=== PATIENT | female | born 1930 | race Caucasian/White ===

== ENCOUNTER 2016-11-08 08:58 | Inpatient (IN) ==
--- NOTE | 2016-11-08 09:03 | Emergency Department Note ---
Disposition Clinical Impression: Pneumonia Qualifiers: Pneumonia type: due to unspecified organism Laterality: right Lung location: upper lobe of lung Qualified Code(s): J18.1 - Lobar pneumonia, unspecified organism Chest pain Qualifiers: Chest pain type: unspecified Qualified Code(s): R07.9 - Chest pain, unspecified Disposition: Admitted As Inpatient Condition: Fair Referrals: Albina Bryson MD [Primary Care Provider] - Time of Disposition: 10:56 Chest Pain HPI - General Stated Complaint: chest pain Time Seen by Provider: 11/08/16 08:59 Source: patient Mode of arrival: wheelchair Limitations: no limitations Vital Signs Reviewed: Yes Nursing Notes Reviewed: Yes - History of Present Illness HPI Narrative: 86-year-old with a 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 Pt complaint: chest pain Onset (ago): Just [employer] Duration: constant Pain Location: right chest Quality: aching Pain Radiation: none Improves with: nothing Worsens with: nothing - Related Data Home Medications Medication Instructions Recorded Confirmed Albuterol Sulfate [Proair HFA] 1 puff IH Q4HR PRN 04/29/15 11/04/16 Aspirin 81 mg PO DAILY 04/29/15 11/04/16 Calcium 600 + D Tablet 1 tab PO DAILY 04/29/15 11/04/16 Dicyclomine HCl [Bentyl] 10 mg PO TID PRN 04/29/15 11/04/16 Diltiazem HCl 120 mg PO DAILY 04/29/15 11/04/16 Furosemide [Lasix] 40 mg PO BID PRN 04/29/15 11/04/16 Hydrochlorothiazide 25 mg PO DAILY 04/29/15 11/04/16 LORazepam [Ativan] 1 mg PO QID PRN 04/29/15 11/04/16 Lidocaine/Prilocaine [Emla Cream] 30 gm TP PRN PRN 04/29/15 11/04/16 Lisinopril [Zestril] 20 mg PO BID 04/29/15 11/04/16 Metoprolol [Lopressor] 25 mg PO BID 04/29/15 11/04/16 Mometasone/Formoterol [Dulera 200 2 puff IH BID 04/29/15 11/04/16 Mcg/5 Mcg Inhaler] Ondansetron HCl [Zofran] 8 mg PO Q8H PRN 04/29/15 11/04/16 Prochlorperazine Maleate 10 mg PO Q6HR PRN 04/29/15 11/04/16 [Compazine] Previous Rx's Medication Instructions Recorded Hydrocortisone 1% CREAM [Cortaid] 14 gm TP PRN PRN #1 bottle 02/13/16 Letrozole [Femara] 2.5 mg PO DAILY #90 tablet 02/19/16 Sertraline [Zoloft] 1 tab PO DAILY #30 tablet 04/29/16 PredniSONE 60 mg PO DAILY 5 Days 07/16/16 Colchicine [Colcrys] 0.6 mg PO NOW PRN #30 tablet 08/05/16 Memantine [Namenda] 5 mg PO HS #30 tablet 09/22/16 Febuxostat [Uloric] 40 mg PO DAILY #30 tablet 10/26/16 Allergies Allergy/AdvReac Type Severity Reaction Status Date / Time Penicillins Allergy Mild Hives, Verified 05/06/15 10:42 shortness of breath Constitutional: Denies: fever, chills, weakness, weight change Eyes: Denies: eye pain, eye discharge, vision change ENT ED: Denies: ear pain, throat pain, dental pain, hearing loss, epistaxis, congestion, dysphagia Cardiovascular: Reports: chest pain. Denies: palpitations, dyspnea on exertion , edema, syncope Respiratory: Denies: cough, dyspnea, wheezes, hemoptysis, stridor Gastrointestinal: Reports: abdominal pain. Denies: nausea, vomiting, diarrhea, constipation, hematemesis, melena, hematochezia Genitourinary: Denies: dysuria, frequency, hematuria, discharge Musculoskeletal: Denies: back pain, neck pain, arthralgia, myalgia Integumentary: Denies: rash, abrasion, lesions Neurological: Denies: headache, weakness, numbness, paresthesias, confusion, abnormal gait, vertigo Psychiatric: Denies: anxiety, depression, suicidal thoughts, homicidal thoughts , auditory hallucinations, visual hallucinations Endocrine: Denies: fatigue Hematological/Lymphatic: Denies: easy bleeding, easy bruising Allergic/Immunologic: Denies: facial swelling, urticaria Chest Pain PMH - Past Medical History Medical history: Reports: asthma, cancer, CHF Surgical history: Reports: appendectomy, cancer surgery, cholecystectomy, other Psychiatric history: Reports: no psych history - Social History Smoking Status: Never smoker Alcohol use: Reports: none Drug use: Reports: none Physical Exam - General Limitations: no limitations - Head Head exam: atraumatic, normocephalic, normal inspection - Eye Eye exam: Present: normal appearance, PERRL, EOMI - ENT ENT exam: normal exam, normal oropharynx, mucous membranes moist - Neck Neck exam: Present: normal inspection, full ROM, trachea midline - Chest Chest inspection: Present: normal inspection, symmetric chest wall rise - Respiratory Respiratory exam: Present: normal lung sounds bilaterally - Cardiovascular Cardiovascular exam: Present: regular rate, normal rhythm, normal heart sounds - Abdominal Exam Abdominal exam: Present: soft, Non-Tender. Absent: tenderness, distention, guarding, rebound, rigidity - Extremities Exam Extremities exam: Present: normal inspection, full ROM. Absent: tenderness, pedal edema - Back Exam Back exam: Present: normal inspection, full ROM. Absent: tenderness - Neurological Exam Neurological exam: Present: alert, oriented X3 - Psychiatric Psychiatric exam: Present: normal affect, normal mood - Skin Skin exam: Present: warm, dry, intact, normal color Course - Consultations Consultation #1: Discussed with Dr. Roche, admit to the hospitalist and they will see in consult. Recommend Trice. Time: 10:54 Consultation #2: Discussed with bryanna Sims. Time: 11:07 Vital Signs Temperature 97.8 F 11/08/16 09:01 Pulse Rate 68 11/08/16 09:01 Respiratory Rate 24 11/08/16 09:01 Blood Pressure 171/64 11/08/16 09:01 O2 Sat by Pulse Oximetry 95 11/08/16 09:01 Temperature 97.8 F 11/08/16 09:01 Pulse Rate 59 11/08/16 10:13 Respiratory Rate 18 11/08/16 10:13 Blood Pressure 159/72 11/08/16 10:13 O2 Sat by Pulse Oximetry 95 11/08/16 10:13 Oxygen Delivery Oxygen Delivery Nasal Cannula Chest Pain - Lab Data Lab results reviewed: Yes I reviewed the patient's lab results. Result diagrams: 11/08/16 09:13 02/13/17 09:13 Lab Results 11/08/16 11/08/16 11/08/16 Range/Units 09:13 09:13 09:13 WBC 8.5 (4.3-11.1) K/mcL RBC 4.09 (3.82-4.97) M/mcL Hgb 11.6 (11.5-15.4) g/dL Hct 36.3 (35.3-44.9) % MCV 88.8 (83.0-100.0) fL MCH 28.4 (28.0-33.3) pg MCHC 32.0 (31.6-35.5) g/dL RDW 14.1 (11.5-14.5) % Plt Count 194 (140-400) K/mcL MPV 10.1 (9.4-12.4) fL Immature Gran % 0.4 (0-4) % Seg Neutrophils % 77.5 % Lymphocytes % 12.4 % Monocytes % 5.8 % Eosinophils % 3.2 % Basophils % 0.7 % Neutrophils # 6.6 (1.6-8.9) K/mcL Lymphocytes # 1.1 (0.6-4.6) K/mcL Monocytes # 0.5 (0.0-1.3) K/mcL Eosinophils # 0.3 (0.0-0.6) K/mcL Basophils # 0.1 (0.0-0.2) K/mcL PT 12.0 (9.4-12.1) Seconds INR 1.1 APTT 30.4 (26.0-36.0) Seconds D-Dimer (0-500) ng/mLFEU Sodium (136-145) mEq/L Potassium (3.5-4.5) mEq/L Chloride (98-109) mEq/L Carbon Dioxide (19-29) mEq/L BUN (7-20) mg/dL Creatinine (0.57-1.11) mg/dL Est GFR ( Amer) (> 60) Est GFR (Non-Af Amer) (> 60) BUN/Creatinine Ratio (6-26) Glucose (70-99) mg/dL Calculated Osmolality (280-300) Calcium (8.6-10.8) mg/dL Troponin I (0-0.03) ng/mL B-Natriuretic Peptide 167 H (0-100) pg/mL 11/08/16 11/08/16 11/08/16 Range/Units 09:13 09:13 09:13 WBC (4.3-11.1) K/mcL RBC (3.82-4.97) M/mcL Hgb (11.5-15.4) g/dL Hct (35.3-44.9) % MCV (83.0-100.0) fL MCH (28.0-33.3) pg MCHC (31.6-35.5) g/dL RDW (11.5-14.5) % Plt Count (140-400) K/mcL MPV (9.4-12.4) fL Immature Gran % (0-4) % Seg Neutrophils % % Lymphocytes % % Monocytes % % Eosinophils % % Basophils % % Neutrophils # (1.6-8.9) K/mcL Lymphocytes # (0.6-4.6) K/mcL Monocytes # (0.0-1.3) K/mcL Eosinophils # (0.0-0.6) K/mcL Basophils # (0.0-0.2) K/mcL PT (9.4-12.1) Seconds INR APTT (26.0-36.0) Seconds D-Dimer 1606 H (0-500) ng/mLFEU Sodium 141 (136-145) mEq/L Potassium 4.1 (3.5-4.5) mEq/L Chloride 105 (98-109) mEq/L Carbon Dioxide 26 (19-29) mEq/L BUN 17 (7-20) mg/dL Creatinine 0.94 (0.57-1.11) mg/dL Est GFR ( Amer) > 60 (> 60) Est GFR (Non-Af Amer) 57 L (> 60) BUN/Creatinine Ratio 18 (6-26) Glucose 105 H (70-99) mg/dL Calculated Osmolality 294 (280-300) Calcium 9.5 (8.6-10.8) mg/dL Troponin I 0.00 (0-0.03) ng/mL B-Natriuretic Peptide (0-100) pg/mL - Radiology Data Radiology results reviewed: Yes I reviewed the patient's radiology results. Chest X-Ray 11/08/16 09:00 IMPRESSION: Right mid lung airspace opacity corresponds to an area of scarring identified on recent CT chest. No new focal consolidation. Left-sided MediPort catheter tip projects over the distal left brachiocephalic vein. D/ : / 11/08/2016 09:56:18 Leigh Branch MD / Ivana Rousseau Interpreting Provider: Leigh Branch MD Abdomen/Pelvis CTA 11/08/16 09:04 IMPRESSION: 1. New right upper lobe infiltrate compared to CT eleven days ago, consistent with a pneumonia. Otherwise stable CT of the chest. 2. No acute findings within the abdomen or pelvis. Redemonstration of presumed hepatic metastatic disease as well as omental caking consistent with carcinomatosis. 3. Severe aortoiliac plaque disease. 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 4. No evidence of pulmonary embolic disease. D/ /08/2016 10:45:13 Pete Ortega MD / mariam Interpreting Provider: Pete Ortega MD Chest CTA 11/08/16 09:04 IMPRESSION: 1. New right upper lobe infiltrate compared to CT eleven days ago, consistent with a pneumonia. Otherwise stable CT of the chest. 2. No acute findings within the abdomen or pelvis. Redemonstration of presumed hepatic metastatic disease as well as omental caking consistent with carcinomatosis. 3. Severe aortoiliac plaque disease. 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 4. No evidence of pulmonary embolic disease. D/ /08/2016 10:45:13 Pete Ortega MD / mariam Interpreting Provider: Pete Ortega MD - EKG Data EKG attestation: Yes I reviewed and interpreted this EKG. EKG shows normal: sinus rhythm Rate: normal Rhythm: NSR Heart block present: 1st Degree Interpretation: no acute changes
[2016-11-08] MEDS ORDERED: Ondansetron 4 MG/2 ML VIAL IVP ONE (09:08)
[2016-11-08] MEDS ORDERED: *HR* HYDROmorphone (PF) 1 MG/ML SYRINGE IVP ONE (09:08)
[2016-11-08 09:21] LABS: Basophils # 0.1 K/mcL (0.0-0.2); Basophils % 0.7 %; Eosinophils # 0.3 K/mcL (0.0-0.6); Eosinophils % 3.2 %; Hematocrit 36.3 % (35.3-44.9); Hemoglobin 11.6 g/dL (11.5-15.4); Immature Granulocytes % 0.4 % (0-4); Lymphocytes # 1.1 K/mcL (0.6-4.6); Lymphocytes % 12.4 %; Mean Corpuscular Hemoglobin 28.4 pg (28.0-33.3); Mean Corpuscular Volume 88.8 fL (83.0-100.0); Mean Platelet Volume 10.1 fL (9.4-12.4); Monocytes # 0.5 K/mcL (0.0-1.3); Monocytes % 5.8 %; Neutrophils # 6.6 K/mcL (1.6-8.9); Platelet Count 194 K/mcL (140-400); Red Blood Count 4.09 M/mcL (3.82-4.97); Red Cell Distribution Width 14.1 % (11.5-14.5); Segmented Neutrophils % 77.5 %
[2016-11-08 09:26] LABS: INR 1.1
[2016-11-08 09:28] LABS: Activated Partial Thrombo Time 30.4 Seconds (26.0-36.0)
[2016-11-08 09:36] LABS: BUN/Creatinine Ratio 18 (6-26); Blood Urea Nitrogen 17 mg/dL (7-20); Calcium 9.5 mg/dL (8.6-10.8); Carbon Dioxide 26 mEq/L (19-29); Chloride 105 mEq/L (98-109); Glucose 105 mg/dL (70-99); Osmolality,Calculated 294 (280-300); Potassium 4.1 mEq/L (3.5-4.5); Sodium 141 mEq/L (136-145); eGFR For African Americans > 60 (> 60); eGFR For Non-African Americans 57 (> 60)
[2016-11-08] MEDS ORDERED: Levofloxacin 750 MG/150 ML 750 MG/150 ML BAG IVPB ONE (10:45)
[2016-11-08] MEDS ORDERED: Acetaminophen 325 MG TABLET PO PRN (14:08)
[2016-11-08] MEDS ORDERED: Ondansetron 4 MG/2 ML VIAL IVP PRN (14:08)
[2016-11-08] MEDS ORDERED: Naloxone 0.4 MG/ML INJ IVP PRN (14:08)
[2016-11-08] MEDS ORDERED: Colchicine 0.6 MG TABLET PO PRN (14:18)
[2016-11-08] MEDS ORDERED: Furosemide 40 MG TABLET PO PRN (14:18)
--- NOTE | 2016-11-08 14:22 | Internal Med History&Physical ---
Date of Encounter: 11/08/16 Time of Encounter: 11:00 Assessment and Plan (1) Right upper lobe pneumonia Current visit: Yes Status: Acute Community-acquired pneumonia. The patient did not have recent hospitalization or chemotherapy. We will treat with Levaquin. Check pneumococcal antigen. Follow-up blood cultures. Oxygen as needed. Hydromorphone as needed for pain. The patient is at high risk for morbidity and mortality complications due to pneumonia and history of active cancer and use of IV control substances which are needed for pain control. Qualifiers: Pneumonia type: due to unspecified organism Qualified Code(s): J18.1 - Lobar pneumonia, unspecified organism (2) Primary peritoneal carcinomatosis Current visit: No Status: Acute Possibly responsible for the liver metastasis. Per chart review there was a note to the previous oncology visit of a right upper lobe lung nodule. I wonder that could be responsible for the pneumonia, but causing obstruction. Ask oncology to provide some improvement. We will continue with anti-estrogen therapy. 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 (5) Breast cancer Current visit: Yes Status: Acute This has been in remission after chemotherapy and resection. We will consult oncology. Qualifiers: Breast location: unspecified site of breast Patient sex: female Laterality: right Qualified Code(s): C50.911 - Malignant neoplasm of unspecified site of right female breast Internal Medicine - H&P: HPI Chief complaint: Chest pain Admitted From: Emergency Dept Plans for Post Hospital Care: Home History of present illness: Ms. Walden is a 86 year old female with history of BRCA2 mutation, breast cancer and metastatic ovarian cancer who presented to the hospital for an outpatient and scheduled liver biopsy and was directed to the emergency department due to reports of chest pain. The patient had severe sudden onset chest pain early this morning located in the right side of the chest worse with inspiration, acute and sharp in nature. Denies associated fever or chest chills diaphoresis, cough and shortness of breath. A CT scan of the chest revealed right upper lobe pneumonia. Family history pertinent for multiple family members tested positive for BRCA2 mutation, patient's daughter suffered with breast cancer. A 10 point review of systems was negative except as above. Past Med Surg Social Fam HX - Past Medical History Medical history: asthma, cancer, CHF Psychiatric history: no psych history - Past Surgical History Surgical History: appendectomy, cancer surgery, cholecystectomy, other - Social History Smoking Status: Never smoker Smokeless Tobacco Status: No Alcohol use: none Drug use: none - Family History Mother Age: 92 Living Status: Age at : 92 Cause of : CHF Hx Family Cardiac Disorders: Yes Hx Family Respiratory Disorders: No Hx Family Cancer: No Hx Family Endocrine Disorder: Yes (DM) Hx Family Neurologic Disorders: No Internal Medicine - H&P: Meds Albuterol Sulfate [Proair HFA] 1 puff IH Q4HR PRN 04/29/15 [History] Furosemide [Lasix] 40 mg PO BID PRN 04/29/15 [History] Hydrochlorothiazide 25 mg PO DAILY 04/29/15 [History] Mometasone/Formoterol [Dulera 200 Mcg/5 Mcg Inhaler] 2 puff IH BID 04/29/15 [ History] Letrozole [Femara] 2.5 mg PO DAILY #90 tablet 02/19/16 [Rx] Colchicine [Colcrys] 0.6 mg PO NOW PRN #30 tablet 08/05/16 [Rx] Memantine [Namenda] 5 mg PO HS #30 tablet 09/22/16 [Rx] Febuxostat [Uloric] 40 mg PO DAILY #30 tablet 10/26/16 [Rx] Diltiazem HCl [Diltiazem ER] 180 mg PO QAM 11/08/16 [History] Metoprolol [Lopressor] 50 mg PO BID 11/08/16 [History] Potassium Chloride [Klor-Con 10] 10 meq PO Q48H 11/08/16 [History] Ropinirole HCl [Requip] 0.5 - 1 mg PO HS 11/08/16 [History] Allergies Penicillins Allergy (Mild, Verified 11/08/16 12:02) Hives, shortness of breath All Systems PM: A 10-system review of systems was performed and is negative for pertinent findings except as documented above in the HPI. - Constitutional Vitals: Temp Pulse Resp BP Pulse Ox 97.4 F L 55 20 140/59 93 L 11/08/16 13:28 11/08/16 13:28 11/08/16 13:28 11/08/16 13:28 11/08/16 13:34 General appearance: Present: A&O X 3 - Respiratory Respiratory exam: Present: CTAB. Absent: accessory muscle use, rales, rhonchi, wheezes - Cardiovascular Cardiovascular exam: Present: RRR, +S1, +S2. Absent: diastolic murmur, gallop, rubs, systolic murmur - GI/Abdominal GI/Abdominal exam: Present: normal bowel sounds, soft, no peritoneal signs. Absent: distended, tenderness - Extremities Exam Extremities exam: Present: warm, radial pulses palpable and symetrical. Absent : calf tenderness, cyanotic, pedal edema Additional comments: Right upper extremity lymphedema - Neurological Exam Neurological exam: Present: CN II-XII intact, oriented X3, no focal deficits. Absent: pronater drift, facial droop, speech deficit - Skin Skin exam: Present: dry, intact Additional comments: Status post right mastectomy Internal Med - H&P Results - Labs CBC & Chem 7: 11/08/16 09:13 11/08/16 09:13
[2016-11-08] MEDS: predniSONE 20 MG TABLET PO SCH (15:17)
[2016-11-08] MEDS: *HR* OxyCODONE Immed Rel 5 MG TABLET PO PRN ×2 (15:17→22:57)
--- NOTE | 2016-11-08 15:46 | Oncology Inp Consult Note ---
Date of Encounter: 11/08/16 Time of Encounter: 17:00 Assessment and Plan (1) Breast cancer in female Status: Acute Assessment and plan: E ER, ME positive and HER-2/joe negative, stage IIIc. She received adjuvant chemotherapy and is currently on Femara, tolerating it well. has lymphedema of the right upper extremity secondary to lymph node dissection. Continue the Femara while the patient is in the hospital. She will follow-up with Dr. Rocha as an outpatient. Qualifiers: Qualified Code(s): C50.011 - Malignant neoplasm of nipple and areola, right female breast (2) Pneumonia Status: Acute Assessment and plan: Incidental finding of right upper lobe pneumonia on CT scan of the chest done today to rule out PE. Apart from pain on inspiration, the patient does not have any other symptoms of a pneumonia such as cough, shortness of breath or fever. She is currently on Levaquin. Qualifiers: Pneumonia type: due to unspecified organism Laterality: right Lung location: upper lobe of lung Qualified Code(s): J18.1 - Lobar pneumonia, unspecified organism (3) Primary peritoneal carcinomatosis Status: Acute Assessment and plan: The omental mass has been stable on prior imaging, but she has new metastatic disease in the liver. The liver mass as well as the omental mass or stable on a CT of the abdomen obtained today. The patient was scheduled for a liver biopsy today but was unable to get it. If the patient is going to be the hospital for 2-3 days, recommend that the liver biopsy be done while she is an inpatient. She currently does not have any symptoms from the carcinomatosis. (4) Chest wall pain, chronic Status: Acute Assessment and plan: Could be related to right chest wall nodularity that developed after right mastectomy. I am not certain if the liver metastases are also contributing to the pain. Also possible that the right lung pneumonia may be causing pain on deep inspiration. (5) Anemia Status: Acute Assessment and plan: Chronic, hemoglobin is almost normal today. Most probably related to underlying inflammation from malignancy. Qualifiers: Qualified Code(s): D64.81 - Anemia due to antineoplastic chemotherapy - Data of Consult Requesting Physician: Thalia Zeng Primary Care Provider: Albina Bryson - Consult Narrative Reason for consult: Hx of breast cancer History of present illness: Ms. Walden is an 86 year old female with a history of triple positive breast cancer, peritoneal carcinomatosis, BRCA2 positive, who is admitted today with complaints of right chest pain when she presented to the hospital for a liver biopsy. The chest pain was of sudden onset, worse on taking a deep breath. CT of the chest at admission showed right upper lobe airspace disease concerning for pneumonia. Oncology has been consulted for history of breast and Ovarian cancers. the patient is followed by Dr. Rocha at [facility]. the breast cancer was diagnosed in November 2014 and she had right mastectomy and left lumpectomy in December. The left breast did not show any evidence of malignancy. the right breast showed evidence of invasive ductal carcinoma,ER, ME positive and HER-2 negative. 5.5 cm in maximal dimension, 12 out of 18 lymph nodes positive and with lymphovascular, T3 N3 M0, stage IIIc. she received adjuvant therpy with Cytoxan and Taxotere from February to April, followed by radiation, which finished in July. Imaging in September 2015 showed a 2.6 centimeter irregular omental thickening in the left lower abdominal wall. This mass had FDG avidity on PET scan and was present on a previous PET scan. 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 Recommendations from [facility], were for chemotherapy with carboplatin and Taxol to be followed by resection, but the patient declined. She was started on Arimidex since ER and ME were positive but she developed a rash and was changed to Femara. CT of the chest, abdomen and pelvis on 10/28/2016 showed new metastatic disease in the liver, and other stable changes without any other new metastatic disease. Genetic testing at [facility] revealed that she is BRCA 2 positive. Her 2 daughters are also BRCA2 positive. She was scheduled for liver biopsy to establish the site of origin of metastatic disease. Today the patient reports continued pain in the right chest, worse with breathing. She had otherwise been doing well as an outpatient and denied any fevers, chills or shortness of breath. She denied any problems with the Femara. Past Med Surg Social Fam HX - Past Medical History Medical history: asthma, cancer, CHF Psychiatric history: no psych history - Past Surgical History Surgical History: appendectomy, cancer surgery, cholecystectomy, other - Social History Smoking Status: Never smoker Smokeless Tobacco Status: No Alcohol use: none Drug use: none - Family History Mother Age: 92 Living Status: Age at : 92 Cause of : CHF Hx Family Cardiac Disorders: Yes Hx Family Respiratory Disorders: No Hx Family Cancer: No Hx Family Endocrine Disorder: Yes (DM) Hx Family Neurologic Disorders: No Medications and Allergies Albuterol Sulfate [Proair HFA] 1 puff IH Q4HR PRN 04/29/15 [History] Furosemide [Lasix] 40 mg PO BID PRN 04/29/15 [History] Hydrochlorothiazide 25 mg PO DAILY 04/29/15 [History] Mometasone/Formoterol [Dulera 200 Mcg/5 Mcg Inhaler] 2 puff IH BID 04/29/15 [ History] Letrozole [Femara] 2.5 mg PO DAILY #90 tablet 02/19/16 [Rx] Colchicine [Colcrys] 0.6 mg PO NOW PRN #30 tablet 08/05/16 [Rx] Memantine [Namenda] 5 mg PO HS #30 tablet 09/22/16 [Rx] Febuxostat [Uloric] 40 mg PO DAILY #30 tablet 10/26/16 [Rx] Diltiazem HCl [Diltiazem ER] 180 mg PO QAM 11/08/16 [History] Metoprolol [Lopressor] 50 mg PO BID 11/08/16 [History] Potassium Chloride [Klor-Con 10] 10 meq PO Q48H 11/08/16 [History] Ropinirole HCl [Requip] 0.5 - 1 mg PO HS 11/08/16 [History] Allergies Penicillins Allergy (Mild, Verified 11/08/16 12:02) Hives, shortness of breath All systems: reviewed and no additional remarkable complaints except as stated Oncology - Exam - Constitutional Vitals: Temp Pulse Resp BP Pulse Ox 97.9 F 61 17 148/76 95 11/08/16 15:14 11/08/16 15:14 11/08/16 15:14 11/08/16 15:14 11/08/16 15:14 General appearance: cooperative, no acute distress, obese - Head Head exam: Present: atraumatic, normocephalic - Eye Eye exam: Present: EOMI, PERRL - ENT ENT exam: Present: mucous membranes moist, normal exam, normal oropharynx - Neck Neck exam: Present: full ROM, normal inspection - Respiratory Respiratory exam: Present: chest wall tenderness, decreased breath sounds - Cardiovascular Cardiovascular exam: Present: RRR, +S1, +S2 - GI/Abdominal GI/Abdominal exam: Present: distended, normal bowel sounds, soft - Extremities Exam Extremities exam: Present: full ROM, normal capillary refill, normal inspection Consult Discharge Plan - Plan Referrals: Albina Bryson MD [Primary Care Provider] -
[2016-11-08] MEDS: Ipratropium/Albuterol Neb 3 ML IH SCH ×2 (16:32→22:41)
--- NOTE | 2016-11-08 19:48 | Electrocardiograph Report ---
[place] [id number] Test Date: 2016-11-08 Pat Name: Juanis Walden Department: 103 Room: 3B45 Gender: F Certified Tumor Registrar: : [id number] Requested By: [facility] [place] Order Number: [id number] Reading MD: Cody Orellana DO Measurements Intervals [place] Rate: 68 P: 64 UT: 220 QRS: -1 QRSD: 81 T: 27 QT: 392 QTc: 409 Interpretive Statements SINUS RHYTHM WITH FIRST DEGREE AV BLOCK Electronically Signed On 11-08-2016 19:46:46 EST by Cody Orellana DO
[2016-11-08] MEDS ORDERED: NON-FORMULARY MEDICATION 1 EACH EACH (Mometasone/Formoterol [Dulera 200 Mcg/5 Mcg Inhaler] IH SCH (21:00)
[2016-11-08] MEDS: rOPINIRole 1 MG TABLET PO SCH (21:51)
[2016-11-09] MEDS: *HR* HYDROmorphone (PF) 1 MG/ML SYRINGE IVP PRN (01:40)
[2016-11-09] MEDS: Ipratropium/Albuterol Neb 3 ML IH SCH ×4 (03:49→22:11)
[2016-11-09 05:10] LABS: Basophils % 0.3 %; Eosinophils % 0.1 %; Hemoglobin 10.3 g/dL (11.5-15.4); Immature Granulocytes % 0.3 % (0-4); Lymphocytes # 0.6 K/mcL (0.6-4.6); Lymphocytes % 9.2 %; Mean Corpuscular HGB Conc 32.2 g/dL (31.6-35.5); Mean Corpuscular Hemoglobin 28.5 pg (28.0-33.3); Mean Corpuscular Volume 88.6 fL (83.0-100.0); Mean Platelet Volume 10.4 fL (9.4-12.4); Monocytes # 0.2 K/mcL (0.0-1.3); Monocytes % 2.4 %; Neutrophils # 6.1 K/mcL (1.6-8.9); Platelet Count 171 K/mcL (140-400); Red Blood Count 3.61 M/mcL (3.82-4.97); Red Cell Distribution Width 13.9 % (11.5-14.5); Segmented Neutrophils % 87.7 %
[2016-11-09 05:28] LABS: BUN/Creatinine Ratio 20 (6-26); Blood Urea Nitrogen 19 mg/dL (7-20); Calcium 9.2 mg/dL (8.6-10.8); Carbon Dioxide 25 mEq/L (19-29); Chloride 106 mEq/L (98-109); Glucose 128 mg/dL (70-99); Osmolality,Calculated 292 (280-300); Sodium 139 mEq/L (136-145); eGFR For African Americans > 60 (> 60); eGFR For Non-African Americans 55 (> 60)
[2016-11-09] MEDS: hydroCHLOROthiazide 25 MG TABLET PO SCH (08:41)
[2016-11-09] MEDS: Letrozole 2.5 MG TABLET PO SCH (08:41)
[2016-11-09] MEDS: predniSONE 20 MG TABLET PO SCH (08:41)
[2016-11-09] MEDS: (Febuxostat [Uloric] 40 MG) PO SCH (08:41)
[2016-11-09] MEDS: Diltiazem CD (24hr) 180 MG CAPSULE PO SCH (08:42)
[2016-11-09] MEDS ORDERED: Levofloxacin 750 MG/150 ML 750 MG/150 ML BAG IVPB SCH (09:00)
[2016-11-09] MEDS: *HR* OxyCODONE Immed Rel 5 MG TABLET PO PRN (11:13)
--- NOTE | 2016-11-09 17:14 | Internal Med Progress Note ---
Date of Encounter: 11/09/16 Time of Encounter: 10:00 - Assessment and plan (1) Right upper lobe pneumonia Current Visit: Yes Status: Acute Assessment and plan: Continue Levaquin treatment Qualifiers: Pneumonia type: due to unspecified organism Qualified Code(s): J18.1 - Lobar pneumonia, unspecified organism (2) Chest pain Current Visit: Yes Status: Acute Assessment and plan: Patient has right sided chest pain, most like pleural pain. Consistent with right-sided pneumonia. CTA has ruled out PE. Initial troponin negative. We will continue antibiotics for pneumonia. Qualifiers: Chest pain type: chest pain on breathing Qualified Code(s): R07.1 - Chest pain on breathing (3) Liver mass Current Visit: Yes Status: Acute Assessment and plan: Suspect for metastatic tumor. Plan for liver biopsy (4) Breast cancer Current Visit: Yes Status: Acute Assessment and plan: pt is follow up with oncologist as outpatient Qualifiers: Breast location: unspecified site of breast Patient sex: female Laterality: right Qualified Code(s): C50.911 - Malignant neoplasm of unspecified site of right female breast (5) DVT prophylaxis Current Visit: Yes Status: Acute Assessment and plan: Heparin subcutaneously (6) Primary peritoneal carcinomatosis Current Visit: No Status: Acute Assessment and plan: Fall oncologist as outpatient (7) CHF (congestive heart failure) Current Visit: No Status: Chronic Assessment and plan: Previous echo reviewed, diastolic CHF. No signs of exacerbation. Continue home medications. Qualifiers: Congestive heart failure type: diastolic Congestive heart failure chronicity: chronic Qualified Code(s): I50.32 - Chronic diastolic (congestive ) heart failure - Time Spent With Patient 25 - 35 minutes - Subjective Interval history: Patient is a 86-year-old female admitted for chest pain. Her past medical history is significant for BRCA2 mutation, breast cancer and metastatic ovarian cancer, asthma, CHF. Patient was seen and examined, she is awake and alert, oriented 3. Complaining of right-sided chest pain, pain is aggravated by deep breath. Vital signs stable. No shortness of breath. Mild cough. Oncology consult appreciated. Plan for liver biopsy because there is a suspected the metastatic mass in liver. Continue antibiotic treatment for pneumonia. - Constitutional Vitals: Temp Pulse Resp BP Pulse Ox 98.2 F 80 15 129/75 94 L 11/09/16 15:24 11/09/16 15:24 11/09/16 15:24 11/09/16 15:24 11/09/16 15:24 General appearance: Present: A&O X 3, no acute distress - Head Head exam: Present: atraumatic, normocephalic - Eye Eye exam: Present: PERRL, conjuntiva pink, sclera anicteric Pupils: Present: PERRL - Neck Neck exam general surgery: Present: supple, trachea midline. Absent: lymphadenopathy - Respiratory Respiratory exam: Present: CTAB. Absent: accessory muscle use, rales, rhonchi, wheezes - Cardiovascular Cardiovascular exam: Present: RRR, +S1, +S2. Absent: diastolic murmur, gallop, rubs, systolic murmur - GI/Abdominal GI/Abdominal exam: Present: normal bowel sounds, soft, no peritoneal signs. Absent: distended, tenderness - Extremities Exam Extremities exam: Present: warm, radial pulses palpable and symetrical. Absent : calf tenderness, cyanotic, pedal edema - Neurological Exam Neurological exam: Present: CN II-XII intact, oriented X3, no focal deficits. Absent: pronater drift, facial droop, speech deficit - Skin Skin exam: Present: dry, intact Internal Medicine: Result - Labs CBC & Chem 7: 11/09/16 04:43 11/09/16 04:43 Labs: Short CBC 11/09/16 Range/Units 04:43 WBC 7.0 (4.3-11.1) K/mcL Hgb 10.3 L (11.5-15.4) g/dL Hct 32.0 L (35.3-44.9) % Plt Count 171 (140-400) K/mcL Neutrophils # 6.1 (1.6-8.9) K/mcL BMP 11/09/16 04:43 Sodium 139 Potassium 5.0 H Chloride 106 Carbon Dioxide 25 BUN 19 Creatinine 0.96 Glucose 128 H Calcium 9.2 - ABG Interpretation ABG results: PT/INR, D-dimer PT 12.0 Seconds (9.4-12.1) 11/08/16 09:13 D-Dimer 1606 ng/mLFEU (0-500) H 11/08/16 09:13 Consult Discharge Plan - Plan Referrals: Albina Bryson MD [Primary Care Provider] - 11/16/16 10:45 am
[2016-11-09] MEDS: *HR* Heparin 5,000 UNIT/ML VIAL SQ SCH (18:36)
[2016-11-09] MEDS: rOPINIRole 1 MG TABLET PO SCH (20:34)
[2016-11-10] MEDS: Ipratropium/Albuterol Neb 3 ML IH SCH ×5 (03:51→21:41)
[2016-11-10 05:22] LABS: Basophils % 0.4 %; Eosinophils % 0.4 %; Hematocrit 30.8 % (35.3-44.9); Hemoglobin 9.9 g/dL (11.5-15.4); Immature Granulocytes % 0.5 % (0-4); Lymphocytes % 11.5 %; Mean Corpuscular HGB Conc 32.1 g/dL (31.6-35.5); Mean Corpuscular Hemoglobin 28.3 pg (28.0-33.3); Mean Platelet Volume 10.6 fL (9.4-12.4); Monocytes # 0.5 K/mcL (0.0-1.3); Monocytes % 5.4 %; Platelet Count 173 K/mcL (140-400); Red Cell Distribution Width 14.1 % (11.5-14.5); Segmented Neutrophils % 81.8 %
[2016-11-10 05:31] LABS: BUN/Creatinine Ratio 28 (6-26); Blood Urea Nitrogen 29 mg/dL (7-20); Calcium 9.1 mg/dL (8.6-10.8); Carbon Dioxide 26 mEq/L (19-29); Chloride 105 mEq/L (98-109); Glucose 111 mg/dL (70-99); Osmolality,Calculated 297 (280-300); Potassium 4.4 mEq/L (3.5-4.5); Sodium 140 mEq/L (136-145); eGFR For African Americans > 60 (> 60); eGFR For Non-African Americans 52 (> 60)
[2016-11-10] MEDS: Acetylcysteine 10% 2 ML INHSOL IH SCH ×3 (09:10→21:41)
[2016-11-10] MEDS: *HR* Heparin 5,000 UNIT/ML VIAL SQ SCH ×2 (09:10→17:20)
[2016-11-10] MEDS ORDERED: *HR* Midazolam HCl 2 MG/2 ML VIAL IV PRN (09:55)
[2016-11-10] MEDS ORDERED: *HR* FentaNYL (PF) 100 MCG/2 ML VIAL IV PRN (09:55)
[2016-11-10] MEDS ORDERED: 0.9 % Sodium Chloride 500 ML ONE (09:58)
--- NOTE | 2016-11-10 10:39 | IR Procedure Note ---
Date of procedure: 11/10/16 Consent Obtained: Written consent Timeout: Correct patient and procedure verified, Correct site verified, Time out performed, Skin prep completed Local anesthetic: Lidocaine 1% Indications: Liver mass, breast and ovarian CA Procedure Performed: Liver mass bx Site/Technique: 18g cores, approx 7, from 3 different areas within mass Results/Findings: Poor cellularity despite within lesion on imaging, 3 spots bx' d Estimated blood loss (cc): 3 Complications: None; Tolerated procedure well Post Procedure Treatment Plan: Monitoring in pts room
[2016-11-10] MEDS ORDERED: Levofloxacin 750 MG/150 ML 750 MG/150 ML BAG IVPB SCH (11:00)
[2016-11-10] MEDS: (Febuxostat [Uloric] 40 MG) PO SCH (13:24)
[2016-11-10] MEDS: Letrozole 2.5 MG TABLET PO SCH (13:31)
[2016-11-10] MEDS: *HR* OxyCODONE Immed Rel 5 MG TABLET PO PRN (13:32)
[2016-11-10] MEDS: Diltiazem CD (24hr) 180 MG CAPSULE PO SCH (14:21)
[2016-11-10] MEDS: hydroCHLOROthiazide 25 MG TABLET PO SCH (14:21)
--- NOTE | 2016-11-10 16:54 | Internal Med Progress Note ---
Date of Encounter: 11/10/16 Time of Encounter: 10:00 - Assessment and plan (1) Right upper lobe pneumonia Current Visit: Yes Status: Acute Assessment and plan: Continue Levaquin treatment Qualifiers: Pneumonia type: due to Pneumococcus Qualified Code(s): J13 - Pneumonia due to Streptococcus pneumoniae (2) Chest pain Current Visit: Yes Status: Acute Assessment and plan: Patient has right sided chest pain, most like pleural pain. Consistent with right-sided pneumonia. CTA has ruled out PE. Initial troponin and a followed troponin negative. We will continue antibiotics for pneumonia. Qualifiers: Chest pain type: chest pain on breathing Qualified Code(s): R07.1 - Chest pain on breathing (3) Liver mass Current Visit: Yes Status: Acute Assessment and plan: Suspect for metastatic tumor. Plan for liver biopsy (4) Breast cancer Current Visit: Yes Status: Acute Assessment and plan: pt is follow up with oncologist as outpatient Qualifiers: Breast location: unspecified site of breast Patient sex: female Laterality: right Qualified Code(s): C50.911 - Malignant neoplasm of unspecified site of right female breast (5) DVT prophylaxis Current Visit: Yes Status: Acute Assessment and plan: Heparin subcutaneously (6) Primary peritoneal carcinomatosis Current Visit: No Status: Acute Assessment and plan: Fall oncologist as outpatient (7) CHF (congestive heart failure) Current Visit: No Status: Chronic Assessment and plan: Previous echo reviewed, diastolic CHF. No signs of exacerbation. Continue home medications. Qualifiers: Congestive heart failure type: diastolic Congestive heart failure chronicity: chronic Qualified Code(s): I50.32 - Chronic diastolic (congestive ) heart failure - Time Spent With Patient 25 - 35 minutes - Subjective Interval history: Patient is a 86-year-old female admitted for chest pain. Her past medical history is significant for BRCA2 mutation, breast cancer and metastatic ovarian cancer, asthma, CHF. Patient was seen and examined, she is awake and alert, oriented 3. Complaining of right-sided chest pain, pain is aggravated by deep breath. Vital signs stable. No shortness of breath. Mild cough. Pt had liver biopsy today. Continue antibiotic treatment for pneumonia. - Constitutional Vitals: Temp Pulse Resp BP Pulse Ox 97.9 F 65 16 129/65 96 11/10/16 15:10 11/10/16 15:10 11/10/16 15:25 11/10/16 15:10 11/10/16 15:25 General appearance: Present: A&O X 3, no acute distress - Head Head exam: Present: atraumatic, normocephalic - Eye Eye exam: Present: PERRL, conjuntiva pink, sclera anicteric Pupils: Present: PERRL - Neck Neck exam general surgery: Present: supple, trachea midline. Absent: lymphadenopathy - Respiratory Respiratory exam: Present: chest wall tenderness, CTAB. Absent: accessory muscle use, rales, rhonchi, wheezes - Cardiovascular Cardiovascular exam: Present: RRR, +S1, +S2. Absent: diastolic murmur, gallop, rubs, systolic murmur - GI/Abdominal GI/Abdominal exam: Present: normal bowel sounds, soft, no peritoneal signs. Absent: distended, tenderness - Extremities Exam Extremities exam: Present: warm, radial pulses palpable and symetrical. Absent : calf tenderness, cyanotic, pedal edema - Neurological Exam Neurological exam: Present: CN II-XII intact, oriented X3, no focal deficits. Absent: pronater drift, facial droop, speech deficit - Skin Skin exam: Present: dry, intact Internal Medicine: Result - Labs CBC & Chem 7: 11/10/16 04:27 11/10/16 04:27 Labs: Short CBC 11/10/16 Range/Units 04:27 WBC 8.5 (4.3-11.1) K/mcL Hgb 9.9 L (11.5-15.4) g/dL Hct 30.8 L (35.3-44.9) % Plt Count 173 (140-400) K/mcL Neutrophils # 7.0 (1.6-8.9) K/mcL BMP 11/10/16 04:27 Sodium 140 Potassium 4.4 Chloride 105 Carbon Dioxide 26 BUN 29 H D Creatinine 1.02 Glucose 111 H Calcium 9.1 Cardiac Enzymes 11/10/16 Range/Units 04:27 Troponin I 0.01 (0-0.03) ng/mL - ABG Interpretation ABG results: PT/INR, D-dimer PT 12.0 Seconds (9.4-12.1) 11/08/16 09:13 D-Dimer 1606 ng/mLFEU (0-500) H 11/08/16 09:13 - Impressions Impressions Liver Biopsy CT 11/10/16 00:00 IMPRESSION: Successful CT guided core biopsy of the right hepatic lobe as described above. D/ / Pete Merrill MD / Pete Merrill MD Interpreting Provider: Pete Merrill MD Consult Discharge Plan - Plan Referrals: Albina Bryson MD [Primary Care Provider] - 11/16/16 10:45 am
[2016-11-10] MEDS: *HR* HYDROmorphone (PF) 1 MG/ML SYRINGE IVP PRN (21:08)
[2016-11-10] MEDS: rOPINIRole 1 MG TABLET PO SCH (21:09)
[2016-11-10] MEDS: Melatonin 3 MG TABLET PO SCH ×2 (21:09)
[2016-11-11] MEDS: Ipratropium/Albuterol Neb 3 ML IH SCH ×4 (03:25→21:37)
[2016-11-11] MEDS: Acetylcysteine 10% 2 ML INHSOL IH SCH ×4 (03:25→21:37)
[2016-11-11 05:09] LABS: Basophils # 0.1 K/mcL (0.0-0.2); Basophils % 0.7 %; Eosinophils # 0.3 K/mcL (0.0-0.6); Eosinophils % 3.3 %; Hematocrit 33.2 % (35.3-44.9); Hemoglobin 10.1 g/dL (11.5-15.4); Immature Granulocytes % 0.7 % (0-4); Lymphocytes # 0.5 K/mcL (0.6-4.6); Lymphocytes % 6.7 %; Mean Corpuscular HGB Conc 30.4 g/dL (31.6-35.5); Mean Corpuscular Hemoglobin 27.4 pg (28.0-33.3); Mean Platelet Volume 10.3 fL (9.4-12.4); Monocytes # 0.4 K/mcL (0.0-1.3); Monocytes % 5.1 %; Neutrophils # 6.3 K/mcL (1.6-8.9); Platelet Count 177 K/mcL (140-400); Red Blood Count 3.69 M/mcL (3.82-4.97); Red Cell Distribution Width 14.4 % (11.5-14.5); Segmented Neutrophils % 83.5 %
[2016-11-11 05:24] LABS: Potassium 4.5 mEq/L (3.5-4.5)
[2016-11-11] MEDS: *HR* Heparin 5,000 UNIT/ML VIAL SQ SCH ×2 (06:02→17:00)
[2016-11-11] MEDS: Letrozole 2.5 MG TABLET PO SCH (10:00)
[2016-11-11] MEDS: Diltiazem CD (24hr) 180 MG CAPSULE PO SCH (10:00)
[2016-11-11] MEDS: hydroCHLOROthiazide 25 MG TABLET PO SCH (10:00)
[2016-11-11] MEDS: (Febuxostat [Uloric] 40 MG) PO SCH (10:01)
[2016-11-11] MEDS ORDERED: Furosemide 20 MG/2 ML VIAL IVP ONE (10:40)
--- NOTE | 2016-11-11 17:15 | Internal Med Progress Note ---
Date of Encounter: 11/11/16 Time of Encounter: 10:00 - Assessment and plan (1) Right upper lobe pneumonia Current Visit: Yes Status: Acute Assessment and plan: Continue Levaquin treatment. Continue supportive treatment. Qualifiers: Pneumonia type: due to Pneumococcus Qualified Code(s): J13 - Pneumonia due to Streptococcus pneumoniae (2) Chest pain Current Visit: Yes Status: Acute Assessment and plan: Patient has right sided chest pain, most like pleural pain. Consistent with right-sided pneumonia. CTA has ruled out PE. Initial troponin and a followed troponin negative. We will continue antibiotics for pneumonia. Qualifiers: Chest pain type: chest pain on breathing Qualified Code(s): R07.1 - Chest pain on breathing (3) Liver mass Current Visit: Yes Status: Acute Assessment and plan: Suspect for metastatic tumor. Plan for liver biopsy (4) Breast cancer Current Visit: Yes Status: Acute Assessment and plan: pt is follow up with oncologist as outpatient Qualifiers: Breast location: unspecified site of breast Patient sex: female Laterality: right Qualified Code(s): C50.911 - Malignant neoplasm of unspecified site of right female breast (5) DVT prophylaxis Current Visit: Yes Status: Acute Assessment and plan: Heparin subcutaneously (6) Primary peritoneal carcinomatosis Current Visit: No Status: Acute Assessment and plan: Follow up with oncologist as outpatient (7) CHF (congestive heart failure) Current Visit: No Status: Chronic Assessment and plan: Previous echo reviewed, diastolic CHF. No signs of exacerbation. Continue home medications. Qualifiers: Congestive heart failure type: diastolic Congestive heart failure chronicity: chronic Qualified Code(s): I50.32 - Chronic diastolic (congestive ) heart failure - Time Spent With Patient 25 - 35 minutes - Subjective Interval history: Patient is a 86-year-old female admitted for chest pain. Her past medical history is significant for BRCA2 mutation, breast cancer and metastatic ovarian cancer, asthma, CHF. Patient was seen and examined, she is awake and alert, oriented 3. Complaining of right-sided chest pain, pain is aggravated by deep breath. Increased cough. Vital signs stable. No shortness of breath. Pt had liver biopsy. Will continue antibiotic treatment for pneumonia. - Constitutional Vitals: Temp Pulse Resp BP Pulse Ox 98.7 F 69 15 165/68 94 L 11/11/16 15:32 11/11/16 15:32 11/11/16 15:32 11/11/16 15:32 11/11/16 15:32 General appearance: Present: A&O X 3, no acute distress - Head Head exam: Present: atraumatic, normocephalic - Eye Eye exam: Present: PERRL, conjuntiva pink, sclera anicteric Pupils: Present: PERRL - Neck Neck exam general surgery: Present: supple, trachea midline. Absent: lymphadenopathy - Respiratory Respiratory exam: Present: CTAB. Absent: accessory muscle use, rales, rhonchi, wheezes - Cardiovascular Cardiovascular exam: Present: RRR, +S1, +S2. Absent: diastolic murmur, gallop, rubs, systolic murmur - GI/Abdominal GI/Abdominal exam: Present: normal bowel sounds, soft, no peritoneal signs. Absent: distended, tenderness - Extremities Exam Extremities exam: Present: warm, radial pulses palpable and symetrical. Absent : calf tenderness, cyanotic, pedal edema - Neurological Exam Neurological exam: Present: CN II-XII intact, oriented X3, no focal deficits. Absent: pronater drift, facial droop, speech deficit - Skin Skin exam: Present: dry, intact Internal Medicine: Result - Labs CBC & Chem 7: 11/11/16 04:47 11/11/16 04:47 Labs: Short CBC 11/11/16 Range/Units 04:47 WBC 7.6 (4.3-11.1) K/mcL Hgb 10.1 L (11.5-15.4) g/dL Hct 33.2 L (35.3-44.9) % Plt Count 177 (140-400) K/mcL Neutrophils # 6.3 (1.6-8.9) K/mcL BMP 11/11/16 04:47 Sodium 136 Potassium 4.5 Chloride 103 Carbon Dioxide 26 BUN 25 H Creatinine 1.07 Glucose 123 H Calcium 9.0 - ABG Interpretation ABG results: PT/INR, D-dimer PT 12.0 Seconds (9.4-12.1) 11/08/16 09:13 D-Dimer 1606 ng/mLFEU (0-500) H 11/08/16 09:13 Consult Discharge Plan - Plan Referrals: Albina Bryson MD [Primary Care Provider] - 11/16/16 10:45 am
[2016-11-11] MEDS: Melatonin 3 MG TABLET PO SCH (21:08)
[2016-11-11] MEDS: rOPINIRole 1 MG TABLET PO SCH (21:08)
[2016-11-12] MEDS: Ipratropium/Albuterol Neb 3 ML IH SCH ×2 (03:23→10:12)
[2016-11-12] MEDS: Acetylcysteine 10% 2 ML INHSOL IH SCH ×2 (03:23→10:12)
[2016-11-12 05:40] LABS: Basophils % 0.8 %; Eosinophils # 0.2 K/mcL (0.0-0.6); Eosinophils % 4.1 %; Hematocrit 32.1 % (35.3-44.9); Hemoglobin 10.4 g/dL (11.5-15.4); Immature Granulocytes % 0.4 % (0-4); Lymphocytes # 0.6 K/mcL (0.6-4.6); Lymphocytes % 11.8 %; Mean Corpuscular HGB Conc 32.4 g/dL (31.6-35.5); Mean Corpuscular Hemoglobin 28.3 pg (28.0-33.3); Mean Corpuscular Volume 87.5 fL (83.0-100.0); Mean Platelet Volume 10.7 fL (9.4-12.4); Monocytes # 0.4 K/mcL (0.0-1.3); Monocytes % 7.2 %; Neutrophils # 3.9 K/mcL (1.6-8.9); Platelet Count 170 K/mcL (140-400); Red Blood Count 3.67 M/mcL (3.82-4.97); Red Cell Distribution Width 14.1 % (11.5-14.5); Segmented Neutrophils % 75.7 %
[2016-11-12 05:44] LABS: BUN/Creatinine Ratio 20 (6-26); Blood Urea Nitrogen 20 mg/dL (7-20); Calcium 9.1 mg/dL (8.6-10.8); Carbon Dioxide 27 mEq/L (19-29); Chloride 100 mEq/L (98-109); Glucose 121 mg/dL (70-99); Osmolality,Calculated 286 (280-300); Potassium 3.8 mEq/L (3.5-4.5); Sodium 136 mEq/L (136-145); eGFR For African Americans > 60 (> 60); eGFR For Non-African Americans 53 (> 60)
[2016-11-12] MEDS: *HR* Heparin 5,000 UNIT/ML VIAL SQ SCH (06:08)
[2016-11-12 08:04] VITALS: BP 125/67
[2016-11-12] MEDS: hydroCHLOROthiazide 25 MG TABLET PO SCH (08:52)
[2016-11-12] MEDS: Letrozole 2.5 MG TABLET PO SCH (08:52)
[2016-11-12] MEDS: Diltiazem CD (24hr) 180 MG CAPSULE PO SCH (08:53)
[2016-11-12] MEDS: (Febuxostat [Uloric] 40 MG) PO SCH (08:53)
--- NOTE | 2016-11-12 10:55 | Discharge Summary ---
Date of Encounter: 11/12/16 Time of Encounter: 10:00 - Discharge Diagnosis (1) Right upper lobe pneumonia Priority: Primary Status: Acute Qualifiers: Pneumonia type: due to Pneumococcus Qualified Code(s): J13 - Pneumonia due to Streptococcus pneumoniae (2) Chest pain Priority: Secondary Status: Acute Qualifiers: Chest pain type: chest pain on breathing Qualified Code(s): R07.1 - Chest pain on breathing (3) Liver mass Priority: Secondary Status: Acute (4) Breast cancer Priority: Secondary Status: Acute Qualifiers: Breast location: unspecified site of breast Patient sex: female Laterality: right Qualified Code(s): C50.911 - Malignant neoplasm of unspecified site of right female breast (5) DVT prophylaxis Priority: Secondary Status: Acute (6) Primary peritoneal carcinomatosis Priority: Secondary Status: Acute (7) CHF (congestive heart failure) Priority: Secondary Status: Chronic Qualifiers: Congestive heart failure type: diastolic Congestive heart failure chronicity: chronic Qualified Code(s): I50.32 - Chronic diastolic (congestive ) heart failure - Discharge Medications Prescriptions: GuaiFENesin/Dextromethorphan [Robitussin/Dm] 5 ml PO Q4HR PRN 14 Days PRN Reason: Cough Acetylcysteine 10% 2 ml IH [id number] #14 inhsol Ipratropium/Albuterol Neb [Duoneb] 3 ml IH [id number] #30 inhsol Levofloxacin [Levaquin] 500 mg PO DAILY #7 tablet Home Medications: Albuterol Sulfate [Albuterol Inhaler] 1 puff IH Q4HR PRN 04/29/15 [History] Furosemide [Lasix] 40 mg PO BID PRN 04/29/15 [History] Hydrochlorothiazide 25 mg PO DAILY 04/29/15 [History] Mometasone/Formoterol [Dulera 200 Mcg/5 Mcg Inhaler] 2 puff IH BID 04/29/15 [ History] Letrozole [Femara] 2.5 mg PO DAILY #90 tablet 02/19/16 [Rx] Colchicine [Colcrys] 0.6 mg PO NOW PRN #30 tablet 08/05/16 [Rx] Memantine [Namenda] 5 mg PO HS #30 tablet 09/22/16 [Rx] Febuxostat [Uloric] 40 mg PO DAILY #30 tablet 10/26/16 [Rx] Diltiazem HCl [Diltiazem ER] 180 mg PO QAM 11/08/16 [History] Metoprolol [Lopressor] 50 mg PO BID 11/08/16 [History] Potassium Chloride [Klor-Con 10] 10 meq PO Q48H 11/08/16 [History] Ropinirole HCl [Requip] 0.5 - 1 mg PO HS 11/08/16 [History] Acetylcysteine 10% 2 ml IH [id number] #14 inhsol 11/12/16 [Rx] GuaiFENesin/Dextromethorphan [Robitussin/Dm] 5 ml PO Q4HR PRN 14 Days 11/12/16 [ Rx] Ipratropium/Albuterol Neb [Duoneb] 3 ml IH [id number] #30 inhsol 11/12/16 [Rx] Levofloxacin [Levaquin] 500 mg PO DAILY #7 tablet 11/12/16 [Rx] Allergies/Adverse Reactions: Allergies Penicillins Allergy (Mild, Verified 11/08/16 12:02) Hives, shortness of breath Procedures/tests Complete & Pending: Procedures Performed prior 72 hours Category Date Time Status CT biopsy liver [CT] Routine Cat Scan 11/10/16 Completed Date of admission: 11/08/16 11:19 Primary care physician: Albina Bryson Consults: 11/08/16 14:10 Consult to Occupational Therapy [CONS] Routine Comment: Evaluate, develop and implement POC Consult to Physical Therapy [CONS] Routine Comment: Evaluate, develop and implement POC 11/08/16 14:11 Consult to Oncology [CONS] Routine Consulting Provider: Oncology [facility] Reason for Consult: Metastatic cancer Call Completed: Yes 11/09/16 10:55 Consult to Interventional Radiology [CONS] Routine Consulting Provider: Radiology Interventional [facility] Reason for Consult: Liver mass. Need biopsy Call Completed: Yes Discharging clinician: Sondra Domingo Anticipated date of discharge: 11/12/16 - Patient Status Disposition: Home, Self-Care Condition: Fair Functional capacity at discharge: uses cane/walker Overall status at discharge: patient is progressing back to baseline - Discharge Instructions Follow Up With: Albina Bryson MD [Primary Care Provider] - 11/16/16 10:45 am Forms: ED Satisfaction Letter - Diet and Activity Activity: increase activity as tolerated Diet: low fat, low cholesterol, low salt diet Interval History: Ms. Walden is a 86 year old female with history of BRCA2 mutation, breast cancer and metastatic ovarian cancer who presented to the hospital for an outpatient and scheduled liver biopsy and was directed to the emergency department due to reports of chest pain. The patient had severe sudden onset chest pain early this morning located in the right side of the chest worse with inspiration, acute and sharp in nature. Denies associated fever or chest chills diaphoresis, cough and shortness of breath. A CT scan of the chest revealed right upper lobe pneumonia. Hospital course: Ms. Walden is a 86 year old female admitted for RUL pneumonia. Pt was placed on cardiac monitoring, IV levaquin, and supportive treatment. She has liver mass , for which biopsy was done in hospital. Pt will f/u with her oncologist for the result. Pt has malignancy and high D-Dimer, CTA done in ER, shows no PE. After treatment, pt's condition has improved, no fever, WBC wnl. H/H stable after liver biopsy. Pt is stable to discharge home and continue po abx. Pt was seen and examined today, she is afebrile, AAO x3, mild nonproductive cough, no chest pain, no SOB, in no acute respiratory distress. Vitals are stable, SpO2 97% on 3L [place] Oxygen. Pt has Hx of COPD on home oxygen already. Will d/c home with po abx, continue other home med. F/U with PCP and oncologist as outpatient. - Time Spent with Patient Total time spent providing and/or coordinating discharge services: 40 minutes Greater than 30 minutes - Constitutional Vitals: Temp Pulse Resp BP Pulse Ox 98.0 F 73 22 125/67 97 11/12/16 08:04 11/12/16 08:04 11/12/16 10:15 11/12/16 08:04 11/12/16 10:15 General appearance: Present: A&O X 3, no acute distress, answers questions appropriately - Head Head exam: Present: atraumatic, normocephalic - Eye Eye exam: Present: PERRL, conjuntiva pink, sclera anicteric Pupils: Present: PERRL - Neck Neck exam general surgery: Present: supple, trachea midline. Absent: lymphadenopathy - Respiratory Respiratory exam: Present: CTAB. Absent: accessory muscle use, rales, rhonchi, wheezes - Cardiovascular Cardiovascular exam: Present: RRR, +S1, +S2. Absent: diastolic murmur, gallop, rubs, systolic murmur - GI/Abdominal GI/Abdominal exam: Present: normal bowel sounds, soft, no peritoneal signs. Absent: distended, tenderness - Extremities Exam Extremities exam: Present: warm, radial pulses palpable and symetrical. Absent : calf tenderness, cyanotic, pedal edema - Neurological Exam Neurological exam: Present: CN II-XII intact, oriented X3, no focal deficits. Absent: pronater drift, facial droop, speech deficit - Skin Skin exam: Present: dry, intact
--- NOTE | 2016-11-12 11:23 | Oncology Inp Progress Note ---
Date of Encounter: 11/12/16 Time of Encounter: 07:00 Oncology: Subj Interval history: Patient seen and examined at bedside. Chart reviewed for interval details and appreciate ongoing care by hospital team. Reports feeling considerably better this morning. Respiratory symptoms improved. She had a liver biopsy couple days ago and results is pending at the time of evaluation. She is hoping to be discharged over the weekend. No other new issues. Review of systems: 12 point review of systems as noted above.All other systems are negative: Physical exam: Vital Signs Temp 98.0 F 11/12/16 08:04 Pulse 73 11/12/16 08:04 Resp 22 11/12/16 10:15 BP 125/67 11/12/16 08:04 Pulse Ox 97 11/12/16 10:15 GENERAL: Alert and oriented, lethargic appearing. Mental Status: Affect appropriate for circumstances Skin: No rashes or petechiae. No evidence of skin malignancy Extremities: No edema. No calf swelling or tenderness. No joint deformity. Neurologic: Global weakness but no focal sensorimotor abnormalities. Results: Laboratory Last Values WBC 5.2 K/mcL (4.3-11.1) 11/12/16 04:53 RBC 3.67 M/mcL (3.82-4.97) L 11/12/16 04:53 Hgb 10.4 g/dL (11.5-15.4) L 11/12/16 04:53 Hct 32.1 % (35.3-44.9) L 11/12/16 04:53 MCV 87.5 fL (83.0-100.0) 11/12/16 04:53 MCH 28.3 pg (28.0-33.3) 11/12/16 04:53 MCHC 32.4 g/dL (31.6-35.5) 11/12/16 04:53 RDW 14.1 % (11.5-14.5) 11/12/16 04:53 Plt Count 170 K/mcL (140-400) 11/12/16 04:53 MPV 10.7 fL (9.4-12.4) 11/12/16 04:53 Immature Gran % 0.4 % (0-4) 11/12/16 04:53 Seg Neutrophils % 75.7 % 11/12/16 04:53 Lymphocytes % 11.8 % 11/12/16 04:53 Monocytes % 7.2 % 11/12/16 04:53 Eosinophils % 4.1 % 11/12/16 04:53 Basophils % 0.8 % 11/12/16 04:53 Neutrophils # 3.9 K/mcL (1.6-8.9) 11/12/16 04:53 Lymphocytes # 0.6 K/mcL (0.6-4.6) 11/12/16 04:53 Monocytes # 0.4 K/mcL (0.0-1.3) 11/12/16 04:53 Eosinophils # 0.2 K/mcL (0.0-0.6) 11/12/16 04:53 Basophils # 0.0 K/mcL (0.0-0.2) 11/12/16 04:53 PT 12.0 Seconds (9.4-12.1) 11/08/16 09:13 INR 1.1 11/08/16 09:13 APTT 30.4 Seconds (26.0-36.0) 11/08/16 09:13 D-Dimer 1606 ng/mLFEU (0-500) H 11/08/16 09:13 Sodium 136 mEq/L (136-145) 11/12/16 04:53 Potassium 3.8 mEq/L (3.5-4.5) 11/12/16 04:53 Chloride 100 mEq/L (98-109) 11/12/16 04:53 Carbon Dioxide 27 mEq/L (19-29) 11/12/16 04:53 BUN 20 mg/dL (7-20) 11/12/16 04:53 Creatinine 0.99 mg/dL (0.57-1.11) 11/12/16 04:53 Est GFR ( Amer) > 60 (> 60) 11/12/16 04:53 Est GFR (Non-Af Amer) 53 (> 60) L 11/12/16 04:53 BUN/Creatinine Ratio 20 (6-26) 11/12/16 04:53 Glucose 121 mg/dL (70-99) H 11/12/16 04:53 Calculated Osmolality 286 (280-300) 11/12/16 04:53 Calcium 9.1 mg/dL (8.6-10.8) 11/12/16 04:53 Troponin I 0.01 ng/mL (0-0.03) 11/10/16 04:27 B-Natriuretic Peptide 167 pg/mL (0-100) H 11/08/16 09:13 Radiographic studies: I personally reviewed and interpreted patient's most recent imaging studies dated 11/08-. I discussed the findings with the patient today. Chest X-Ray 11/08/16 09:00 IMPRESSION: Right mid lung airspace opacity corresponds to an area of scarring identified on recent CT chest. No new focal consolidation. Left-sided MediPort catheter tip projects over the distal left brachiocephalic vein. D/ / 11/08/2016 09:56:18 Leigh Branch MD / Ivana Rousseau Interpreting Provider: Leigh Branch MD Abdomen/Pelvis CTA 11/08/16 09:04 IMPRESSION: 1. New right upper lobe infiltrate compared to CT eleven days ago, consistent with a pneumonia. Otherwise stable CT of the chest. 2. No acute findings within the abdomen or pelvis. Redemonstration of presumed hepatic metastatic disease as well as omental caking consistent with carcinomatosis. 3. Severe aortoiliac plaque disease. 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 4. No evidence of pulmonary embolic disease. D/ / 11/08/2016 10:45:13 Pete Ortega MD / bcarter Interpreting Provider: Pete Ortega MD Chest CTA 11/08/16 09:04 IMPRESSION: 1. New right upper lobe infiltrate compared to CT eleven days ago, consistent with a pneumonia. Otherwise stable CT of the chest. 2. No acute findings within the abdomen or pelvis. Redemonstration of presumed hepatic metastatic disease as well as omental caking consistent with carcinomatosis. 3. Severe aortoiliac plaque disease. 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 4. No evidence of pulmonary embolic disease. D/ / 11/08/2016 10:45:13 Pete Ortega MD / [email or web address] Interpreting Provider: Pete Ortega MD Liver Biopsy CT 11/10/16 00:00 IMPRESSION: Successful CT guided core biopsy of the right hepatic lobe as described above. D/ / Pete Merrill MD / Pete Merrill MD Interpreting Provider: Pete Merrill MD Impression/recommendations: Pneumonia: Improving with current measures for hospital team. Input appreciated. Anemia:Stable. No intervention needed for current counts. Breast cancer: Stable. We'll continue monitoring. Primary peritoneal carcinomatosis: Stable. We will await results of recent liver biopsy which may be related to underlying primary peritoneal carcinomatosis. If she has confirmed progression on current regimen, options for management would include chemotherapy versus part inhibitor given her BRCA2 positive status. We'll follow the patient along side you during this hospitalization but please do not hesitate to call regarding interval hematologic questions as they arise. Thank you for your excellent ongoing care for allowing us to see her while in- house. This report was created using voice recognition software and may contain errors. It was signed but not edited to expedite communication. - Constitutional Vitals: Vital Signs Resp Pulse Ox 11/12/16 10:15 22 97 Intake and Output 11/12/16 11/12/16 11/12/16 00:59 08:59 16:59 Other: Meal Breakfast Percent of Meal Consumed 100% Oncology: Obj Data - Labs CBC & Chem 7: 11/12/16 04:53 11/12/16 04:53 - ABG Interpretation ABG results: PT/INR, D-dimer PT 12.0 Seconds (9.4-12.1) 11/08/16 09:13 D-Dimer 1606 ng/mLFEU (0-500) H 11/08/16 09:13 Consult Discharge Plan - Plan Instructions: Levofloxacin (By mouth), Ipratropium/Albuterol (By breathing), Acetylcysteine (By breathing), Dextromethorphan/Guaifenesin/Phenylephrine (By mouth) Referrals: Albina Bryson MD [Primary Care Provider] - 11/16/16 10:45 am Prescriptions: Acetylcysteine 10% 2 ml IH [id number] #14 inhsol GuaiFENesin/Dextromethorphan [Robitussin/Dm] 5 ml PO Q4HR PRN 14 Days PRN Reason: Cough Ipratropium/Albuterol Neb [Duoneb] 3 ml IH [id number] #30 inhsol Levofloxacin [Levaquin] 500 mg PO DAILY #7 tablet
[2016-11-12] MEDS ORDERED: levoFLOXacin 750 MG TABLET PO SCH (13:00)
== END 2016-11-12 14:33 | disposition home or self-care (01) | DRG 190 ==
LOC: 3BNU 08:58 → EMEROO 08:58 → SUATTDRO 11:19 → 3BNU 13:28
PROVIDERS: ADMIT Nurse Practitioner Family; ATTEND Internal Medicine
PROC: IRLIVER (2016-11-10 12:00)

== ENCOUNTER 2018-01-19 08:28 | Inpatient (IN) ==
[2018-01-19] MEDS ORDERED: 0.9 % Sodium Chloride 1,000 ML IVC ONE ×2 (08:32→09:27)
[2018-01-19] MEDS ORDERED: Isovue-370 500 ML INFUS..BTL IV ONE (08:42)
--- NOTE | 2018-01-19 08:48 | Emergency Department Note ---
Disposition Clinical Impression: Carcinomatosis, Abdominal pain Disposition: Admitted As Inpatient Condition: Fair Referrals: Albina Bryson MD [Primary Care Provider] - Forms: ED Satisfaction Letter Time of Disposition: 12:19 GI Bleed HPI - General Chief complaint: ED GI Bleed Stated complaint: rectal bleeding,diarrhea,fever Time Seen by Provider: 01/19/18 08:31 Nursing Notes Reviewed: Yes Vital Signs Reviewed: Yes - History of Present Illness HPI Narrative: Mrs. Walden, an 87yo female, presents from home with daughter bedside for evaluation of a 3 day history of reported GI bleeding. Described as dark brown stools. Patient is on iron supplements. She was seen and evaluated by her primary care provider yesterday who prescribed an antibiotic unknown to the patient (has taken 1 dose) with no specific diagnosis after PCP evaluation. Patient has diffuse abdominal pain most prominent in the right lower quadrant. Was febrile yesterday to 103. Associated with weakness, shortness of breath. PMH: Current active of ovarian cancer with peritoneal metastasis on hormonal blockers; patient refused chemo therapy, radiation therapy, surgery. History of breast cancer. Abdominal surgical history: remote appendectomy No history of GERD or PPI use. No recent antibiotics except one dose mentioned above. Oncologist: Dr. Sam Antiplatelet: Aspirin 81 daily. Aanticoagulant: None ROS: Positive: As above Negative:No diarrhea, constipation, or vomiting. No unusual back pains. No bright red stools or cold black tarry stools. No falls or lightheadedness. - Related Data Home Medications Medication Instructions Recorded Confirmed Albuterol Sulfate [Albuterol 1 puff IH Q4HR PRN 04/29/15 01/19/18 Inhaler] Furosemide [Lasix] 40 mg PO BID PRN 04/29/15 01/19/18 Mometasone/Formoterol [Dulera 200 2 puff IH BID 04/29/15 01/19/18 Mcg/5 Mcg Inhaler] Potassium Chloride [Klor-Con 10] 10 meq PO Q48H 11/08/16 01/19/18 Aspirin [Lo-Dose Aspirin EC] 81 mg PO DAILY 06/01/17 01/19/18 Calcium Carbonate [Calcium] 500 mg PO DAILY 06/01/17 01/19/18 Fosinopril Sodium 20 mg PO BID 06/01/17 01/19/18 Ipratropium/Albuterol Neb [Duoneb] 3 ml IH [id number] PRN 06/01/17 01/19/18 Diltiazem CD (24hr) [Cardizem CD] 180 mg PO DAILY 01/19/18 01/19/18 Meloxicam [Meloxicam] 15 mg PO DAILY 01/19/18 01/19/18 Metoprolol Tartrate [Metoprolol 50 mg PO BID 01/19/18 01/19/18 Tartrate] hydrOXYzine HCl [Hydroxyzine HCl] 1 - 2 tab PO HS PRN 01/19/18 01/19/18 hydroCHLOROthiazide 25 mg PO DAILY 01/19/18 01/19/18 [Hydrochlorothiazide] Previous Rx's Medication Instructions Recorded Febuxostat [Uloric] 40 mg PO DAILY #30 tablet 10/26/16 Memantine [Namenda] 5 mg PO DAILY #30 tablet 11/11/17 Ascorbate Calcium [Vitamin C] 500 mg PO DAILY #30 tablet 12/15/17 Ferrous Sulfate [Iron] 325 mg PO DAILY #30 tablet 12/15/17 Letrozole [Femara] 2.5 mg PO DAILY #90 tablet 01/11/18 Allergies Allergy/AdvReac Type Severity Reaction Status Date / Time Penicillins Allergy Mild Hives, Verified 01/19/18 09:58 itch, shortness of breath Bisphosphonates AdvReac Unconscious Verified 01/19/18 09:58 All systems ED: reviewed and negative except as stated. Review of Systems: As Per HPI Past Medical History - Past Medical History Medical history: Reports: asthma, cancer, CHF, COPD, hypertension Surgical history: Reports: appendectomy, breast surgery, cancer surgery, cholecystectomy, other Psychiatric history: Reports: no psych history - Social History Smoking Status: Former smoker Smokeless Tobacco Status: No Alcohol use: Reports: none Drug use: Reports: none Physical Exam Vital Signs Reviewed General: Patient is alert, oriented, and in mild to moderate distress-tachypneic , tachycardic. Afebrile on intake. Head: atraumatic, normocephalic Eye: normal appearance, no scleral icterus, no conjunctival injection ENT: mucous membranes moist, normal external ear exam Neck: normal inspection, trachea midline, full ROM Chest: normal inspection, symmetric chest rise Respiratory: Poor respiratory effort. Bilateral breath sounds are clear without wheezing, crackles, or rhonchi. Cardiovascular: Tachycardic rate and regular rhythm. No clicks, rubs, gallops, or murmors. Normal heart sounds. Abdomen: Bowel sounds present normoactive x-4 quadrants. Abdomen is soft, nondistended, diffuse moderate tenderness most prominent in the right lower quadrant. No guarding or rebound. Unable to assess organomegaly secondary to patient's abdominal tenderness. Musculoskeletal: Spontaneously moving all extremities. Skin: Pale, warm, dry, intact. Neuro: Alert and oriented x4. Sensation light touch intact. Psych: Patient's affect is appropriate for situation. - General General appearance: alert, in no apparent distress Course Course Narrative: EKG dated 01/19/10 at 08:44 troponin as sinus tachycardia with a rate of 102. Normal intervals. Normal axis. Nonspecific ST-T changes. Compared to EKG dated 11/08/2016 showing no acute ischemic changes. Patient has a complicated medical history. Her diffuse abdominal pain could in part be from her peritoneal metastasis however patient notes that it is worse than usual. Additionally, she was reporting febrile home. She initially refused CT imaging however, after discussion, she was agreeable. Bedside FOBT negative. On further questioning, patient's daughter notes she only saw several dark spots on the patient's underwear. Patient is afebrile, hypotensive and tachycardic on intake. Responsive to fluids. She is not in septic shock. Serum hematology shows no leukocytosis. She does have anemia to 10.3 however this is above her baseline. Serum chemistry shows normal electrolytes. Of concern, is acute kidney injury. We will hold on IV contrast for CT imaging and provide IV fluids. Patient has elevated lactic acid of 3.1. This could be hypoperfusion given her hypotension. Receiving IV fluids. Type lactate ordered. Troponin is slightly elevated. Suspect demand ischemia. Given negative FOBT, aspirin given. 10:[address] [facility] Ritchie (phone call) Extraluminal gas with air pockets throughout abdomen. Loculated fluid near splenic flexure. multiple diverticuli. more omental thickening progressive from CT in Sep. I discussed the above the patient and her daughter at bedside they are agreeable to consultation with general surgery. Discussed the patient with Dr. Luevano who came in to evaluate the patient. Clinically suspects carcinomatosis. After discussion between him, the patient, and the patient's daughter will pursue medical management at this time. Nothing by mouth status now. Cipro Flagyl. Continued IV fluids. He recommends NAIL KEGGER Dilaudid for pain control the floor. I discussed the patient with the admitting hospitalist who agrees to accept the patient for continued evaluation and management with surgery consulting. Vital Signs Temperature 98.2 F 01/19/18 08:29 Pulse Rate 104 01/19/18 08:29 Respiratory Rate 22 01/19/18 08:29 Blood Pressure 71/37 01/19/18 08:29 O2 Sat by Pulse Oximetry 96 01/19/18 08:29 Temperature 98.2 F 01/19/18 08:29 Pulse Rate 99 01/19/18 10:20 Respiratory Rate 30 01/19/18 10:20 Blood Pressure 105/54 01/19/18 10:20 O2 Sat by Pulse Oximetry 94 01/19/18 10:20 Oxygen Delivery Oxygen Delivery Nasal Cannula GI Bleed - Lab Data Result diagrams: 01/19/18 08:44 01/19/18 08:44 Lab Results 01/19/18 01/19/18 01/19/18 Range/Units 08:44 08:44 08:44 WBC 9.0 (4.3-11.1) K/mcL RBC 3.67 L (3.82-4.97) M/mcL Hgb 10.3 L (11.5-15.4) g/dL Hct 32.6 L (35.3-44.9) % MCV 88.8 (83.0-100.0) fL MCH 28.1 (28.0-33.3) pg MCHC 31.6 (31.6-35.5) g/dL RDW 15.5 H (11.5-14.5) % Plt Count 217 (140-400) K/mcL MPV 10.8 (9.4-12.4) fL Immature Gran % Test Not Performed Seg Neutrophils % 59.0 % Band Neutrophils % 19.0 H (0-4) % Lymphocytes % 17.0 % Monocytes % 5.0 % Eosinophils % Test Not Performed Basophils % Test Not Performed Neutrophils # 7.0 (1.6-8.9) K/mcL Lymphocytes # 1.5 (0.6-4.6) K/mcL Monocytes # 0.5 (0.0-1.3) K/mcL Eosinophils # Test Not Performed Basophils # Test Not Performed Platelet Estimate Normal (Normal) Immature Plt Fraction 4.2 (1.1-6.1) % Hypochromasia Present A (Not Present) PT 15.7 H (9.4-12.1) Seconds INR 1.4 APTT 23.8 L (26.0-36.0) Seconds Sodium 136 (136-145) mEq/L Potassium 4.1 (3.5-5.1) mEq/L Chloride 103 (98-107) mEq/L Carbon Dioxide 23 (23-29) mEq/L BUN 30 H (8-23) mg/dL Creatinine 2.02 H (0.60-1.20) mg/dL Est GFR ( Amer) 28 L (> 60) Est GFR (Non-Af Amer) 23 L (> 60) BUN/Creatinine Ratio 15 (6-26) Glucose 93 (70-105) mg/dL Calculated Osmolality 288 (280-300) Lactic Acid (0.5-2.2) mmol/L Calcium 8.4 L (8.6-10.3) mg/dL Troponin I 0.04 H* (< 0.04) ng/mL Lipase 3 L (11-82) Units/L Blood Type Antibody Screen 01/19/18 01/19/18 Range/Units 08:44 08:44 WBC (4.3-11.1) K/mcL RBC (3.82-4.97) M/mcL Hgb (11.5-15.4) g/dL Hct (35.3-44.9) % MCV (83.0-100.0) fL MCH (28.0-33.3) pg MCHC (31.6-35.5) g/dL RDW (11.5-14.5) % Plt Count (140-400) K/mcL MPV (9.4-12.4) fL Immature Gran % Seg Neutrophils % % Band Neutrophils % (0-4) % Lymphocytes % % Monocytes % % Eosinophils % Basophils % Neutrophils # (1.6-8.9) K/mcL Lymphocytes # (0.6-4.6) K/mcL Monocytes # (0.0-1.3) K/mcL Eosinophils # Basophils # Platelet Estimate (Normal) Immature Plt Fraction (1.1-6.1) % Hypochromasia (Not Present) PT (9.4-12.1) Seconds INR APTT (26.0-36.0) Seconds Sodium (136-145) mEq/L Potassium (3.5-5.1) mEq/L Chloride (98-107) mEq/L Carbon Dioxide (23-29) mEq/L BUN (8-23) mg/dL Creatinine (0.60-1.20) mg/dL Est GFR ( Amer) (> 60) Est GFR (Non-Af Amer) (> 60) BUN/Creatinine Ratio (6-26) Glucose (70-105) mg/dL Calculated Osmolality (280-300) Lactic Acid 3.1 H (0.5-2.2) mmol/L Calcium (8.6-10.3) mg/dL Troponin I (< 0.04) ng/mL Lipase (11-82) Units/L Blood Type O NEGATIVE Antibody Screen POSITIVE Attestation Statement - Attestation Attestation: I, Low Bustos DO, examined this patient [id number] and my medical decision-making was reviewed with Dr. Paul Meng, Resident Physician. I agree with the documented findings, disposition and treatment plan as described except to the extent set forth below. Please see my progress notes for details.
[2018-01-19 09:03] LABS: Hematocrit 32.6 % (35.3-44.9); Hemoglobin 10.3 g/dL (11.5-15.4); Immature Platelets 4.2 % (1.1-6.1); Mean Corpuscular HGB Conc 31.6 g/dL (31.6-35.5); Mean Corpuscular Hemoglobin 28.1 pg (28.0-33.3); Mean Corpuscular Volume 88.8 fL (83.0-100.0); Mean Platelet Volume 10.8 fL (9.4-12.4); Platelet Count 217 K/mcL (140-400); Red Blood Count 3.67 M/mcL (3.82-4.97); Red Cell Distribution Width 15.5 % (11.5-14.5)
[2018-01-19 09:07] LABS: INR 1.4; Prothrombin Time 15.7 Seconds (9.4-12.1)
[2018-01-19 09:09] LABS: Activated Partial Thrombo Time 23.8 Seconds (26.0-36.0)
[2018-01-19 09:18] LABS: Calcium 8.4 mg/dL (8.6-10.3); Potassium 4.1 mEq/L (3.5-5.1)
[2018-01-19] MEDS ORDERED: *HR* FentaNYL (PF) 100 MCG/2 ML VIAL IVP ONE (09:24)
[2018-01-19 09:27] LABS: Troponin I 0.04 ng/mL (< 0.04)
[2018-01-19 09:29] LABS: Lymphocytes # 1.5 K/mcL (0.6-4.6); Monocytes # 0.5 K/mcL (0.0-1.3); Platelet Estimate Normal (Normal)
[2018-01-19 09:30] LABS: Hypochromasia Present (Not Present)
[2018-01-19] MEDS ORDERED: Aspirin 81 MG TAB.CHEW PO STA (09:46)
--- NOTE | 2018-01-19 09:46 | Emergency Department Note ---
Disposition Clinical Impression: Carcinomatosis, Abdominal pain, Pneumoperitoneum Disposition: Admitted As Inpatient Condition: Fair Referrals: Albina Bryson MD [Primary Care Provider] - Forms: ED Satisfaction Letter Time of Disposition: 12:22 General Adult HPI - General Chief complaint: ED GI Bleed Stated complaint: rectal bleeding,diarrhea,fever Time Seen by Provider: 01/19/18 08:31 - History of Present Illness Pain Scale: 9 - Related Data Home Medications Medication Instructions Recorded Confirmed Albuterol Sulfate [Albuterol 1 puff IH Q4HR PRN 04/29/15 12/15/17 Inhaler] Furosemide [Lasix] 40 mg PO BID PRN 04/29/15 12/15/17 Mometasone/Formoterol [Dulera 200 2 puff IH BID 04/29/15 12/15/17 Mcg/5 Mcg Inhaler] Potassium Chloride [Klor-Con 10] 10 meq PO Q48H 11/08/16 12/15/17 Aspirin [Lo-Dose Aspirin EC] 81 mg PO DAILY 06/01/17 12/15/17 Calcium Carbonate [Calcium] 500 mg PO DAILY 06/01/17 12/15/17 Fosinopril Sodium 20 mg PO BID 06/01/17 12/15/17 Ipratropium/Albuterol Neb [Duoneb] 3 ml IH [id number] PRN 06/01/17 12/15/17 Diltiazem CD (24hr) [Cardizem CD] 180 mg PO DAILY 01/19/18 01/19/18 Meloxicam [Meloxicam] 15 mg PO DAILY 01/19/18 01/19/18 Metoprolol Tartrate [Metoprolol 50 mg PO BID 01/19/18 01/19/18 Tartrate] hydrOXYzine HCl [Hydroxyzine HCl] 1 - 2 tab PO HS PRN 01/19/18 01/19/18 hydroCHLOROthiazide 25 mg PO DAILY 01/19/18 01/19/18 [Hydrochlorothiazide] Previous Rx's Medication Instructions Recorded Febuxostat [Uloric] 40 mg PO DAILY #30 tablet 10/26/16 Memantine [Namenda] 5 mg PO DAILY #30 tablet 11/11/17 Ascorbate Calcium [Vitamin C] 500 mg PO DAILY #30 tablet 12/15/17 Ferrous Sulfate [Iron] 325 mg PO DAILY #30 tablet 12/15/17 Letrozole [Femara] 2.5 mg PO DAILY #90 tablet 01/11/18 Allergies Allergy/AdvReac Type Severity Reaction Status Date / Time Penicillins Allergy Mild Hives, Verified 01/19/18 09:58 itch, shortness of breath Bisphosphonates AdvReac Unconscious Verified 01/19/18 09:58 Past Medical History - Past Medical History Medical history: Reports: asthma, cancer, CHF, COPD, hypertension Surgical history: Reports: appendectomy, breast surgery, cancer surgery, cholecystectomy, other Psychiatric history: Reports: no psych history - Social History Smoking Status: Former smoker Smokeless Tobacco Status: No Alcohol use: Reports: none Drug use: Reports: none Physical Exam - General General appearance: alert, in no apparent distress Course Vital Signs Temperature 98.2 F 01/19/18 08:29 Pulse Rate 104 01/19/18 08:29 Respiratory Rate 22 01/19/18 08:29 Blood Pressure 71/37 01/19/18 08:29 O2 Sat by Pulse Oximetry 96 01/19/18 08:29 Temperature 98.2 F 01/19/18 08:29 Pulse Rate 101 01/19/18 11:42 Respiratory Rate 25 01/19/18 11:42 Blood Pressure 99/71 01/19/18 11:42 O2 Sat by Pulse Oximetry 97 01/19/18 11:42 Oxygen Delivery Oxygen Delivery Nasal Cannula Medical Decision Making - Lab Data Result diagrams: 01/19/18 08:44 01/19/18 08:44 Lab Results 01/19/18 01/19/18 01/19/18 Range/Units 08:43 08:44 08:44 WBC 9.0 (4.3-11.1) K/mcL RBC 3.67 L (3.82-4.97) M/mcL Hgb 10.3 L (11.5-15.4) g/dL Hct 32.6 L (35.3-44.9) % MCV 88.8 (83.0-100.0) fL MCH 28.1 (28.0-33.3) pg MCHC 31.6 (31.6-35.5) g/dL RDW 15.5 H (11.5-14.5) % Plt Count 217 (140-400) K/mcL MPV 10.8 (9.4-12.4) fL Immature Gran % Test Not Performed Seg Neutrophils % 59.0 % Band Neutrophils % 19.0 H (0-4) % Lymphocytes % 17.0 % Monocytes % 5.0 % Eosinophils % Test Not Performed Basophils % Test Not Performed Neutrophils # 7.0 (1.6-8.9) K/mcL Lymphocytes # 1.5 (0.6-4.6) K/mcL Monocytes # 0.5 (0.0-1.3) K/mcL Eosinophils # Test Not Performed Basophils # Test Not Performed Platelet Estimate Normal (Normal) Immature Plt Fraction 4.2 (1.1-6.1) % Hypochromasia Present A (Not Present) PT 15.7 H (9.4-12.1) Seconds INR 1.4 APTT 23.8 L (26.0-36.0) Seconds Sodium (136-145) mEq/L Potassium (3.5-5.1) mEq/L Chloride (98-107) mEq/L Carbon Dioxide (23-29) mEq/L BUN (8-23) mg/dL Creatinine (0.60-1.20) mg/dL Est GFR ( Amer) (> 60) Est GFR (Non-Af Amer) (> 60) BUN/Creatinine Ratio (6-26) Glucose (70-105) mg/dL Calculated Osmolality (280-300) Lactic Acid (0.5-2.2) mmol/L Calcium (8.6-10.3) mg/dL Troponin I (< 0.04) ng/mL B-Natriuretic Peptide 773 H (Less than 100) pg/mL Lipase (11-82) Units/L Blood Type Antibody Screen Antibody Identification 01/19/18 01/19/18 01/19/18 Range/Units 08:44 08:44 08:44 WBC (4.3-11.1) K/mcL RBC (3.82-4.97) M/mcL Hgb (11.5-15.4) g/dL Hct (35.3-44.9) % MCV (83.0-100.0) fL MCH (28.0-33.3) pg MCHC (31.6-35.5) g/dL RDW (11.5-14.5) % Plt Count (140-400) K/mcL MPV (9.4-12.4) fL Immature Gran % Seg Neutrophils % % Band Neutrophils % (0-4) % Lymphocytes % % Monocytes % % Eosinophils % Basophils % Neutrophils # (1.6-8.9) K/mcL Lymphocytes # (0.6-4.6) K/mcL Monocytes # (0.0-1.3) K/mcL Eosinophils # Basophils # Platelet Estimate (Normal) Immature Plt Fraction (1.1-6.1) % Hypochromasia (Not Present) PT (9.4-12.1) Seconds INR APTT (26.0-36.0) Seconds Sodium 136 (136-145) mEq/L Potassium 4.1 (3.5-5.1) mEq/L Chloride 103 (98-107) mEq/L Carbon Dioxide 23 (23-29) mEq/L BUN 30 H (8-23) mg/dL Creatinine 2.02 H (0.60-1.20) mg/dL Est GFR ( Amer) 28 L (> 60) Est GFR (Non-Af Amer) 23 L (> 60) BUN/Creatinine Ratio 15 (6-26) Glucose 93 (70-105) mg/dL Calculated Osmolality 288 (280-300) Lactic Acid 3.1 H (0.5-2.2) mmol/L Calcium 8.4 L (8.6-10.3) mg/dL Troponin I 0.04 H* (< 0.04) ng/mL B-Natriuretic Peptide (Less than 100) pg/mL Lipase 3 L (11-82) Units/L Blood Type O NEGATIVE Antibody Screen POSITIVE Antibody Identification Anti-D Attestation Statement - Attestation Attestation: I, Low Bustos DO, examined this patient [id number] and my medical decision-making was reviewed with (Dr. Paul Meng, Resident Physician. I agree with the documented findings, disposition and treatment plan as described except to the extent set forth below. Please see my progress notes for details. 87-year-old female presents to the emergency room with complaint of generalized malaise, abdominal pain, dark colored stool. 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 According to them at this point she does not have any metastasis seen anywhere else in her body. Patient denies any trauma or injury. She does not have any chest pain fevers chills nausea vomiting or diarrhea here today. Denies any headache or vision change. She did have a temperature up to 103 at home yesterday. Patient denies any sick contacts or travel outside the country. She is currently not participating in chemotherapy or radiation therapy. She is under the care of Dr. yañez. Patient has a coarse sounding cough during my physical exam. Head is atraumatic mucous membranes are dry oropharynx is patent trachea is midline. Lungs are clear to auscultation does appear to be upper airway coarse crackles are referred. Heart is regular. Patient was initially tachycardic. She also was borderline to Get 22. Patient's initial blood pressure was hypotensive. 2 large-bore IVs were established and 2 L of fluid to be given. Patient is concerning for possible septic presentation. The etiology of the infection at this point is unclear. Patient does not have any focal source and has no fever here today. Patient will be provided with fluid resuscitation. Vital signs to be stabilized. CT imaging of the chest and abdomen will be ordered. Chest x-ray was completed yesterday at the PCPs office and this imaging was reviewed there is no acute signs of infectious etiology at that point. Urinalysis is still pending as well. Disposition pending the full workup and treatment course. Patient will most likely require admission secondary to the history of cancer as well as a presenting issues with hypotension and tachycardia. Patient is otherwise clinically stable mentating appropriately showing no acute signs of trauma or injury otherwise. Patient family is at the bedside and are comfortable with the plan understand the recommendations. Patient also understands this as well. Patient is otherwise clinically stable. See detailed documentation of the physical exam, medical intervention, medical decision-making and disposition in the resident physician's note. No critical care applied to patient's treatment course at this time. 0945 Patient has elevated lactic acid of 3.1. Troponin is 0.04. Creatinine is 2.02. These are all new findings at this time. Patient is responsive to fluids at this point her heart rate is down to 94 blood pressure is 111/80. Patient's symptoms are getting better with the fluid resuscitation but she still has persistent abdominal pain. Antibiotics will be held at this point considering she does not have a blood cell count does not have a fever. We do not have a focal source of this time. CT imaging of the chest and abdomen is still pending. Patient will be given an aspirin at this point. She does not have any acute changes in her hemoglobin at this time. Disposition will most likely be admission for multifactorial presentation this point. Her Hemoccult testing in the emergency room was negative. 1045 Patient is pain is better at this time. Abdomen still appears to be tender but not peritoneal at this point. CT imaging was completed and the results were called to us by Dr. dangelo. Patient has free air in the abdomen concerning for perforation. Patient was will be started on empiric antibiotics and consultation with surgery will be completed. Disposition and in the full workup and evaluation. [address] smith has evaluated the patient the bedside and made recommendations. These will be put into the charting and in the order system at this time. The hospitalist was informed of the recommendations as well as evaluation in a formal consult was placed. Patient does have potential critical illness and terminal illness secondary to what appears to be ruptured diverticuli with. In the abdomen versus pneumocarcinomatosis. Patient will be admitted for definitive management. No critical care applied to the patient's treatment course at this time.
[2018-01-19] MEDS ORDERED: Aztreonam 2,000 MG in Water for inj. (sterile) 20 ML 20 ML IVP STA (10:55)
[2018-01-19] MEDS ORDERED: MetroNIDAZOLE 500 MG/100 ML 500 MG/100 ML BAG IVPB ONE (11:04)
--- NOTE | 2018-01-19 12:57 | General Surgery Consult Note ---
Date of Encounter: 01/19/18 Time of Encounter: 11:50 History of Present Illness Consult date: 01/19/18 Reason for consult: other (Radiologic evidence of pneumoperitoneum) Requesting physician: Paul Meng History of present illness: 87-year-old female referred for further surgical evaluation after presenting to [facility] ED with abdominal pain and radiologic evidence of pneumoperitoneum consistent with a perforated viscus. The initial reporting symptoms included a 3 day history of dark stools accompanying her diffuse abdominal pain. There is reported fever of 103 the day before presenting to the emergency department. The patient's PCP prescribed an unspecified antibiotic. Evaluation in the ED included laboratories CT of the abdomen/pelvis. Laboratories notable for white count 9.0 with hemoglobin 10.3 and hematocrit 32.6. Platelet count 217,000. PT 15.7, INR 1.4. Electrolytes were normal, BUN 30, creatinine 2.02 (review of when necessary, creatinine back to September 2017 show stable persistent elevation of the BUN ranging from 28-36; creatinine is considerably higher, previous range 1.29-1.58) review of H&H show stable anemia. Globin ranging from 9.4-11.8; hematocrit ranging from 29.3-36.6. CT of the abdomen and pelvis was reviewed with [facility]. Findings include: Free fluids in the pelvis and adjacent to the left side of the colon; extraluminal peritoneal gas consistent with perforated viscus; extensive diverticulosis; thickened, nodular omentum consistent with carcinomatosis. Comparison of the current CT to prior CT, September 2017, demonstrated progression of this omental caking. Otherwise, the only new findings is the free intraperitoneal air. Past medical history: Asthma; CHF; Hypertension, ovarian carcinoma which the patient has opted not to treat; right breast cancer stage IIIc, 2014; 12 of 18 lymph nodes were positive for malignancy Surgical history: Right modified radical mastectomy, 2014; appendectomy; cholecystectomy; right carpal tunnel release 05/2017; back surgery 2001; bladder surgery 1975 Allergies: Penicillin Medications: Albuterol 1 puff every 4 hours when necessary Furosemide 40 mg by mouth twice a day as needed Mometasone/formoterol 2 puffs twice a day Potassium 10 mEq by mouth every 48 hours Aspirin 81 mg by mouth daily Calcium carbonate 500 mg by mouth daily Fosinopril 20 mg by mouth twice a day Ipratropium/albuterol aerosol every 6 hours as needed Diltiazem 180 mg by mouth daily Meloxicam 15 mg by mouth daily Metoprolol 50 mg by mouth twice a day Hydroxyzine 1-2 tablets daily at bedtime as needed Hydrochlorothiazide 25 mg by mouth daily Social history: ; Patient admits to tobacco use approximately 1 pack daily for 30 years; she quit 30 years ago; she does not currently consume any alcohol though did as a younger woman; she does not use illicit drugs. Physical examination: Age-appropriate woman resting comfortably in her ED bed. She did not appear to be in acute distress, but she was lying very quietly. The patient was afebrile, 98.2; heart rate 104, respiratory rate 22; blood pressure 99/71 - 105/54. On initial presentation 71/37. Lungs: Clear though inspiratory effort limited by the patient's abdominal pain. The right breast is surgically absent. The right chest wall demonstrated no nodularity. Cardiac: Tachycardic to 101, no appreciable murmurs Abdomen: Diffusely tender but most pronounced in the right upper quadrant. Involuntary guarding was detected. Absent bowel sounds. Extremities no obvious clubbing, cyanosis, edema. Impression: 87-year-old female referred for surgical evaluation after presenting to the emergency department with new onset abdominal pain. The patient was found to have a pneumoperitoneum. This is possibly due to perforated diverticular disease versus progression of her ovarian carcinoma. The ovarian carcinoma appears to be diffusely involving the peritoneal cavity is evident by the thickened, nodular omentum strongly suggestive of diffuse peritoneal carcinomatosis. Lengthy discussion was completed with the patient and her daughter, who was at bedside during my examination /evaluation. Treatment options include exploratory celiotomy with resection of the perforated bowel and end colostomy versus medical management with IV antibiotics and pain control. As the patient has declined treatment of her ovarian cancer, she indicates a preference to defer surgery in favor of IV ATB and pain control. The results of my examination of the patient, review of labs and X-rays, and subsequent discussion with the patient and her family were discussed with the ED physicians, Dr Bustos and Dr Meng. Recommendations include consultation with Palliative Care/Hospice. Past Med Surg Social Fam HX - Past Medical History Medical history: asthma, cancer, CHF, COPD, hypertension Psychiatric history: no psych history - Past Surgical History Surgical History: appendectomy, breast surgery, cancer surgery, cholecystectomy , other - Social History Smoking Status: Former smoker Smokeless Tobacco Status: No Alcohol use: none Drug use: none - Family History Mother Living Status: Hx Family Cardiac Disorders: Yes Hx Family Respiratory Disorders: No Hx Family Cancer: No Hx Family Endocrine Disorder: Yes (DM) Hx Family Neurologic Disorders: No Medications and Allergies Albuterol Sulfate [Albuterol Inhaler] 1 puff IH Q4HR PRN 04/29/15 [History] Furosemide [Lasix] 40 mg PO BID PRN 04/29/15 [History] Mometasone/Formoterol [Dulera 200 Mcg/5 Mcg Inhaler] 2 puff IH BID 04/29/15 [ History] Febuxostat [Uloric] 40 mg PO DAILY #30 tablet 10/26/16 [Rx] Potassium Chloride [Klor-Con 10] 10 meq PO Q48H 11/08/16 [History] Aspirin [Lo-Dose Aspirin EC] 81 mg PO DAILY 06/01/17 [History] Calcium Carbonate [Calcium] 500 mg PO DAILY 06/01/17 [History] Fosinopril Sodium 20 mg PO BID 06/01/17 [History] Ipratropium/Albuterol Neb [Duoneb] 3 ml IH [id number] PRN 06/01/17 [History] Memantine [Namenda] 5 mg PO DAILY #30 tablet 11/11/17 [Rx] Ascorbate Calcium [Vitamin C] 500 mg PO DAILY #30 tablet 12/15/17 [Rx] Ferrous Sulfate [Iron] 325 mg PO DAILY #30 tablet 12/15/17 [Rx] Letrozole [Femara] 2.5 mg PO DAILY #90 tablet 01/11/18 [Rx] Diltiazem CD (24hr) [Cardizem CD] 180 mg PO DAILY 01/19/18 [History] Meloxicam [Meloxicam] 15 mg PO DAILY 01/19/18 [History] Metoprolol Tartrate [Metoprolol Tartrate] 50 mg PO BID 01/19/18 [History] hydrOXYzine HCl [Hydroxyzine HCl] 1 - 2 tab PO HS PRN 01/19/18 [History] hydroCHLOROthiazide [Hydrochlorothiazide] 25 mg PO DAILY 01/19/18 [History] 3 Allergy/AdvReac Type Severity Reaction Status Date / Time Penicillins Allergy Mild Hives, Verified 01/19/18 09:58 itch, shortness of breath Bisphosphonates AdvReac Unconscious Verified 01/19/18 09:58 Review of Systems All systems PM: The remainder of the systems were reviewed and are negative General Surgery Exam Initial Vital Signs Temp Pulse Resp BP Pulse Ox 98.2 F 104 22 71/37 96 01/19/18 08:29 01/19/18 08:29 01/19/18 08:29 01/19/18 08:29 01/19/18 08:29 Exam Initial Vital Signs Temp Pulse Resp BP Pulse Ox 98.2 F 104 22 71/37 96 01/19/18 08:29 01/19/18 08:29 01/19/18 08:29 01/19/18 08:29 01/19/18 08:29 Results - Labs 01/19/18 08:44 01/19/18 08:44 Abnormal lab results RBC 3.67 M/mcL (3.82-4.97) L 01/19/18 08:44 Hgb 10.3 g/dL (11.5-15.4) L 01/19/18 08:44 Hct 32.6 % (35.3-44.9) L 01/19/18 08:44 RDW 15.5 % (11.5-14.5) H 01/19/18 08:44 Band Neutrophils % 19.0 % (0-4) H 01/19/18 08:44 Hypochromasia Present (Not Present) A 01/19/18 08:44 PT 15.7 Seconds (9.4-12.1) H 01/19/18 08:44 APTT 23.8 Seconds (26.0-36.0) L 01/19/18 08:44 BUN 30 mg/dL (8-23) H 01/19/18 08:44 Creatinine 2.02 mg/dL (0.60-1.20) H 01/19/18 08:44 Est GFR ( Amer) 28 (> 60) L 01/19/18 08:44 Est GFR (Non-Af Amer) 23 (> 60) L 01/19/18 08:44 Lactic Acid 3.1 mmol/L (0.5-2.2) H 01/19/18 08:44 Calcium 8.4 mg/dL (8.6-10.3) L 01/19/18 08:44 Troponin I 0.04 ng/mL (< 0.04) H* 01/19/18 08:44 B-Natriuretic Peptide 773 pg/mL (Less than 100) H 01/19/18 08:43 Lipase 3 Units/L (11-82) L 01/19/18 08:44 Diabetes panel 01/19/18 Range/Units 08:44 Sodium 136 (136-145) mEq/L Potassium 4.1 (3.5-5.1) mEq/L Chloride 103 (98-107) mEq/L Carbon Dioxide 23 (23-29) mEq/L BUN 30 H (8-23) mg/dL Creatinine 2.02 H (0.60-1.20) mg/dL Glucose 93 (70-105) mg/dL Calcium 8.4 L (8.6-10.3) mg/dL Calcium panel 01/19/18 Range/Units 08:44 Calcium 8.4 L (8.6-10.3) mg/dL Pituitary panel 01/19/18 Range/Units 08:44 Sodium 136 (136-145) mEq/L Potassium 4.1 (3.5-5.1) mEq/L Chloride 103 (98-107) mEq/L Carbon Dioxide 23 (23-29) mEq/L BUN 30 H (8-23) mg/dL Creatinine 2.02 H (0.60-1.20) mg/dL Glucose 93 (70-105) mg/dL Calcium 8.4 L (8.6-10.3) mg/dL Adrenal panel 01/19/18 Range/Units 08:44 Sodium 136 (136-145) mEq/L Potassium 4.1 (3.5-5.1) mEq/L Chloride 103 (98-107) mEq/L Carbon Dioxide 23 (23-29) mEq/L BUN 30 H (8-23) mg/dL Creatinine 2.02 H (0.60-1.20) mg/dL Glucose 93 (70-105) mg/dL Calcium 8.4 L (8.6-10.3) mg/dL All other labs normal. Consult Discharge Plan - Plan Referrals: Albina Bryson MD [Primary Care Provider] -
[2018-01-19] MEDS ORDERED: Acetaminophen 325 MG TABLET PO PRN (13:08)
[2018-01-19] MEDS ORDERED: Naloxone 0.4 MG/ML INJ IVP PRN (13:08)
[2018-01-19] MEDS ORDERED: Vancomycin 1 EACH in 0.9 % Sodium Chloride 250 ML IVPB SCH (14:00)
--- NOTE | 2018-01-19 14:01 | Internal Med History&Physical ---
<GabrielatrishaginaRussel - Last Filed: 01/19/18 20:00> Date of Encounter: 01/19/18 Time of Encounter: 12:30 Internal Medicine - H&P: HPI Chief complaint: Abdominal pain Admitted From: Emergency Dept Plans for Post Hospital Care: Home History of present illness: Ms. Walden is a 87 year old female w/PMH of asthma, history of breast cancer, current ovarian cancer w/peritoneal metastasis, CHF, COPD, and HTN presents from the ED with chief complaint of abdominal pain for the past 3 days accompanied by nausea, vomiting, and fever of 103F yesterday. Patient also reports melanotic stools over the past 3 days as well. Patient currently on iron supplement. Patient experiencing shooting pains throughout her right lower quadrant to right upper quadrant. Pt. reports SOB and bilateral weakness in LEs but denies recent illness, headache, changes in vision, chest pain, cough , chest congestion, diarrhea, constipation, numbness, tingling, dizziness, lightheadedness, pre-syncope, or syncope. Past Med Surg Social Fam HX - Past Medical History Source: patient, old records reviewed, obtained from family Medical history: asthma, cancer (Breast (Resolved) and current Ovarian (taking Femara)), CHF, COPD, hypertension Psychiatric history: no psych history - Past Surgical History Surgical History: appendectomy, breast surgery, cancer surgery, cholecystectomy , other - Social History Smoking Status: Former smoker Packs per day: 1/2 to 1 PPD - Reports quitting 30 years ago Smokeless Tobacco Status: No Alcohol use: none Drug use: none Current living situation: Home, With Family Activity Level: Uses cane/walker Recent Out of Country Travel Within the Last 8 Weeks: No Exposure or Possible Exposure to Illness During Travel: No - Family History Mother Race: Family Member Ethnicity: Non- Living Status: Age at : 91 Cause of : Old age Father Race: Family Member Ethnicity: Non- Living Status: Age at : 45 Cause of : SD Hx Family Cardiac Disorders: Yes (SD, HTN, HLD) Brother Race: Family Member Ethnicity: Non- Living Status: Age at : 45 Cause of : Lung cancer Hx Family Cancer: Yes (Lung) Sister Race: Family Member Ethnicity: Non- Living Status: Age at : 52 Cause of : Brain tumor Hx Family Cardiac Disorders: Yes (CVA) Hx Family Cancer: Yes (Brain tumor) Hx Family Neurologic Disorders: Yes (CVA) Internal Medicine - H&P: Meds Albuterol Sulfate [Albuterol Inhaler] 1 puff IH Q4HR PRN 04/29/15 [History] Furosemide [Lasix] 40 mg PO BID PRN 04/29/15 [History] Mometasone/Formoterol [Dulera 200 Mcg/5 Mcg Inhaler] 2 puff IH BID 04/29/15 [ History] Febuxostat [Uloric] 40 mg PO DAILY #30 tablet 10/26/16 [Rx] Potassium Chloride [Klor-Con 10] 10 meq PO Q48H 11/08/16 [History] Aspirin [Lo-Dose Aspirin EC] 81 mg PO DAILY 06/01/17 [History] Calcium Carbonate [Calcium] 500 mg PO DAILY 06/01/17 [History] Fosinopril Sodium 20 mg PO BID 06/01/17 [History] Ipratropium/Albuterol Neb [Duoneb] 3 ml IH [id number] PRN 06/01/17 [History] Memantine [Namenda] 5 mg PO DAILY #30 tablet 11/11/17 [Rx] Ascorbate Calcium [Vitamin C] 500 mg PO DAILY #30 tablet 12/15/17 [Rx] Ferrous Sulfate [Iron] 325 mg PO DAILY #30 tablet 12/15/17 [Rx] Letrozole [Femara] 2.5 mg PO DAILY #90 tablet 01/11/18 [Rx] Diltiazem CD (24hr) [Cardizem CD] 180 mg PO DAILY 01/19/18 [History] Meloxicam [Meloxicam] 15 mg PO DAILY 01/19/18 [History] Metoprolol Tartrate [Metoprolol Tartrate] 50 mg PO BID 01/19/18 [History] hydrOXYzine HCl [Hydroxyzine HCl] 1 - 2 tab PO HS PRN 01/19/18 [History] hydroCHLOROthiazide [Hydrochlorothiazide] 25 mg PO DAILY 01/19/18 [History] 3 Allergy/AdvReac Type Severity Reaction Status Date / Time Penicillins Allergy Mild Hives, Verified 01/19/18 09:58 itch, shortness of breath Bisphosphonates AdvReac Unconscious Verified 01/19/18 09:58 All Systems PM: A 10-system review of systems was performed and is negative for pertinent findings except as documented above in the HPI. - Constitutional Constitutional: no chills, no fever(s), no night sweats - EENT Eyes: no change in vision, no discharge, no pain, no photophobia Ears: no ear discharge, no ear pain, no tinnitus Nose, mouth and throat: no dysphagia, no nasal discharge, no neck pain, no sore throat - Breasts Breasts: as per HPI - Cardiovascular Cardiovascular ROS IM: no chest pain, no diaphoresis, no dyspnea, no lightheadedness, no palpitations, no syncope - Respiratory Respiratory: no cough, no dyspnea, no wheezing, no excessive phlegm production - Gastrointestinal Gastrointestinal: as per HPI, abdominal pain, melena, nausea, vomiting, no diarrhea, no hematemesis, no hematochezia - Genitourinary Genitourinary: no change in urinary stream, no dysuria, no flank pain, no hematuria Menstruation: as per HPI - Musculoskeletal Musculoskeletal ROS IM: no numbness, no tingling - Integumentary Integumentary IM: no rash, no unusual bruising - Neurological Neurological ROS: no confusion, no convulsions, no focal weakness, no numbness, no tingling, no tremor(s) - Psychiatric Psychiatric: as per HPI - Endocrine Endocrine IM: as per HPI - Hematologic/Lymphatic Hematologic/Lymphatic: no easy bruising - Allergic/Immunologic Allergic/Immunologic: as per HPI - Constitutional Vitals: Temp Pulse Resp BP Pulse Ox 98.2 F 90 13 125/56 97 01/19/18 08:29 01/19/18 13:14 01/19/18 13:14 01/19/18 13:14 01/19/18 13:14 General appearance: Present: cooperative, mild distress (Abdominal pain in RUQ) , A&O X 3, pleasant, obese, answers questions appropriately - Head Head exam: Present: atraumatic, normocephalic - Eye Eye exam: Present: PERRL, conjuntiva pink, sclera anicteric Pupils: Present: PERRL - ENT ENT exam: Present: normal exam - Neck Neck exam general surgery: Present: normal inspection - Respiratory Respiratory exam: Present: CTAB. Absent: accessory muscle use, rales, rhonchi, wheezes - Cardiovascular Cardiovascular exam: Present: +S1, +S2, tachycardia. Absent: diastolic murmur, gallop, rubs, systolic murmur - GI/Abdominal GI/Abdominal exam: Present: normal bowel sounds, soft, tenderness (RLQ to RUQ), no peritoneal signs. Absent: distended - Rectal Rectal exam: Present: deferred - Additional comments: exam deferred. - Extremities Exam Extremities exam: Present: warm, radial pulses palpable and symmetrical. Absent : calf tenderness, cyanotic, pedal edema - Back Exam Back exam: Present: normal inspection - Neurological Exam Neurological exam: Present: CN II-XII intact, oriented X3, no focal deficits. Absent: pronater drift, facial droop, speech deficit - Psychiatric Psychiatric exam: Present: normal affect, normal mood - Skin Skin exam: Present: dry, intact Internal Med - H&P Results - Labs CBC & Chem 7: 01/19/18 08:44 01/19/18 08:44 - EKG Data EKG shows normal: sinus rhythm Rate: tachycardia - EKG Data Prior EKG available for review: yes EKG comments: 01/19/18 15:46 EKG dated 11/08/16 shows sinus rhythm with first-degree AV block. EKG dated 01/19/18 shows sinus tachycardia with occasional supraventricular premature complexes, low QRS voltage in precordial leads, and nonspecific T- wave abnormality. - Diagnostic Studies CT scan - abdomen Additional comments: Impressions Abdomen/Pelvis CT 01/19/18 08:42 IMPRESSION: 1. Extraluminal gas with pockets of gas seen throughout the abdomen and free intraperitoneal air noted anteriorly in the abdomen. A perforated viscus is likely. There is some fluid seen adjacent to the left side of the colon. Diverticulosis is seen in this region and a perforation of the colon could cause this appearance. 2. Free fluid in the pelvis. 3. No obstructive uropathy. 4. Increased omental caking anteriorly suggesting progression of ovarian malignancy. Findings were discussed with Paul Meng at 10:50 am on 01/19/2018. D/ / 01/19/2018 11:18:31 Miguel Coelho MD / maribel Interpreting Provider: Miguel Coelho MD CT scan - chest Additional comments: Impressions Chest CT 01/19/18 09:06 IMPRESSION: 1. No acute abnormalities seen in the chest. 2. Atherosclerotic changes in the thoracic aorta with coronary artery calcifications as well. 3. Extraluminal gas noted in the abdomen as described on the CT of the abdomen and pelvis has been discussed with the ER physician. D/ / 01/19/2018 11:24:47 Miguel Coelho MD / sharon Interpreting Provider: Miguel Coelho MD - Assessment and plan (1) Sepsis Current Visit: Yes Status: Acute Assessment and plan: Acute sepsis criteria w/HR of 99, RR of 30, perforated bowel, and lactic acid of 3.1. Pt. started on IVPB ciprofloxacin 400 mg and Flagyl 500 mg in the ED per recommendations from surgery. We will continue ciprofloxacin IVPB 400 mg every 12 hour and Flagyl 500 mg IVPB every 8 hour and add vancomycin with pharmacy dosing for sepsis coverage. Blood cultures x2 ordered. 0.9 NS IV fluids @ 100 mL/HR. Timed lactic acids ordered. Continuous cardiac telemetry. Supplemental O2 w/titration and SpO2 monitoring. WBC currently 9.0 on admission. Patient and f/u labs to be monitored closely. Pt. discussed w/Dr. Posadas who agrees w/plan of care. Pt. is high risk for sepsis, further infection, and further morbidity d/t current bowel perforation, immunocompromised status d/ t cancer dx, sepsis criteria, hx, and risk factors. Inpatient. Qualifiers: Sepsis type: sepsis due to unspecified organism Qualified Code(s): A41.9 - Sepsis, unspecified organism (2) Perforated abdominal viscus Current Visit: Yes Status: Acute Assessment and plan: CT of abdomen/pelvis today suspicious for perforated viscus with fluid seen adjacent to left side of the colon. Diverticulosis is seen in this region and perforation of the colon could cause this appearance. Surgical consult placed in ED and I appreciate the consult. 0.9 NS @ 100 mL/HR. Surgical consult recommendations for IV fluids and IV antibiotics d/t pt. declining surgery at this time. Palliative Care consult ordered. Pt. is high risk for sepsis d/t perforation and is to be followed closely for sepsis protocol. (3) Abdominal pain Current Visit: Yes Status: Acute Assessment and plan: Acute abdominal pain accompanied by N/V/F last night. NPO status. CT of abdomen /pelvis today suspicious for perforated viscus with fluid seen adjacent to left side of the colon. Diverticulosis is seen in this region and perforation of the colon could cause this appearance. Surgical consult placed in ED and I appreciate the consult. 0.9 NS @ 100 mL/HR. Surgical consult recommendations for IV fluids and IV antibiotics d/t pt. declining surgery at this time. Palliative Care consult ordered. Pt. is high risk for sepsis d/t perforation and is to be followed closely for sepsis protocol. Qualifiers: Abdominal location: right lower quadrant Qualified Code(s): R10.31 - Right lower quadrant pain (4) Goals of care, counseling/discussion Current Visit: Yes Status: Acute Assessment and plan: Pt. has ovarian cancer dx and previous breast cancer dx. Taking Femara only. Opted out of chemo/radiation txs. Discussed Palliative Care w/pt. and daughter and goals of care. Both amenable for discussion regarding plan of care. Pt. currently DNRCCA DNI. Palliative Care consult ordered and discussed w/Eda Phillips and I appreciate the consult. (5) COPD (chronic obstructive pulmonary disease) Current Visit: Yes Status: Chronic Assessment and plan: Hx of chronic COPD. Stable. Supplemental O2 w/titration and SpO2 monitoring. DuoNebs Q6. Continue pts. inhalers. Qualifiers: COPD type: unspecified COPD Qualified Code(s): J44.9 - Chronic obstructive pulmonary disease, unspecified (6) HTN (hypertension) Current Visit: Yes Status: Chronic Assessment and plan: Hx of chronic HTN. Monitor pt. and VS. Pts. meds to be held d/t N/V over past three days. Will administer IV Cardizem and/or hydralazine as needed. Qualifiers: Hypertension type: essential hypertension Qualified Code(s): I10 - Essential (primary) hypertension (7) Anemia Current Visit: Yes Status: Chronic Assessment and plan: Hx of chronic anemia. Hgb 10.3 and Hct 32.6 on admission which is at or near pts. recent baseline. Monitor H/H in f/u labs. Qualifiers: Anemia type: unspecified type Qualified Code(s): D64.9 - Anemia, unspecified (8) DVT prophylaxis Current Visit: Yes Status: Acute Assessment and plan: Bilateral SCDs on pts. LEs for DVT prophylaxis. (9) CHF (congestive heart failure) Current Visit: Yes Status: Chronic Assessment and plan: Hx of chronic CHF. Stable. Will monitor pt. for signs of fluid overload. Pt. currently receiving fluids for sepsis criteria @ 100 mL/HR. Continuous cardiac telemetry. Qualifiers: Heart failure type: unspecified Heart failure chronicity: chronic Qualified Code(s): I50.9 - Heart failure, unspecified - Time Spent With Patient Total time spent is greater than 50% in coordination of care (as documented) at patient's floor/unit and/or counseling patient: Greater than 35 minutes <Vianey Posadas - Last Filed: 01/19/18 21:10> Date of Encounter: 01/19/18 Internal Medicine - H&P: HPI History of present illness: Ms. Walden is a 87 year old female All Systems PM: A 10-system review of systems was performed and is negative for pertinent findings except as documented above in the HPI. - Constitutional Vitals: Temp Pulse Resp BP Pulse Ox 98.2 F 90 28 125/56 96 01/19/18 08:29 01/19/18 13:14 01/19/18 20:56 01/19/18 13:14 01/19/18 20:56 Internal Med - H&P Results - Labs CBC & Chem 7: 01/19/18 08:44 01/19/18 08:44 Labs: Cardiac Enzymes 01/19/18 01/19/18 Range/Units 14:59 20:24 Troponin I 0.03 0.03 (< 0.04) ng/mL - Attending Attestation Patient is examined review of the note and agreed plan of care. Family at bedside. Patient appeared alert awake oriented with no acute distress. Diffuse abdomen tenderness but more on left side, decreased bowel sounds. Not the surgical candidate but continue supportive treatment with IV fluid, nothing by mouth, IV antibiotic. Patient has severe allergy to penicillin therefore Cipro Flagyl and vancomycin as started. Talk to the family and patient about the clinical his status and expected progression. Family is willing to get consultation to palliative services. Consulted oncologist. - Assessment and plan (1) DVT prophylaxis Current Visit: Yes Status: Acute (2) Anemia Current Visit: Yes Status: Chronic Qualifiers: Anemia type: unspecified type Qualified Code(s): D64.9 - Anemia, unspecified (3) Abdominal pain Current Visit: Yes Status: Acute Qualifiers: Abdominal location: right lower quadrant Qualified Code(s): R10.31 - Right lower quadrant pain (4) Goals of care, counseling/discussion Current Visit: Yes Status: Acute (5) COPD (chronic obstructive pulmonary disease) Current Visit: Yes Status: Chronic Qualifiers: COPD type: unspecified COPD Qualified Code(s): J44.9 - Chronic obstructive pulmonary disease, unspecified (6) HTN (hypertension) Current Visit: Yes Status: Chronic Qualifiers: Hypertension type: essential hypertension Qualified Code(s): I10 - Essential (primary) hypertension (7) Sepsis Current Visit: Yes Status: Acute Qualifiers: Sepsis type: sepsis due to unspecified organism Qualified Code(s): A41.9 - Sepsis, unspecified organism (8) Perforated abdominal viscus Current Visit: Yes Status: Acute (9) CHF (congestive heart failure) Current Visit: Yes Status: Chronic Qualifiers: Heart failure type: unspecified Heart failure chronicity: chronic Qualified Code(s): I50.9 - Heart failure, unspecified - Time Spent With Patient Total time spent is greater than 50% in coordination of care (as documented) at patient's floor/unit and/or counseling patient:
[2018-01-19] MEDS: 0.9 % Sodium Chloride 1,000 ML IVC SCH (15:13)
--- NOTE | 2018-01-19 15:44 | Palliative - Consult Note ---
Date of Encounter: 01/19/18 Time of Encounter: 14:05 - Assessment and Plan (1) Dyspnea, unspecified Current Visit: Yes Status: Acute Assessment and plan: Patient reports increased dyspnea as having increased pain with breathing. Continue oxygen therapy and Duonebs. Patient confirms she is a Do not Intubate status. Qualifiers: Dyspnea type: shortness of breath Qualified Code(s): R06.02 - Shortness of breath; R06.00 - Dyspnea, unspecified; R06.01 - Orthopnea (2) Abdominal pain Current Visit: No Status: Resolved Assessment and plan: Patient reports increased Abdominal Pain, unable to rate on pain scale. Patient is described as an ache that is worsened by breathing. Denies anything making it better. Will order Fentanyl 25 mcg IVP Q2H PRN for pain control. Qualifiers: Abdominal location: generalized Qualified Code(s): R10.84 - Generalized abdominal pain (3) Mass of peritoneum Current Visit: No Status: Acute Assessment and plan: Patient has ovarian cancer; patient is opting to stop all CA related treatments , as she feels "I can't survive another round of chemo." (4) Goals of care, counseling/discussion Current Visit: Yes Status: Acute Assessment and plan: Patient reports to living alone with frequent family check ins. Two of the patient's three daughters are present at bedside; patient's one daughter is in another state with the patient's grandson admitted to a hospital with a brain injury, combative, on a ventilator. Family reports they are unsure how to tell their other sister that their mother is sick. Patient denies nausea or chest pain. Family reports in the past patient has refused home health. Reinforced CODE STATUS; acknowledgement made by patient stating "what I am supposed to , I will ." Family and patient request for patient to be treated with IV antibiotics and fluids for a couple days prior to final discharge planning arrangements be made. Family reports they are willing to work out a schedule for family to be with patient 18/04 if patient decides to go home with hospice for symptom management. Family inquired about ECF placement if needed; report patient is ineligible for Medicaid and patient is unwilling to sign up for Medicaid at this time. Explained if patient would not be Medicaid eligible and non-skill status of ECF then patient would have to pay privately. Family reports wish to bring patient home versus ECF at this time. Palliative Care will continue to follow this patient. [facility] has already been established as Halle Baron, daughter, . Julia Medeiros is patient's other daughter . Palliative-CN HPI - Data of Consult Patient: new to practice Consult date: 01/19/18 Requesting Physician: Renetta Pulliam Primary Care Provider: Albina Bryson - Consult Narrative Palliative Care/Comfort Measures: Palliative care Reason for consult: Goals of care. History of present illness: Ms. Walden is a 87 year old female presents to [place] [facility] from home for evaluation of a current 3 day history of GI bleeding, with dark brown stools and taking iron supplements. Patient was evaluated by PCP yesterday, whom prescribed an antibiotic after fever of 103F. Patient diagnosed with perforated viscus and has generalized abdominal pain. Patient presented to ER with weakness and increased dyspnea. PMH: current active ovarian cancer with peritoneal metastasis on hormonal blockers, Asthma, CHF, HTN, and history of right breast cancer. Patient is a current patient of Dr. Sam; however, family reports patient stated yesterday to PCP that she is refusing continued treatment for cancer; they are contacting Dr. Sam to notify his office. Surgical evaluation performed by Dr. Luevano resulting in treatment options including exploratory celiotomy with resection of the perforated bowel and end colostomy versus medical management with IV antibiotics and pain control, as patient is not an optimal candidate for surgery. Palliative Care Consultation requested to goals of care discussion. Patient resting quietly in bed. Patient is alert and oriented times three. Patient complains of abdominal pain, describes as an ache in her abdominal, but is unable to rate on a pain scale. Abdominal pain to be noted more in RLQ. Patient reports an increase of shallow breathing as more pain is felt with breathing, resulting in shortness of breath. CC: Renetta Pulliam Past Med Surg Social Fam HX - Past Medical History Medical history: asthma, cancer, CHF, COPD, hypertension Psychiatric history: no psych history - Past Surgical History Surgical History: appendectomy, breast surgery, cancer surgery, cholecystectomy , other - Social History Smoking Status: Former smoker Smokeless Tobacco Status: No Alcohol use: none Drug use: none - Family History Mother Living Status: Hx Family Cardiac Disorders: Yes Hx Family Respiratory Disorders: No Hx Family Cancer: No Hx Family Endocrine Disorder: Yes (DM) Hx Family Neurologic Disorders: No Medications and Allergies Albuterol Sulfate [Albuterol Inhaler] 1 puff IH Q4HR PRN 04/29/15 [History] Furosemide [Lasix] 40 mg PO BID PRN 04/29/15 [History] Mometasone/Formoterol [Dulera 200 Mcg/5 Mcg Inhaler] 2 puff IH BID 04/29/15 [ History] Febuxostat [Uloric] 40 mg PO DAILY #30 tablet 10/26/16 [Rx] Potassium Chloride [Klor-Con 10] 10 meq PO Q48H 11/08/16 [History] Aspirin [Lo-Dose Aspirin EC] 81 mg PO DAILY 06/01/17 [History] Calcium Carbonate [Calcium] 500 mg PO DAILY 06/01/17 [History] Fosinopril Sodium 20 mg PO BID 06/01/17 [History] Ipratropium/Albuterol Neb [Duoneb] 3 ml IH [id number] PRN 06/01/17 [History] Memantine [Namenda] 5 mg PO DAILY #30 tablet 11/11/17 [Rx] Ascorbate Calcium [Vitamin C] 500 mg PO DAILY #30 tablet 12/15/17 [Rx] Ferrous Sulfate [Iron] 325 mg PO DAILY #30 tablet 12/15/17 [Rx] Letrozole [Femara] 2.5 mg PO DAILY #90 tablet 01/11/18 [Rx] Diltiazem CD (24hr) [Cardizem CD] 180 mg PO DAILY 01/19/18 [History] Meloxicam [Meloxicam] 15 mg PO DAILY 01/19/18 [History] Metoprolol Tartrate [Metoprolol Tartrate] 50 mg PO BID 01/19/18 [History] hydrOXYzine HCl [Hydroxyzine HCl] 1 - 2 tab PO HS PRN 01/19/18 [History] hydroCHLOROthiazide [Hydrochlorothiazide] 25 mg PO DAILY 01/19/18 [History] 3 Allergy/AdvReac Type Severity Reaction Status Date / Time Penicillins Allergy Mild Hives, Verified 01/19/18 09:58 itch, shortness of breath Bisphosphonates AdvReac Unconscious Verified 01/19/18 09:58 - Constitutional Constitutional ROS PAL: fever(s), lethargy, no decreased appetite - Cardiovascular Cardiovascular ROS: no chest pain, no dyspnea on exertion, no pedal edema, no radiating pain - Respiratory Respiratory: dyspnea, dyspnea on exertion, pain on inspiration - Gastrointestinal Gastrointestinal: abdominal pain, bloating, change in stool character, coffee ground emesis, no nausea, no vomiting - Psychiatric Psychiatric general PM: no change in appetite Palliative Care-Exam - Constitutional Vitals: Temp Pulse Resp BP Pulse Ox 98.2 F 90 13 125/56 97 01/19/18 08:29 01/19/18 13:14 01/19/18 13:14 01/19/18 13:14 01/19/18 13:14 General appearance: Present: cooperative. Absent: no acute distress - Head Head Exam: Present: normal inspection - Expanded Head Exam Head exam expanded IM: Absent: general tenderness - Eye Eye exam: Present: EOMI, normal appearance, conjuntiva pink. Absent: nystagmus Pupils: Present: normal accommodation, PERRL - ENT ENT exam: Present: mucous membranes moist, normal exam, normal external ear exam - Expanded ENT Exam Mouth Exam: Absent: drooling - Neck Neck exam: Present: full ROM, normal inspection - Respiratory Respiratory exam: Present: CTAB (Shallow breaths.). Absent: accessory muscle use - Cardiovascular Cardiovascular exam: Present: RRR, +S1, +S2 - Expanded Cardiovascular Exam Peripheral pulses: 1+: Radial (L), Radial (R), Posterior Tibialis (L), Posterior Tibialis (R) - GI/Abdominal Exam GI/Abdominal exam: Present: diminished bowel sounds, distended, firm, guarding, rigid, tenderness. Absent: soft - Rectal Rectal exam: Present: black stool - Extremities Exam Extremities exam: Present: normal inspection. Absent: calf tenderness, pedal edema - Neurological Exam Neurological exam: Present: alert, oriented X3, strengths equal and symetr throughout. Absent: altered, speech deficit - Expanded Neurological Exam Patient oriented to: Present: person, place, time Coma Scale Eye Opening: Spontaneous Coma Scale Motor Response: Obeys Commands Coma Scale Verbal Response: Oriented Coma Scale Total: 15 - Psychiatric Psychiatric exam: Present: normal affect, normal mood - Skin Skin exam: Present: dry, intact, normal color Internal Medicine - CN: Reslt - Labs CBC & Chem 7: 01/19/18 08:44 01/19/18 08:44 - ABG Interpretation ABG results: PT/INR, D-dimer PT 15.7 Seconds (9.4-12.1) H 01/19/18 08:44 Consult Discharge Plan - Plan Referrals: Albina Bryson MD [Primary Care Provider] - Palliative Quality Palliative Quality: Screen for Code Status: Yes, Screen for Goals of Care: Yes, Screen for Pain: Yes, If Pain Regimen Started, Initiate Bowel Regimen: NA, Screen for Nausea/Vomitting: Yes Code Status: 01/19/18 13:08 Resuscitation Status: Active [RES] Routine Comment: Resuscitation Status: [id number]
[2018-01-19] MEDS: *HR* FentaNYL (PF) 100 MCG/2 ML VIAL IVP PRN ×2 (16:27→18:40)
[2018-01-19] MEDS: Pantoprazole 40 MG VIAL IVP SCH (16:30)
[2018-01-19] MEDS: Ipratropium/Albuterol Neb 3 ML IH PRN (20:56)
[2018-01-19] MEDS: OXYCODONE Oral CONC 10 MG/0.5 ML ORAL.SYG SL PRN (21:15)
--- NOTE | 2018-01-19 21:25 | Oncology Inp Consult Note ---
<Yenny Courtney L - Last Filed: 01/20/18 07:34> Date of Encounter: 01/20/18 Assessment and Plan (1) Primary peritoneal carcinomatosis Status: Acute Assessment and plan: Stage IIIc high-grade, serous (papillary) primary peritoneal carcinomatosis. ER FL positive She has been on endocrine therapy since 01/26/16 with Femara. Imaging has shown progression of anterior peritoneal wall metastasis along with biochemical progression in tumor markers, she was planned for PET imaging yesterday with further discussion on chemotherapy to follow with Dr. Sam. Patient and patients family inform me today that patient decided to not undergo PET scan yesterday and not pursue any further chemotherapy treatment. Patients daughter states she called the office yesterday to inform staff of this decision. Discussed again with patient and patients daughters at bedside today. Patient states she does not wish to undergo chemotherapy and instead would like to enroll in hospice/ECF. The hospice philosophy was discussed. Patient already working with palliative team, appreciate continued recommendations. The patient was given the option to call the cancer center for any further questions or concerns, but understands she will not be pursuing further treatment at this time. Patient is a DNR-CCA DNI. (2) Breast cancer Status: Acute Assessment and plan: Right-sided invasive breast carcinoma: [id number] IIIc, grade 3 triple negative breast cancer. She also had resection of intraductal papilloma of the left breast. She has a confirmed BRCA2 [id number]. Breast cancer was diagnosed November 2014 and she had right mastectomy and left lumpectomy on 01/21/[address] Wilson. Pathology Left breast: Residual papillary lesion with flat epithelial atypia and calcifications. No evidence of malignancy. Right breast: 5.5 cm, grade 3 invasive ductal carcinoma with DCIS component. Positive for LVI. 09/12 lymph nodes positive for malignancy. ER/FL and HER-2 - Adjuvant chemotherapy Taxotere plus Cytoxan followed by adjuvant radiation therapy which she tolerated relatively well. She has not had any evidence of breast cancer recurrence subsequently. Currently in remission Qualifiers: Breast location: unspecified site of breast Patient sex: female Laterality: right Qualified Code(s): C50.911 - Malignant neoplasm of unspecified site of right female breast; Z17.1 - Estrogen receptor negative status [ER-]; Z17.1 - Estrogen receptor negative status [ER-] (3) Perforated abdominal viscus Status: Acute Assessment and plan: Reviewed surgical consultation note with Dr. Luevano. Pneumoperitoneum possibly due to progression of ovarian carcinoma or diverticular disease. Following Dr. Luevano's discussion with patient/family regarding surgical options versus medical management-patient ultimately declined surgical treatment in favor of medical management and palliative care consultation. Palliative care team working with patients for further discharge planning and arrangements. - Data of Consult Patient: known to practice within the last 3 years Consult date: 01/19/18 Requesting Physician: Renetta Pulliam Primary Care Provider: Albina Bryson - Consult Narrative History of present illness: Ms. Walden is a 87 year old female Medications and Allergies Albuterol Sulfate [Albuterol Inhaler] 1 puff IH Q4HR PRN 04/29/15 [History] Furosemide [Lasix] 40 mg PO BID PRN 04/29/15 [History] Mometasone/Formoterol [Dulera 200 Mcg/5 Mcg Inhaler] 2 puff IH BID 04/29/15 [ History] Febuxostat [Uloric] 40 mg PO DAILY #30 tablet 10/26/16 [Rx] Potassium Chloride [Klor-Con 10] 10 meq PO Q48H 11/08/16 [History] Aspirin [Lo-Dose Aspirin EC] 81 mg PO DAILY 06/01/17 [History] Calcium Carbonate [Calcium] 500 mg PO DAILY 06/01/17 [History] Fosinopril Sodium 20 mg PO BID 06/01/17 [History] Ipratropium/Albuterol Neb [Duoneb] 3 ml IH [id number] PRN 06/01/17 [History] Memantine [Namenda] 5 mg PO DAILY #30 tablet 11/11/17 [Rx] Ascorbate Calcium [Vitamin C] 500 mg PO DAILY #30 tablet 12/15/17 [Rx] Ferrous Sulfate [Iron] 325 mg PO DAILY #30 tablet 12/15/17 [Rx] Letrozole [Femara] 2.5 mg PO DAILY #90 tablet 01/11/18 [Rx] Diltiazem CD (24hr) [Cardizem CD] 180 mg PO DAILY 01/19/18 [History] Meloxicam [Meloxicam] 15 mg PO DAILY 01/19/18 [History] Metoprolol Tartrate [Metoprolol Tartrate] 50 mg PO BID 01/19/18 [History] hydrOXYzine HCl [Hydroxyzine HCl] 1 - 2 tab PO HS PRN 01/19/18 [History] hydroCHLOROthiazide [Hydrochlorothiazide] 25 mg PO DAILY 01/19/18 [History] 3 Allergy/AdvReac Type Severity Reaction Status Date / Time Penicillins Allergy Mild Hives, Verified 01/19/18 09:58 itch, shortness of breath Bisphosphonates AdvReac Unconscious Verified 01/19/18 09:58 Constitutional: Present: anorexia, chills, fatigue, fever(s), malaise, weakness , weight loss Eyes: Absent: change in vision Nose, mouth and throat: Absent: dysphagia Cardiovascular: Absent: chest pain, irregular heart rhythm Respiratory: Present: cough, dyspnea Gastrointestinal: Present: abdominal pain, diarrhea, early satiety, nausea. Absent: hematemesis, hematochezia, melena, vomiting Genitourinary: Absent: dysuria, hematuria Musculoskeletal: Present: muscle weakness Integumentary: Absent: wounds Neurological: Present: headache(s). Absent: focal weakness, frequent falls Psychiatric: Present: change in appetite Hematologic/Lymphatic: Present: as per HPI Oncology - Exam - Constitutional Vitals: Temp Pulse Resp BP Pulse Ox 98.4 F 104 28 108/57 95 01/20/18 07:04 01/20/18 07:04 01/20/18 07:04 01/20/18 07:04 01/20/18 07:04 General appearance: cooperative, no acute distress, no febrile Exam: Chronically ill appearing - Head Head exam: Present: atraumatic - ENT ENT exam: Present: mucous membranes dry - Respiratory Respiratory exam: Present: CTAB. Absent: respiratory distress - Cardiovascular Cardiovascular exam: Present: RRR, +S1, +S2 - GI/Abdominal GI/Abdominal exam: Present: hypoactive bowel sounds, soft, tenderness - Extremities Exam Extremities exam: Present: pedal edema. Absent: calf tenderness - Neurological Exam Neurological exam: Present: alert, oriented X3, no focal deficits, strengths equal and symetr throughout - Psychiatric Psychiatric exam: Present: normal affect, normal mood - Skin Skin exam: Present: dry, intact, normal color, warm Oncology - Results Labs: Short CBC 01/20/18 Range/Units 04:41 WBC 8.8 (4.3-11.1) K/mcL Hgb 8.4 L D (11.5-15.4) g/dL Hct 27.0 L (35.3-44.9) % Plt Count 180 (140-400) K/mcL Neutrophils # 8.1 (1.6-8.9) K/mcL BMP 01/20/18 04:41 Sodium 138 Potassium 4.5 Chloride 110 H Carbon Dioxide 20 L BUN 36 H Creatinine 1.80 H Glucose 63 L Calcium 7.2 L Cardiac Enzymes 01/19/18 01/19/18 Range/Units 14:59 20:24 Troponin I 0.03 0.03 (< 0.04) ng/mL Liver Function 01/20/18 Range/Units 04:41 Total Bilirubin 0.4 (0.3-1.0) mg/dL AST 21 (13-39) Units/L ALT 9 (7-52) Units/L Alkaline Phosphatase 46 (34-104) Units/L Albumin 2.7 L (3.5-5.7) g/dL Consult Discharge Plan - Plan Referrals: Albina Bryson MD [Primary Care Provider] - <Ashly Benson - Last Filed: 01/20/18 08:51> Date of Encounter: 01/20/18 Time of Encounter: 18:00 Assessment and Plan (1) Carcinomatosis Status: Acute Assessment and plan: Patient with a history of breast cancer, in remission BRCA mutation was positive , with ovarian cancer, progressive peritoneal carcinomatosis did not wish for any chemotherapy, or debulking surgery, continues on letrozole. We reviewed the progressive changes in imaging with patient and her daughter. Surgical input appreciated. No intervention for perforated viscus, due to peritoneal carcinomatosis. She is on conservative measures with IV hydration antibiotics, continue to manage symptoms. She does not wish to follow-up in oncology clinic for further treatment for malignancy. Palliative care following patient. Once stable possible d/c home with hospice support. I reviewed plan of care with patient bedside today. - Data of Consult Requesting Physician: Renetta Pulliam Primary Care Provider: Albina Bryson - Consult Narrative Reason for consult: perforated viscus, metastatic maignancy History of present illness: 87 yo female last seen in Onc clinic by Dr Sam with hx of right-sided invasive breast carcinoma: [id number] IIIc, grade 3 triple negative, s/p therapy and resection of intraductal papilloma of the left breast, BRCA mutated , with hx stage IIIc high-grade, serous (papillary) primary peritoneal carcinomatosis. ER FL positive has been on endocrine therapy since 01/26/16. on single agent Femara, patient did not want chemotherapy or surgery with increasing CA 125 and CA 27-29. Current value CA 125 around 321 on 11/10/2017 and CA-27-29 525 on 12/08/2017 CAT scan showed progression mainly in that anterior peritoneal wall metastasis per DR Sam's documentation. She is hospitalized with abdominal pain, nausea, emesis and fever. CT scan of abdomen has shown intraperitoneal air extraluminal noted anteriorly in the abdomen indicating possibility of perforated viscus. Increased omental caking with progressive peritoneal metastatic disease. PAtient is being treated with intravenous antibiotics and pain medications, due to metastatic malignancy associated prognosis and per her wishes. This a.m. patient reports that her pain is under control, she had received pain medication a few minutes ago. She denies any nausea she is on oxygen needing breathing treatments at least twice daily. She denies having any bowel movements. Daughter at bedside. . Past Med Surg Social Fam HX - Past Medical History Medical history: asthma, cancer (Breast (Resolved) and current Ovarian (taking Femara)), CHF, COPD, hypertension Psychiatric history: no psych history - Past Surgical History Surgical History: appendectomy, breast surgery, cancer surgery, cholecystectomy , other - Social History Smoking Status: Former smoker Packs per day: 1/2 to 1 PPD - Reports quitting 30 years ago Smokeless Tobacco Status: No Alcohol use: none Drug use: none - Family History Mother Race: Family Member Ethnicity: Non- Living Status: Age at : 91 Cause of : Old age Hx Family Cardiac Disorders: Yes Hx Family Respiratory Disorders: No Hx Family Cancer: No Hx Family Endocrine Disorder: Yes (DM) Hx Family Neurologic Disorders: No Father Race: Family Member Ethnicity: Non- Living Status: Age at : 45 Cause of : CA Hx Family Cardiac Disorders: Yes (CA, HTN, HLD) Brother Race: Family Member Ethnicity: Non- Living Status: Age at : 45 Cause of : Lung cancer Hx Family Cancer: Yes (Lung) Sister Race: Family Member Ethnicity: Non- Living Status: Age at : 52 Cause of : Brain tumor Hx Family Cardiac Disorders: Yes (CVA) Hx Family Cancer: Yes (Brain tumor) Hx Family Neurologic Disorders: Yes (CVA) Oncology - Exam - Constitutional Vitals: Temp Pulse Resp BP Pulse Ox 98.2 F 90 28 125/56 96 01/19/18 08:29 01/19/18 13:14 01/19/18 20:56 01/19/18 13:14 01/19/18 20:56 Oncology - Results Labs: Cardiac Enzymes 01/19/18 01/19/18 Range/Units 14:59 20:24 Troponin I 0.03 0.03 (< 0.04) ng/mL
[2018-01-19] MEDS: MetroNIDAZOLE 500 MG/100 ML 500 MG/100 ML BAG IVPB SCH (23:47)
[2018-01-20] MEDS: Pantoprazole 40 MG VIAL IVP SCH ×2 (03:20→18:06)
[2018-01-20] MEDS: 0.9 % Sodium Chloride 1,000 ML IVC SCH (04:08)
[2018-01-20 05:22] LABS: Basophils % 0.2 %; Eosinophils % 0.3 %; Immature Granulocytes % 0.9 % (0-4); Lymphocytes # 0.4 K/mcL (0.6-4.6); Lymphocytes % 4.6 %; Mean Corpuscular HGB Conc 31.1 g/dL (31.6-35.5); Mean Corpuscular Hemoglobin 27.7 pg (28.0-33.3); Mean Corpuscular Volume 89.1 fL (83.0-100.0); Mean Platelet Volume 11.2 fL (9.4-12.4); Monocytes # 0.2 K/mcL (0.0-1.3); Neutrophils # 8.1 K/mcL (1.6-8.9); Nucleated Red Blood Cells 0.3 /100 WBC (0); Platelet Count 180 K/mcL (140-400); Red Blood Count 3.03 M/mcL (3.82-4.97); Red Cell Distribution Width 15.9 % (11.5-14.5)
[2018-01-20 05:30] LABS: INR 1.7
[2018-01-20 05:32] LABS: Hemoglobin 8.4 g/dL (11.5-15.4)
[2018-01-20 05:33] LABS: Activated Partial Thrombo Time 30.8 Seconds (26.0-36.0)
[2018-01-20 05:47] LABS: Albumin 2.7 g/dL (3.5-5.7); Albumin/Globulin Ratio 0.9 (1.1-2.2); Bilirubin,Total 0.4 mg/dL (0.3-1.0); Calcium 7.2 mg/dL (8.6-10.3); Chol/HDL Ratio 3.2 (0-4.9); Magnesium 1.8 mg/dL (1.6-2.6); Potassium 4.5 mEq/L (3.5-5.1); Total Protein 5.7 g/dL (6.4-8.9)
[2018-01-20 06:03] LABS: Hypochromasia Present (Not Present); Large Platelets Present (Not Present); Platelet Estimate Normal (Normal)
[2018-01-20] MEDS: MetroNIDAZOLE 500 MG/100 ML 500 MG/100 ML BAG IVPB SCH ×2 (07:31→14:32)
[2018-01-20] MEDS: OXYCODONE Oral CONC 10 MG/0.5 ML ORAL.SYG SL PRN (07:38)
[2018-01-20] MEDS ORDERED: Aspirin Enteric Coated 81 MG Tablet PO SCH (09:00)
[2018-01-20] MEDS ORDERED: D5% in 0.45% NACL 1,000 ML IVC SCH (09:15)
--- NOTE | 2018-01-20 09:19 | Internal Med Progress Note ---
<Kirk Negron - Last Filed: 01/20/18 09:57> Date of Encounter: 01/20/18 Time of Encounter: 09:19 - Assessment and plan (1) Perforated abdominal viscus Current Visit: Yes Status: Acute Assessment and plan: CT of abdomen/pelvis today suspicious for perforated viscus with fluid seen adjacent to left side of the colon. Diverticulosis is seen in this region and perforation of the colon could cause this appearance. Patient is currently medically managed with IVF and IV abx. Patient is currently able to make decisions, and has decided to move forward with ECF and hospice. Patient is high risk for SIRS criteria, currently does not meet any of the criteria. - surgery is consulted; discussed with Surgery patient is a poor candidate for surgery and patient declined for surgery yesterday - will coninute IVF and IVF abs - palliative care consulted; appreciate their discussion with family. If patient is going to hospice, can offer diet again as long as patient no longer has n/v. (2) Anemia Current Visit: Yes Status: Chronic Assessment and plan: Hx of chronic anemia. Hgb 10.3 on admission, today hgb dropped to 8.4 will conservatively manage for now. If patient becomes a surgical candidate will be more aggressive in replenishing. - will continue morning labs Qualifiers: Anemia type: unspecified type Qualified Code(s): D64.9 - Anemia, unspecified (3) Abdominal pain Current Visit: Yes Status: Acute Assessment and plan: Abdominal pain in RUQ conintues today. - patient is cancer and hospice patient, will be liberal on administrating pain medication Qualifiers: Abdominal location: right lower quadrant Qualified Code(s): R10.31 - Right lower quadrant pain (4) Goals of care, counseling/discussion Current Visit: Yes Status: Acute Assessment and plan: Patient has declined further chemotherapy treatment. Palliative care has been consulted, and family and patient are in agreement with hospice. Will treat with medical management, but plan on ECF then Home hospice after. Patient is DNR/DNI/CCA. - appreciate input from Palliative care (5) COPD (chronic obstructive pulmonary disease) Current Visit: Yes Status: Chronic Assessment and plan: Hx of chronic COPD. Stable. Supplemental O2 w/titration and SpO2 monitoring. DuoNebs Q6. Continue pts. inhalers. - goal O2 89-92% Qualifiers: COPD type: unspecified COPD Qualified Code(s): J44.9 - Chronic obstructive pulmonary disease, unspecified (6) HTN (hypertension) Current Visit: Yes Status: Chronic Assessment and plan: Hx of chronic HTN. Monitor pt. and VS. Pts. meds to be held d/t N/V over past three days. Will administer IV Cardizem and/or hydralazine as needed. Qualifiers: Hypertension type: essential hypertension Qualified Code(s): I10 - Essential (primary) hypertension (7) Sepsis Current Visit: Yes Status: Acute Assessment and plan: currently does not meet sepsis criteria. Will medically manage. Qualifiers: Sepsis type: sepsis due to unspecified organism Qualified Code(s): A41.9 - Sepsis, unspecified organism (8) DVT prophylaxis Current Visit: Yes Status: Acute Assessment and plan: Bilateral SCDs on pts. LEs for DVT prophylaxis. (9) CHF (congestive heart failure) Current Visit: Yes Status: Chronic Assessment and plan: Hx of chronic CHF. Stable. Will monitor pt. for signs of fluid overload. Pt. currently receiving fluids for sepsis criteria @ 100 mL/HR. Continuous cardiac telemetry. Qualifiers: Heart failure type: unspecified Heart failure chronicity: chronic Qualified Code(s): I50.9 - Heart failure, unspecified - Time Spent With Patient Total time spent is greater than 50% in coordination of care (as documented) at patient's floor/unit and/or counseling patient: - Subjective Interval history: Patient is seen and examined with daughter this morning. Patient states she's doing well, and feeling better today. She still has abdominal pain but she says it's well controlled with the pain medication. Patient currently denies nausea, vomiting, chest pain, SOB at rest and with O2 support. - Constitutional Vitals: Temp Pulse Resp BP Pulse Ox 98.4 F 104 28 108/57 95 01/20/18 07:04 01/20/18 07:04 01/20/18 07:04 01/20/18 07:04 01/20/18 07:04 General appearance: Present: cooperative, mild distress (Abdominal pain in RUQ) , A&O X 3, pleasant, obese, answers questions appropriately - Head Head exam: Present: atraumatic, normocephalic - Eye Eye exam: Present: PERRL, conjuntiva pink, sclera anicteric Pupils: Present: PERRL - Neck Neck exam general surgery: Present: supple, trachea midline. Absent: lymphadenopathy - Respiratory Respiratory exam: Present: decreased breath sounds, wheezes - Cardiovascular Cardiovascular exam: Present: RRR. Absent: irregular rhythm, JVD, systolic murmur - GI/Abdominal GI/Abdominal exam: Present: hypoactive bowel sounds, soft, tenderness (in RUQ). Absent: diminished bowel sounds, distended, guarding, normal bowel sounds - Extremities Exam Extremities exam: Present: warm, radial pulses palpable and symmetrical. Absent : calf tenderness, cyanotic, pedal edema - Neurological Exam Neurological exam: Present: alert, CN II-XII intact, oriented X3, no focal deficits. Absent: altered, pronater drift, facial droop, speech deficit - Psychiatric Psychiatric exam: Present: normal affect, normal mood Internal Medicine: Result - Labs CBC & Chem 7: 01/20/18 04:41 01/20/18 04:41 Labs: Short CBC 01/20/18 Range/Units 04:41 WBC 8.8 (4.3-11.1) K/mcL Hgb 8.4 L D (11.5-15.4) g/dL Hct 27.0 L (35.3-44.9) % Plt Count 180 (140-400) K/mcL Neutrophils # 8.1 (1.6-8.9) K/mcL BMP 01/20/18 04:41 Sodium 138 Potassium 4.5 Chloride 110 H Carbon Dioxide 20 L BUN 36 H Creatinine 1.80 H Glucose 63 L Calcium 7.2 L Cardiac Enzymes 01/19/18 01/19/18 Range/Units 14:59 20:24 Troponin I 0.03 0.03 (< 0.04) ng/mL Liver Function 01/20/18 Range/Units 04:41 Total Bilirubin 0.4 (0.3-1.0) mg/dL AST 21 (13-39) Units/L ALT 9 (7-52) Units/L Alkaline Phosphatase 46 (34-104) Units/L Albumin 2.7 L (3.5-5.7) g/dL - ABG Interpretation ABG results: PT/INR, D-dimer PT 18.0 Seconds (9.4-12.1) H 01/20/18 04:41 - VTE Documentation of Mechanical Device: Intermittent pneumatic compression device Consult Discharge Plan - Plan Referrals: Albina Bryson MD [Primary Care Provider] - <GavidylanGibran estrada - Last Filed: 01/20/18 12:55> Date of Encounter: 01/20/18 - Assessment and plan (1) DVT prophylaxis Current Visit: Yes Status: Acute (2) Anemia Current Visit: Yes Status: Chronic Qualifiers: Anemia type: unspecified type Qualified Code(s): D64.9 - Anemia, unspecified (3) Abdominal pain Current Visit: Yes Status: Acute Qualifiers: Abdominal location: right lower quadrant Qualified Code(s): R10.31 - Right lower quadrant pain (4) Goals of care, counseling/discussion Current Visit: Yes Status: Acute (5) COPD (chronic obstructive pulmonary disease) Current Visit: Yes Status: Chronic Qualifiers: COPD type: unspecified COPD Qualified Code(s): J44.9 - Chronic obstructive pulmonary disease, unspecified (6) HTN (hypertension) Current Visit: Yes Status: Chronic Qualifiers: Hypertension type: essential hypertension Qualified Code(s): I10 - Essential (primary) hypertension (7) Sepsis Current Visit: Yes Status: Acute Qualifiers: Sepsis type: sepsis due to unspecified organism Qualified Code(s): A41.9 - Sepsis, unspecified organism (8) Perforated abdominal viscus Current Visit: Yes Status: Acute (9) CHF (congestive heart failure) Current Visit: Yes Status: Chronic Qualifiers: Heart failure type: unspecified Heart failure chronicity: chronic Qualified Code(s): I50.9 - Heart failure, unspecified - Time Spent With Patient Total time spent is greater than 50% in coordination of care (as documented) at patient's floor/unit and/or counseling patient: - Constitutional Vitals: Temp Pulse Resp BP Pulse Ox 98.5 F 103 24 107/50 95 01/20/18 11:49 01/20/18 11:49 01/20/18 11:49 01/20/18 11:49 01/20/18 11:49 Internal Medicine: Result - Labs CBC & Chem 7: 01/20/18 04:41 01/20/18 04:41 Labs: Short CBC 01/20/18 Range/Units 04:41 WBC 8.8 (4.3-11.1) K/mcL Hgb 8.4 L D (11.5-15.4) g/dL Hct 27.0 L (35.3-44.9) % Plt Count 180 (140-400) K/mcL Neutrophils # 8.1 (1.6-8.9) K/mcL BMP 01/20/18 04:41 Sodium 138 Potassium 4.5 Chloride 110 H Carbon Dioxide 20 L BUN 36 H Creatinine 1.80 H Glucose 63 L Calcium 7.2 L Cardiac Enzymes 01/19/18 01/19/18 Range/Units 14:59 20:24 Troponin I 0.03 0.03 (< 0.04) ng/mL Liver Function 01/20/18 Range/Units 04:41 Total Bilirubin 0.4 (0.3-1.0) mg/dL AST 21 (13-39) Units/L ALT 9 (7-52) Units/L Alkaline Phosphatase 46 (34-104) Units/L Albumin 2.7 L (3.5-5.7) g/dL - ABG Interpretation ABG results: PT/INR, D-dimer PT 18.0 Seconds (9.4-12.1) H 01/20/18 04:41 - Attending Attestation Bowel perforation related to possible malignancy or diverticular disease patient and family prefer hospice services at this time may continue cipro an flagyl IV day #2 ok to resume diet since hospice is preferred. TPN may not add any benefit due to the patient's poor prognosis Surgery did not recommend any intervention I examined this patient and my medical decision-making was reviewed with the Resident Physician. I agree with the documented findings, disposition and treatment plan as described except to the extent set forth below.
--- NOTE | 2018-01-20 09:22 | Palliative Progress Note ---
Date of Encounter: 01/20/18 Time of Encounter: 09:00 - Assessment and plan (1) Dyspnea, unspecified Current Visit: Yes Status: Acute Assessment and plan: Patient's oxygen level drops to 80s% when mask came off. When reapplied, oxygen saturation increases to 95%. Patient denies dyspnea during time of assessment. Family reports patient received breathing treatment last night and breathing much better afterwards. Continue oxygen therapy and Duonebs. Qualifiers: Dyspnea type: shortness of breath Qualified Code(s): R06.02 - Shortness of breath; R06.00 - Dyspnea, unspecified; R06.01 - Orthopnea (2) Abdominal pain Current Visit: No Status: Resolved Assessment and plan: Patient rates current pain level 5/10, described as dull ache. Patient reports Oxycodone has helped "a lot" and wishes to remain on Oxycodone at current dose. Fentanyl has been placed on hold. Continue Tylenol and Oxycodone as ordered. Qualifiers: Abdominal location: generalized Qualified Code(s): R10.84 - Generalized abdominal pain (3) Mass of peritoneum Current Visit: No Status: Acute Assessment and plan: Oncology has been consulted. Patient continues to refuse Chemo or radiation. (4) Goals of care, counseling/discussion Current Visit: Yes Status: Acute Assessment and plan: Patient reports feeling much better today. Patient and family have agreed that best plan would be to continue IVF and IV Antibiotics at this time and then discharge to short term rehabilitation upon patient's discharge. Patient's family mentioned patient going to [facility] upon discharge. Patient agreed. Notified 2NE block and case maker of pending discharge arrangements. (5) Debility, unspecified Current Visit: Yes Status: Acute Assessment and plan: Patient reports increased weakness. PT/OT ordered to evaluate if patient needs SNF at discharge. - Time Spent With Patient Total time spent is greater than 50% in coordination of care (as documented) at patient's floor/unit and/or counseling patient: - Subjective Interval history: Met with patient and patient's daughter, Halle/BAILEY; no other family present at bedside. Patient resting quietly upon arrival; alert and oriented times three. Complains of continued abdominal pain rated a 5/10, described as a dull ache; reports Oxycodone has improved pain level "it's stable now." Patient has received two doses of Oxycodone, Fentanyl was administered once and then placed on hold, and zero doses of Tylenol administered in the last 24 hours. Patient reports improved breathing ability, and no longer shallow breathing. Patient denies Patient and daughter discussed the potential of short term rehab on discharge, requested [facility]. Patient reports she feels that she is able to try to work with therapy some today. Family verbalized wish for patient to stay a couple more days in the hospital for continued IV antibiotics and IVF as they appear to be helping patient. - Constitutional Vitals: Abnormal lab results RBC 3.03 M/mcL (3.82-4.97) L 01/20/18 04:41 Hgb 8.4 g/dL (11.5-15.4) L D 01/20/18 04:41 Hct 27.0 % (35.3-44.9) L 01/20/18 04:41 MCH 27.7 pg (28.0-33.3) L 01/20/18 04:41 MCHC 31.1 g/dL (31.6-35.5) L 01/20/18 04:41 RDW 15.9 % (11.5-14.5) H 01/20/18 04:41 Band Neutrophils % 19.0 % (0-4) H 01/19/18 08:44 Lymphocytes # 0.4 K/mcL (0.6-4.6) L 01/20/18 04:41 Nucleated RBCs/100 WBC 0.3 /100 WBC (0) H 01/20/18 04:41 Large Platelets Present (Not Present) A 01/20/18 04:41 Hypochromasia Present (Not Present) A 01/20/18 04:41 PT 18.0 Seconds (9.4-12.1) H 01/20/18 04:41 Chloride 110 mEq/L (98-107) H 01/20/18 04:41 Carbon Dioxide 20 mEq/L (23-29) L 01/20/18 04:41 BUN 36 mg/dL (8-23) H 01/20/18 04:41 Creatinine 1.80 mg/dL (0.60-1.20) H 01/20/18 04:41 Est GFR ( Amer) 32 (> 60) L 01/20/18 04:41 Est GFR (Non-Af Amer) 27 (> 60) L 01/20/18 04:41 Glucose 63 mg/dL (70-105) L 01/20/18 04:41 Calcium 7.2 mg/dL (8.6-10.3) L 01/20/18 04:41 B-Natriuretic Peptide 773 pg/mL (Less than 100) H 01/19/18 08:43 Serum Total Protein 5.7 g/dL (6.4-8.9) L 01/20/18 04:41 Albumin 2.7 g/dL (3.5-5.7) L 01/20/18 04:41 Albumin/Globulin Ratio 0.9 (1.1-2.2) L 01/20/18 04:41 HDL Cholesterol 29 mg/dL (40-59) L 01/20/18 04:41 Lipase 3 Units/L (11-82) L 01/19/18 08:44 General appearance: Present: cooperative, no acute distress, obese - Head Head exam: Present: atraumatic, normal inspection - Expanded Head Exam Head exam: Absent: general tenderness - Eye Eye exam: Present: normal appearance, PERRL. Absent: nystagmus, periorbital swelling, periorbital tenderness Pupils: Present: normal accommodation, PERRL - ENT ENT exam: Present: mucous membranes dry, normal external ear exam - Neck Neck exam: Present: full ROM, normal inspection - Respiratory Respiratory exam: Present: wheezes. Absent: respiratory distress - Cardiovascular Cardiovascular exam: Present: RRR, +S1, +S2. Absent: irregular rhythm - GI/Abdominal GI/Abdominal exam: Present: firm, guarding, hypoactive bowel sounds, tenderness. Absent: soft - Rectal Rectal exam: Present: deferred - Expanded Exam Female exam: Present: deferred - Extremities Exam Extremities exam: Present: full ROM, normal capillary refill, normal inspection. Absent: pedal edema - Back Exam Back exam: Present: normal inspection - Neurological Exam Neurological exam: Present: alert, oriented X3, strengths equal and symetr throughout. Absent: facial droop - Psychiatric Psychiatric exam: Present: normal affect, normal mood - Skin Skin exam: Present: dry, normal color, warm. Absent: mottled, pallor Palliative Quality Palliative Quality: Screen for Code Status: Yes, Screen for Goals of Care: Yes, Screen for Pain: Yes, If Pain Regimen Started, Initiate Bowel Regimen: NA, Screen for Nausea/Vomitting: Yes Code Status: 01/19/18 13:08 Resuscitation Status: Active [RES] Routine Comment: Resuscitation Status: [id number] - Labs CBC & Chem 7: 01/20/18 04:41 01/20/18 04:41 Labs: Laboratory Results - last 24 hr 01/19/18 01/19/18 01/19/18 13:09 14:59 20:24 WBC RBC Hgb Hct MCV MCH MCHC RDW Plt Count MPV Immature Gran % Seg Neutrophils % Lymphocytes % Monocytes % Eosinophils % Basophils % Neutrophils # Lymphocytes # Monocytes # Eosinophils # Basophils # Nucleated RBCs/100 WBC Platelet Estimate Large Platelets Hypochromasia PT INR APTT Sodium Potassium Chloride Carbon Dioxide BUN Creatinine Est GFR ( Amer) Est GFR (Non-Af Amer) BUN/Creatinine Ratio Glucose Calculated Osmolality Lactic Acid 2.3 H Calcium Magnesium Total Bilirubin AST ALT Alkaline Phosphatase Troponin I 0.03 0.03 Serum Total Protein Albumin Globulin Albumin/Globulin Ratio Triglycerides Cholesterol LDL Cholesterol, Calc VLDL Cholesterol, Calc HDL Cholesterol Cholesterol/HDL Ratio 01/19/18 01/20/18 01/20/18 23:35 04:41 04:41 WBC 8.8 RBC 3.03 L Hgb 8.4 L D Hct 27.0 L MCV 89.1 MCH 27.7 L MCHC 31.1 L RDW 15.9 H Plt Count 180 MPV 11.2 Immature Gran % 0.9 Seg Neutrophils % 92.0 Lymphocytes % 4.6 Monocytes % 2.0 Eosinophils % 0.3 Basophils % 0.2 Neutrophils # 8.1 Lymphocytes # 0.4 L Monocytes # 0.2 Eosinophils # 0.0 Basophils # 0.0 Nucleated RBCs/100 WBC 0.3 H Platelet Estimate Normal Large Platelets Present A Hypochromasia Present A PT 18.0 H INR 1.7 APTT 30.8 Sodium Potassium Chloride Carbon Dioxide BUN Creatinine Est GFR ( Amer) Est GFR (Non-Af Amer) BUN/Creatinine Ratio Glucose Calculated Osmolality Lactic Acid 0.9 Calcium Magnesium Total Bilirubin AST ALT Alkaline Phosphatase Troponin I Serum Total Protein Albumin Globulin Albumin/Globulin Ratio Triglycerides Cholesterol LDL Cholesterol, Calc VLDL Cholesterol, Calc HDL Cholesterol Cholesterol/HDL Ratio 01/20/18 04:41 WBC RBC Hgb Hct MCV MCH MCHC RDW Plt Count MPV Immature Gran % Seg Neutrophils % Lymphocytes % Monocytes % Eosinophils % Basophils % Neutrophils # Lymphocytes # Monocytes # Eosinophils # Basophils # Nucleated RBCs/100 WBC Platelet Estimate Large Platelets Hypochromasia PT INR APTT Sodium 138 Potassium 4.5 Chloride 110 H Carbon Dioxide 20 L BUN 36 H Creatinine 1.80 H Est GFR ( Amer) 32 L Est GFR (Non-Af Amer) 27 L BUN/Creatinine Ratio 20 Glucose 63 L Calculated Osmolality 292 Lactic Acid Calcium 7.2 L Magnesium 1.8 Total Bilirubin 0.4 AST 21 ALT 9 Alkaline Phosphatase 46 Troponin I Serum Total Protein 5.7 L Albumin 2.7 L Globulin 3.0 Albumin/Globulin Ratio 0.9 L Triglycerides 84 Cholesterol 92 LDL Cholesterol, Calc 46 VLDL Cholesterol, Calc 17 HDL Cholesterol 29 L Cholesterol/HDL Ratio 3.2 - ABG Interpretation ABG results: PT/INR, D-dimer PT 18.0 Seconds (9.4-12.1) H 01/20/18 04:41 Consult Discharge Plan - Plan Referrals: Albina Bryson MD [Primary Care Provider] -
[2018-01-20] MEDS: Ipratropium/Albuterol Neb 3 ML IH PRN ×2 (09:56→19:59)
[2018-01-20 11:23] LABS: Estimated Average Glucose 120 mg/dl; Hemoglobin A1C 5.8 %
--- NOTE | 2018-01-20 11:57 | General Surgery Progress Note ---
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 The patient has been evaluated by palliative care and for this consultation with the patient and daughter, with consensus reached to discontinue al further interventional therapy and pursue comfort care. As a result of this consultation, CODE STATUS has been changed to DNR/DNI/CCA per the wishes of the patient and her family. The daughter had some questions regarding transfer to an ECF for approximately 30 days followed by hospice care at home. Transfer to ECF is dependent upon insurance, the availability of beds patient's suitability for such care. We revisited the patient's clinical diagnosis - perforated viscus either due to diverticular disease versus progressive intraperitoneal neoplasm/carcinomatosis. Surgical options were again discussed and clearly would only be palliative. The patient is only interested in controlling her abdominal pain. Per my discussion with the patient and her daughter, they do not wish to pursue surgery. A question raised by the medical team pertaining to TPN was discussed with the patient's providers. TPN will provide calories and protein to the patient but also to the diffuse intraperitoneal neoplasm. TPN will not provide any palliative benefit but is more likely to extend the patient's suffering. Recommendations: Continue IV antibiotics until the patient is pain free; if necessary, recheck a CT abdomen/pelvis to document resolution of the intraperitoneal air; and then consider resumption of enteral nutrition. Per patient and her daughter- surgical intervention is not anticipated Objective Vital Signs - Last 8 Hours Temp Pulse Resp BP Pulse Ox 01/20/18 09:58 28 98 01/20/18 07:04 98.4 F 104 28 108/57 95 01/20/18 04:03 100.4 F H 100 32 124/60 91 Intake and Output 01/19/18 01/20/18 01/20/18 23:59 07:59 15:59 Intake Total 1100 / 1100 Output Total 300 / 300 Balance 800 / 800 Intake: IV Fluids 1100 / 1100 0.9 % Sodium Chloride 1,000 ML 1000 / 1000 @ 100 mls/hr IVC .Q10H [facility] Rx#: [id number] Flagyl Premix 500 MG/100 ML 500 100 / 100 mg In 100 ml @ 100 mls/hr IVPB Q8HR [facility] Rx#:[id number] Oral 0 / 0 Output: Urine 300 / 300 Other: Stool Size Small Stool Consistency loose Stool Color Brown # Voids 1 # Bowel Movements 1 Weight 81.3 kg Patient Weight 01/20/18 23:59 Weight 81.3 kg - Labs 01/20/18 04:41 01/20/18 04:41 Diabetes panel 01/20/18 01/20/18 Range/Units 04:41 04:41 Sodium 138 (136-145) mEq/L Potassium 4.5 (3.5-5.1) mEq/L Chloride 110 H (98-107) mEq/L Carbon Dioxide 20 L (23-29) mEq/L BUN 36 H (8-23) mg/dL Creatinine 1.80 H (0.60-1.20) mg/dL Glucose 63 L (70-105) mg/dL Hemoglobin A1c 5.8 H ( - 5.6) % Calcium 7.2 L (8.6-10.3) mg/dL AST 21 (13-39) Units/L ALT 9 (7-52) Units/L Alkaline Phosphatase 46 (34-104) Units/L Albumin 2.7 L (3.5-5.7) g/dL Triglycerides 84 (< 150) mg/dL HDL Cholesterol 29 L (40-59) mg/dL Calcium panel 01/20/18 Range/Units 04:41 Calcium 7.2 L (8.6-10.3) mg/dL Albumin 2.7 L (3.5-5.7) g/dL Pituitary panel 01/20/18 Range/Units 04:41 Sodium 138 (136-145) mEq/L Potassium 4.5 (3.5-5.1) mEq/L Chloride 110 H (98-107) mEq/L Carbon Dioxide 20 L (23-29) mEq/L BUN 36 H (8-23) mg/dL Creatinine 1.80 H (0.60-1.20) mg/dL Glucose 63 L (70-105) mg/dL Calcium 7.2 L (8.6-10.3) mg/dL Adrenal panel 01/20/18 Range/Units 04:41 Sodium 138 (136-145) mEq/L Potassium 4.5 (3.5-5.1) mEq/L Chloride 110 H (98-107) mEq/L Carbon Dioxide 20 L (23-29) mEq/L BUN 36 H (8-23) mg/dL Creatinine 1.80 H (0.60-1.20) mg/dL Glucose 63 L (70-105) mg/dL Calcium 7.2 L (8.6-10.3) mg/dL Total Bilirubin 0.4 (0.3-1.0) mg/dL AST 21 (13-39) Units/L ALT 9 (7-52) Units/L Alkaline Phosphatase 46 (34-104) Units/L Albumin 2.7 L (3.5-5.7) g/dL - VTE Documentation of Mechanical Device: Intermittent pneumatic compression device Consult Discharge Plan - Plan Referrals: Albina Bryson MD [Primary Care Provider] -
--- NOTE | 2018-01-20 13:41 | Event Note ---
Date of Encounter: 01/20/18 Time of Encounter: 13:00 Met with patient, her daughter (BAILEY), and Granddaughter to follow up after surgical consultation. Family verbalized understanding that patient would not be sustainable to go to rehab with no plan for nutrition. Patient verbalized wanting to be kept comfortable; however, wishes to maintain current treatment plan with IVF and IV antibiotics until Tuesday prior to discharging with Hospice. Family is interested in hospice care at [facility] with [facility]; however, spoke with Nydia Guillory at [facility] and [facility] does not cover [facility] so family is interested in [facility] hospice at [facility]. Family verbalized understanding that hospice in [facility] would be private pay. Patient verbalized wishes to go home, but does not want to be a physical burden to family so interested in [facility]. Family was upset regarding poor prognosis. Requested [facility], Skyler De La Torre contacted whom came to bedside and spoke with family. Spoke with Dr. Negron and met agreement to continue current treatment plan until Tuesday for patient to be ready for discharge with hospice. 1400:Family called this check writer back to room. Family changed mind to take patient home with [facility]. Wants to wait until tuesday to allow for continued Antibiotics and time to arrange for equipment delivery. Family requested patient be able to have grandchildren ages 3-22 to visit. Nursing informed check writer would accommodate as they could allow. Verbal order given for PRN Ativan. Notified Nursing Palliative would have coverage over the weekend. Veronique WILHELM, Dr. Negron, and Nurse notified of change in discharge planning.
[2018-01-20] MEDS ORDERED: *HR* LORazepam Oral Conc 2 MG/ML SL PRN (14:05)
[2018-01-20] MEDS ORDERED: GI Cocktail 40 ML EACH PO ONE (14:08)
[2018-01-20] MEDS: OXYCODONE Oral CONC 10 MG/0.5 ML ORAL.SYG SL SCH ×2 (14:33→18:07)
[2018-01-21] MEDS: OXYCODONE Oral CONC 10 MG/0.5 ML ORAL.SYG SL SCH ×7 (00:35→23:58)
[2018-01-21] MEDS: MetroNIDAZOLE 500 MG/100 ML 500 MG/100 ML BAG IVPB SCH ×3 (00:35→16:58)
[2018-01-21 00:47] LABS: Hematocrit 27.1 % (35.3-44.9); Hemoglobin 8.5 g/dL (11.5-15.4); Mean Corpuscular HGB Conc 31.4 g/dL (31.6-35.5); Mean Corpuscular Hemoglobin 27.9 pg (28.0-33.3); Mean Corpuscular Volume 88.9 fL (83.0-100.0); Mean Platelet Volume 11.1 fL (9.4-12.4); Platelet Count 183 K/mcL (140-400); Red Blood Count 3.05 M/mcL (3.82-4.97)
[2018-01-21 01:06] LABS: Albumin 2.5 g/dL (3.5-5.7); Albumin/Globulin Ratio 0.7 (1.1-2.2); Bilirubin,Total 0.4 mg/dL (0.3-1.0); Calcium 6.9 mg/dL (8.6-10.3); Globulin 3.4 g/dL (2.4-3.5); Potassium 4.4 mEq/L (3.5-5.1); Total Protein 5.9 g/dL (6.4-8.9)
[2018-01-21 01:32] LABS: Platelet Estimate Normal (Normal)
[2018-01-21 01:34] LABS: Anisocytosis 1+ (Not Present); Lymphocytes # 0.2 K/mcL (0.6-4.6); Monocytes # 0.6 K/mcL (0.0-1.3); Neutrophils # 9.3 K/mcL (1.6-8.9)
[2018-01-21] MEDS: Pantoprazole 40 MG VIAL IVP SCH ×2 (06:44→16:59)
[2018-01-21] MEDS ORDERED: Aminoglycoside Consult 1 EACH MC ONE (07:54)
--- NOTE | 2018-01-21 10:49 | Palliative Progress Note ---
Date of Encounter: 01/21/18 Time of Encounter: 10:15 - Assessment and plan (1) Nausea Current Visit: Yes Status: Acute Assessment and plan: Patient c/o upset stomach. TUMS PRN. Will add PRN Zofran for comfort. No vomiting. (2) Abdominal pain Current Visit: No Status: Acute Assessment and plan: Patient with peritoneal mass. Ovarian Ca mets. Oxycodone scheduled and patient refused overnight x 2 doses but received dose at 9am. Denies pain at present. Abdomen tender to touch, hyperactive BS and passing flatus. Patient NPO. Oral care provided. Qualifiers: Abdominal location: right lower quadrant Qualified Code(s): R10.31 - Right lower quadrant pain (3) Dyspnea, unspecified Current Visit: Yes Status: Acute Assessment and plan: History COPD. ON 3L NC O2 with sats 94%. HOB up. Encouraged to CDB and do IS. Performed IS x 10. Up to 300. Duonebs, O2 and position with HOB up. Qualifiers: Dyspnea type: shortness of breath Qualified Code(s): R06.02 - Shortness of breath; R06.00 - Dyspnea, unspecified; R06.01 - Orthopnea (4) Goals of care, counseling/discussion Current Visit: Yes Status: Acute Assessment and plan: Patient to transition home with Hospice care on Tuesday. Patients has 3 daughters and 3rd daughter is to arrive late this evening from out of town. Educated daughter at bedside about NPO status and goals of comfort diet discussed. Ordered chapstick for lips. 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 DNRCC - A, DNI. - Time Spent With Patient Total time spent is greater than 50% in coordination of care (as documented) at patient's floor/unit and/or counseling patient: 25 - 35 minutes - Subjective Interval history: Patient in bed. Alert, slightly KASAAN. Daughter at bedside. Patient c/o nausea. - Constitutional Vitals: Abnormal lab results RBC 3.05 M/mcL (3.82-4.97) L 01/21/18 00:27 Hgb 8.5 g/dL (11.5-15.4) L 01/21/18 00:27 Hct 27.1 % (35.3-44.9) L 01/21/18 00:27 MCH 27.9 pg (28.0-33.3) L 01/21/18 00:27 MCHC 31.4 g/dL (31.6-35.5) L 01/21/18 00:27 RDW 16.0 % (11.5-14.5) H 01/21/18 00:27 Band Neutrophils % 10.0 % (0-4) H 01/21/18 00:27 Neutrophils # 9.3 K/mcL (1.6-8.9) H 01/21/18 00:27 Lymphocytes # 0.2 K/mcL (0.6-4.6) L 01/21/18 00:27 Nucleated RBCs/100 WBC 0.3 /100 WBC (0) H 01/20/18 04:41 Large Platelets Present (Not Present) A 01/20/18 04:41 Hypochromasia Present (Not Present) A 01/20/18 04:41 Anisocytosis 1+ (Not Present) A 01/21/18 00: PT 18.0 Seconds (9.4-12.1) H 01/20/18 04:41 Sodium 134 mEq/L (136-145) L 01/21/18 00:27 Chloride 108 mEq/L (98-107) H 01/21/18 00:27 Carbon Dioxide 19 mEq/L (23-29) L 01/21/18 00:27 BUN 43 mg/dL (8-23) H 01/21/18 00:27 Creatinine 2.25 mg/dL (0.60-1.20) H 01/21/18 00:27 Est GFR ( Amer) 25 (> 60) L 01/21/18 00:27 Est GFR (Non-Af Amer) 21 (> 60) L 01/21/18 00:27 Hemoglobin A1c 5.8 % (-5.6) H 01/20/18 04:41 Calcium 6.9 mg/dL (8.6-10.3) L 01/21/18 00:27 B-Natriuretic Peptide 773 pg/mL (Less than 100) H 01/19/18 08:43 Serum Total Protein 5.9 g/dL (6.4-8.9) L 01/21/18 00:27 Albumin 2.5 g/dL (3.5-5.7) L 01/21/18 00:27 Albumin/Globulin Ratio 0.7 (1.1-2.2) L 01/21/18 00:27 HDL Cholesterol 29 mg/dL (40-59) L 01/20/18 04:41 Lipase 3 Units/L (11-82) L 01/19/18 08:44 - Head Head exam: Present: atraumatic, normal inspection - Eye Eye exam: Present: PERRL - ENT ENT exam: Present: mucous membranes moist - Neck Neck exam: Present: tenderness - Respiratory Respiratory exam: Present: decreased breath sounds - Expanded Respiratory Exam Location: decreased breath sounds: Left, Right, Lower - Cardiovascular Cardiovascular exam: Present: RRR, +S1, +S2 - Expanded Cardiovascular Exam Peripheral pulses: 1+: Femoral (L) PM, Femoral (R) PM, Posterior Tibialis (L), Posterior Tibialis (R), 2+: Carotid (L) PM, Carotid (R) PM, Radial (L), Radial ( R), Dorsalis Pedis (L) PM, Dorsalis Pedis (R) PM - GI/Abdominal GI/Abdominal exam: Present: firm, hyperactive bowel sounds, tenderness - External exam: Present: normal external exam Additional comments: Dalal catheter draining clear dark brown urine. - Extremities Exam Extremities exam: Present: normal inspection - Neurological Exam Neurological exam: Present: alert, oriented X3 - Psychiatric Psychiatric exam: Present: flat affect - Skin Skin exam: Present: pallor, warm Palliative Quality Palliative Quality: Screen for Code Status: Yes, Screen for Goals of Care: Yes, Screen for Pain: Yes, If Pain Regimen Started, Initiate Bowel Regimen: NA, Screen for Nausea/Vomitting: Yes - Labs CBC & Chem 7: 01/21/18 00:27 01/21/18 00:27 Labs: Laboratory Results - last 24 hr 01/20/18 01/21/18 01/21/18 04:41 00:27 00:27 WBC 10.1 RBC 3.05 L Hgb 8.5 L Hct 27.1 L MCV 88.9 MCH 27.9 L MCHC 31.4 L RDW 16.0 H Plt Count 183 MPV 11.1 Seg Neutrophils % 82.0 Band Neutrophils % 10.0 H Lymphocytes % 2.0 Monocytes % 6.0 Neutrophils # 9.3 H Lymphocytes # 0.2 L Monocytes # 0.6 Platelet Estimate Normal Anisocytosis 1+ A Sodium 134 L Potassium 4.4 Chloride 108 H Carbon Dioxide 19 L BUN 43 H Creatinine 2.25 H Est GFR ( Amer) 25 L Est GFR (Non-Af Amer) 21 L BUN/Creatinine Ratio 19 Glucose 80 Est Mean Plasma Glucose 120 Hemoglobin A1c 5.8 H Calculated Osmolality 288 Calcium 6.9 L Total Bilirubin 0.4 AST 20 ALT 8 Alkaline Phosphatase 46 Serum Total Protein 5.9 L Albumin 2.5 L Globulin 3.4 Albumin/Globulin Ratio 0.7 L - ABG Interpretation ABG results: PT/INR, D-dimer PT 18.0 Seconds (9.4-12.1) H 01/20/18 04:41 Consult Discharge Plan - Plan Referrals: Albina Bryson MD [Primary Care Provider] -
[2018-01-21] MEDS: Ondansetron 4 MG/2 ML VIAL IVP PRN (10:58)
--- NOTE | 2018-01-21 11:23 | Internal Med Progress Note ---
Date of Encounter: 01/21/18 Time of Encounter: 11:21 - Assessment and plan (1) Perforated abdominal viscus Current Visit: Yes Status: Acute Assessment and plan: Bowel perforation related to possible malignancy or diverticular disease patient and family prefer hospice services at this time may continue cipro an flagyl IV day #3 ok to resume diet since hospice is preferred. TPN may not add any benefit due to the patient's poor prognosis Surgery did not recommend any intervention CT of abdomen/pelvis today suspicious for perforated viscus with fluid seen adjacent to left side of the colon. Diverticulosis is seen in this region and perforation of the colon could cause this appearance. Patient is currently medically managed with IVF and IV abx. Patient is currently able to make decisions, and has decided to move forward with ECF and hospice. Patient is high risk for SIRS criteria, currently does not meet any of the criteria. - surgery was consulted; discussed with Surgery patient is a poor candidate for surgery and patient declined surgery as well . (2) Anemia Current Visit: Yes Status: Chronic Assessment and plan: Acute blood lows anemia, unclear source Hx of chronic anemia. Hgb 10.3 on admission, today hgb dropped to 8.4 Stop labs as the patient is on hospice Qualifiers: Anemia type: unspecified type Qualified Code(s): D64.9 - Anemia, unspecified (3) Abdominal pain Current Visit: No Status: Acute Assessment and plan: Secondary to bowel perforation Abdominal pain in RUQ - patient is cancer and hospice patient, will be liberal on administrating pain medication Qualifiers: Abdominal location: right lower quadrant Qualified Code(s): R10.31 - Right lower quadrant pain (4) Goals of care, counseling/discussion Current Visit: Yes Status: Acute Assessment and plan: Patient has declined further chemotherapy treatment. Palliative care has been consulted, and family and patient are in agreement with hospice. Will treat with medical management, but plan on ECF then Home hospice after. Patient is DNR/DNI/CCA. - appreciate input from Palliative care (5) COPD (chronic obstructive pulmonary disease) Current Visit: Yes Status: Chronic Assessment and plan: Hx of chronic COPD. Stable. Supplemental O2 w/titration and SpO2 monitoring. DuoNebs Q6. Continue pts. inhalers. Qualifiers: COPD type: unspecified COPD Qualified Code(s): J44.9 - Chronic obstructive pulmonary disease, unspecified (6) HTN (hypertension) Current Visit: Yes Status: Chronic Assessment and plan: Hx of chronic HTN. Monitor pt. and VS. Pts. meds to be held d/t N/V over past three days. Will administer IV Cardizem and/or hydralazine as needed. Qualifiers: Hypertension type: essential hypertension Qualified Code(s): I10 - Essential (primary) hypertension (7) Sepsis Current Visit: Yes Status: Acute Assessment and plan: currently does not meet sepsis criteria. Will medically manage. Qualifiers: Sepsis type: sepsis due to unspecified organism Qualified Code(s): A41.9 - Sepsis, unspecified organism (8) CHF (congestive heart failure) Current Visit: Yes Status: Chronic Assessment and plan: Hx of chronic CHF. Stable. Will monitor pt. for signs of fluid overload. May continue mild hydration Qualifiers: Heart failure type: unspecified Heart failure chronicity: chronic Qualified Code(s): I50.9 - Heart failure, unspecified - Time Spent With Patient Total time spent is greater than 50% in coordination of care (as documented) at patient's floor/unit and/or counseling patient: - Subjective Interval history: Denies any abdominal pain, complains of distention, no nausea, no chest or shortness of breath, tachycardic at times, no dysuria or diarrhea, had a fever 100.8 on 01/19/2018 - Constitutional Vitals: Temp Pulse Resp BP Pulse Ox 98.6 F 101 15 107/52 94 01/21/18 06:56 01/21/18 06:56 01/21/18 06:56 01/21/18 06:56 01/21/18 06:56 General appearance: Present: cooperative, mild distress (Abdominal pain in RUQ) , A&O X 3, pleasant, obese, answers questions appropriately - Head Head exam: Present: atraumatic, normocephalic - Eye Eye exam: Present: PERRL, conjuntiva pink, sclera anicteric Pupils: Present: PERRL - Neck Neck exam general surgery: Present: supple, trachea midline. Absent: lymphadenopathy - Respiratory Respiratory exam: Present: decreased breath sounds, CTAB. Absent: accessory muscle use, rales, rhonchi, wheezes - Cardiovascular Cardiovascular exam: Present: RRR, +S1, +S2. Absent: diastolic murmur, gallop, rubs, systolic murmur - GI/Abdominal GI/Abdominal exam: Present: distended (Abdomen is very distended, mild diffuse tenderness), normal bowel sounds, soft, no peritoneal signs. Absent: tenderness - Extremities Exam Extremities exam: Present: pedal edema (+2 pitting edema in both lower extremities), warm, radial pulses palpable and symmetrical. Absent: calf tenderness, cyanotic - Neurological Exam Neurological exam: Present: CN II-XII intact, oriented X3, no focal deficits. Absent: pronater drift, facial droop, speech deficit - Skin Skin exam: Present: dry, intact Internal Medicine: Result - Labs CBC & Chem 7: 01/21/18 00:27 01/21/18 00:27 Labs: Short CBC 01/21/18 Range/Units 00:27 WBC 10.1 (4.3-11.1) K/mcL Hgb 8.5 L (11.5-15.4) g/dL Hct 27.1 L (35.3-44.9) % Plt Count 183 (140-400) K/mcL Neutrophils # 9.3 H (1.6-8.9) K/mcL BMP 01/21/18 00:27 Sodium 134 L Potassium 4.4 Chloride 108 H Carbon Dioxide 19 L BUN 43 H Creatinine 2.25 H Glucose 80 Calcium 6.9 L Liver Function 01/21/18 Range/Units 00:27 Total Bilirubin 0.4 (0.3-1.0) mg/dL AST 20 (13-39) Units/L ALT 8 (7-52) Units/L Alkaline Phosphatase 46 (34-104) Units/L Albumin 2.5 L (3.5-5.7) g/dL - ABG Interpretation ABG results: PT/INR, D-dimer PT 18.0 Seconds (9.4-12.1) H 01/20/18 04:41 - VTE Documentation of Mechanical Device: Intermittent pneumatic compression device Consult Discharge Plan - Plan Referrals: Albina Bryson MD [Primary Care Provider] -
--- NOTE | 2018-01-21 16:59 | Electrocardiograph Report ---
[place] [id number] Test Date: 2018-01-19 Pat Name: Juanis Walden Department: 102 Room: 2NE26 Gender: F Turner Machine: : [id number] Requested By: Paul Meng Order Number: [id number] Reading MD: Milagros Brar Measurements Intervals [place] Rate: 102 P: 54 W[place]: 198 QRS: -16 QRSD: 65 T: 33 QT: 339 QTc: 398 Interpretive Statements SINUS TACHYCARDIA WITH OCCASIONAL SUPRAVENTRICULAR PREMATURE COMPLEXES LOW QRS VOLTAGE IN PRECORDIAL LEADS [QRS DEFLECTION < 1.0 mV IN CHEST LEADS] NONSPECIFIC T-WAVE ABNORMALITY ABNORMAL RHYTHM ECG Electronically Signed On 01-21-2018 16:57:43 EDT by Milagros Brar
[2018-01-21] MEDS: Ipratropium/Albuterol Neb 3 ML IH PRN (18:34)
[2018-01-21] MEDS: Ipratropium/Albuterol Neb 3 ML IH SCH (23:46)
[2018-01-22] MEDS: MetroNIDAZOLE 500 MG/100 ML 500 MG/100 ML BAG IVPB SCH ×2 (00:01→09:02)
[2018-01-22] MEDS: OXYCODONE Oral CONC 10 MG/0.5 ML ORAL.SYG SL SCH ×7 (04:04→23:33)
[2018-01-22] MEDS: Ipratropium/Albuterol Neb 3 ML IH SCH ×5 (04:29→20:16)
[2018-01-22] MEDS: Pantoprazole 40 MG VIAL IVP SCH ×2 (06:17→18:03)
[2018-01-22] MEDS: Ondansetron 4 MG/2 ML VIAL IVP PRN (09:02)
--- NOTE | 2018-01-22 11:13 | Palliative Progress Note ---
Date of Encounter: 01/22/18 Time of Encounter: 10:30 - Assessment and plan (1) Nausea Current Visit: Yes Status: Acute Assessment and plan: PRN Zofran for comfort. Patient had 2 doses in past 24 hours. No vomiting. (2) Abdominal pain Current Visit: No Status: Acute Assessment and plan: Perforated viscus questionable malignancy versus diverticulum. Patient with peritoneal mass. Ovarian Ca mets. Oxycodone scheduled and patient refused overnight x 2 doses but received dose an AM dose. Unable to provide verbal response to pain. Abdomen tender to touch, hyperactive BS with facial grimace. Patient NPO. Oral care provided. Qualifiers: Abdominal location: right lower quadrant Qualified Code(s): R10.31 - Right lower quadrant pain (3) Dyspnea, unspecified Current Visit: Yes Status: Acute Assessment and plan: History COPD. ON 10L NC O2 with sats 94%. Duonebs, O2 and position with HOB up. Light oral suction PRN. Goal to wean down high flow O2 to keep sats >93%. Qualifiers: Dyspnea type: shortness of breath Qualified Code(s): R06.02 - Shortness of breath; R06.00 - Dyspnea, unspecified; R06.01 - Orthopnea (4) Goals of care, counseling/discussion Current Visit: Yes Status: Acute Assessment and plan: Patient with decline over past 24 hrs. Lethargic, B/P 84/44, Tachycardia, cool extremities. Daughters and nephew as bedside. Discussed patients overall decline in past 24 hrs. Daughters agree. Patient opens eyes but nonverbal. Overall weakness. Family agree to stop all antibiotics and fluids and focus on comfort care. Will transition code status to comfort care and will have PC team evaluate ability to transfer home in AM. Recommend transition to GIP in AM as patient with poor prognosis. Patient with increased abdominal distention and tenderness to abdomen. Suspect patient aspirated last night as family states attempted liquid feeding. Low grade temp 100.0, scattered rales to right lobe and need for high flow O2. Provide suction at bedside. Case discussed with Dr. Ashby. - Time Spent With Patient Total time spent is greater than 50% in coordination of care (as documented) at patient's floor/unit and/or counseling patient: 25 - 35 minutes - Subjective Interval history: Patient in bed. Daughters at bedside. Patient O2 increased overnight to 10L high flow. Patient less responsive today. Opens eyes to name but nonverbal. Tachycardia, low grade 100.0 temp, cool extremities, B/P 84/43. Family attempted po liquids yesterday for comfort. Possible aspiration from liquids? Discussed POC with family. - Constitutional Vitals: Abnormal lab results RBC 3.05 M/mcL (3.82-4.97) L 01/21/18 00:27 Hgb 8.5 g/dL (11.5-15.4) L 01/21/18 00:27 Hct 27.1 % (35.3-44.9) L 01/21/18 00:27 MCH 27.9 pg (28.0-33.3) L 01/21/18 00:27 MCHC 31.4 g/dL (31.6-35.5) L 01/21/18 00:27 RDW 16.0 % (11.5-14.5) H 01/21/18 00:27 Band Neutrophils % 10.0 % (0-4) H 01/21/18 00:27 Neutrophils # 9.3 K/mcL (1.6-8.9) H 01/21/18 00:27 Lymphocytes # 0.2 K/mcL (0.6-4.6) L 01/21/18 00:27 Nucleated RBCs/100 WBC 0.3 /100 WBC (0) H 01/20/18 04:41 Large Platelets Present (Not Present) A 01/20/18 04:41 Hypochromasia Present (Not Present) A 01/20/18 04:41 Anisocytosis 1+ (Not Present) A 01/21/18 00:27 PT 18.0 Seconds (9.4-12.1) H 01/20/18 04:41 Sodium 134 mEq/L (136-145) L 01/21/18 00:27 Chloride 108 mEq/L (98-107) H 01/21/18 00:27 Carbon Dioxide 19 mEq/L (23-29) L 01/21/18 00:27 BUN 43 mg/dL (8-23) H 01/21/18 00:27 Creatinine 2.25 mg/dL (0.60-1.20) H 01/21/18 00:27 Est GFR ( Amer) 25 (> 60) L 01/21/18 00:27 Est GFR (Non-Af Amer) 21 (> 60) L 01/21/18 00:27 Hemoglobin A1c 5.8 % (-5.6) H 01/20/18 04:41 Calcium 6.9 mg/dL (8.6-10.3) L 01/21/18 00:27 B-Natriuretic Peptide 773 pg/mL (Less than 100) H 01/19/18 08:43 Serum Total Protein 5.9 g/dL (6.4-8.9) L 01/21/18 00:27 Albumin 2.5 g/dL (3.5-5.7) L 01/21/18 00:27 Albumin/Globulin Ratio 0.7 (1.1-2.2) L 01/21/18 00:27 HDL Cholesterol 29 mg/dL (40-59) L 01/20/18 04:41 Lipase 3 Units/L (11-82) L 01/19/18 08:44 - Head Head exam: Present: atraumatic - Eye Eye exam: Present: PERRL - ENT ENT exam: Present: mucous membranes dry - Respiratory Respiratory exam: Present: decreased breath sounds, rales Additional comments: Right lung with scattered rales. Requiring high flow O2. - Expanded Respiratory Exam Location: decreased breath sounds: Left, Lower, rales: Right, Upper, Lower - Cardiovascular Cardiovascular exam: Present: RRR, +S1, +S2, tachycardia - Expanded Cardiovascular Exam Peripheral pulses: 1+: Femoral (L) PM, Femoral (R) PM, Posterior Tibialis (L), Posterior Tibialis (R), 2+: Carotid (L) PM, Carotid (R) PM, Radial (L), Radial ( R), Dorsalis Pedis (L) PM (cool), Dorsalis Pedis (R) PM (cool) - GI/Abdominal GI/Abdominal exam: Present: distended, firm, hyperactive bowel sounds, tenderness - External exam: Present: normal external exam Additional comments: Dalal with dark concentrated urine - Extremities Exam Extremities exam: Present: normal capillary refill - Neurological Exam Neurological exam: Present: altered - Psychiatric Psychiatric exam: Present: flat affect - Skin Skin exam: Present: intact, pallor Palliative Quality Palliative Quality: Screen for Code Status: Yes, Screen for Goals of Care: Yes, Screen for Pain: Yes, If Pain Regimen Started, Initiate Bowel Regimen: NA, Screen for Nausea/Vomitting: Yes - Labs CBC & Chem 7: 01/21/18 00:27 01/21/18 00:27 Labs: Laboratory Results - last 24 hr 01/20/18 01/20/18 01/21/18 20:32 23:12 05:42 POC Glucose 90 86 90 01/21/18 11:45 POC Glucose 81 - ABG Interpretation ABG results: PT/INR, D-dimer PT 18.0 Seconds (9.4-12.1) H 01/20/18 04:41 Consult Discharge Plan - Plan Referrals: Albina Bryson MD [Primary Care Provider] -
--- NOTE | 2018-01-22 11:16 | Internal Med Progress Note ---
Date of Encounter: 01/22/18 Time of Encounter: 11:14 - Assessment and plan (1) Perforated abdominal viscus Current Visit: Yes Status: Acute Assessment and plan: Acute metabolic encephalopathy secondary to sepsis from perforated bowel related to possible malignancy or diverticular disease Will pursue comfort measures only patient and family prefer hospice services at this time Discontinue cipro an flagyl IV at day #4 ok to resume diet since hospice is preferred. TPN may not add any benefit due to the patient's poor prognosis Surgery did not recommend any intervention CT of abdomen/pelvis today suspicious for perforated viscus with fluid seen adjacent to left side of the colon. Diverticulosis is seen in this region and perforation of the colon could cause this appearance. Patient is currently medically managed with IVF and IV abx. Patient is currently able to make decisions, and has decided to move forward with ECF and hospice. Patient is high risk for SIRS criteria, currently does not meet any of the criteria. - surgery was consulted; discussed with Surgery patient is a poor candidate for surgery and patient declined surgery as well . (2) Sepsis Current Visit: Yes Status: Acute Assessment and plan: Acute metabolic encephalopathy secondary to sepsis from perforated bowel hypotension, BP in the 80s , bands were 19%( bandemia) Qualifiers: Qualified Code(s): A41.9 - Sepsis, unspecified organism (3) Anemia Current Visit: Yes Status: Chronic Assessment and plan: Acute blood lows anemia, unclear source Hx of chronic anemia. Hgb 10.3 on admission, today hgb dropped to 8.4 Stopped labs as the patient is on hospice Qualifiers: Qualified Code(s): D64.9 - Anemia, unspecified (4) Abdominal pain Current Visit: No Status: Acute Assessment and plan: Secondary to bowel perforation Abdominal pain in RUQ - patient is cancer and hospice patient, will be liberal on administrating pain medication Qualifiers: Qualified Code(s): R10.31 - Right lower quadrant pain (5) Goals of care, counseling/discussion Current Visit: Yes Status: Acute Assessment and plan: Patient has declined further chemotherapy treatment. Palliative care has been consulted, and family and patient are in agreement with hospice. Will treat with medical management, but plan on ECF then Home hospice after. Patient is DNR/DNI/CCA. - appreciate input from Palliative care (6) COPD (chronic obstructive pulmonary disease) Current Visit: Yes Status: Chronic Assessment and plan: Hx of chronic COPD. Stable. Supplemental O2 w/titration and SpO2 monitoring. DuoNebs Q6. Continue pts. inhalers. Qualifiers: Qualified Code(s): J44.9 - Chronic obstructive pulmonary disease, unspecified (7) HTN (hypertension) Current Visit: Yes Status: Chronic Assessment and plan: Hx of chronic HTN. Monitor pt. and VS. Will administer IV Cardizem and/or hydralazine as needed. Qualifiers: Qualified Code(s): I10 - Essential (primary) hypertension (8) CHF (congestive heart failure) Current Visit: Yes Status: Chronic Assessment and plan: Hx of chronic CHF. Stable. Will monitor pt. for signs of fluid overload. May continue mild hydration Qualifiers: Qualified Code(s): I50.9 - Heart failure, unspecified - Time Spent With Patient Total time spent is greater than 50% in coordination of care (as documented) at patient's floor/unit and/or counseling patient: - Subjective Interval history: Very lethargic, unable to complete review of systems, had a fever 100.8 on 01/19 - Constitutional Vitals: Temp Pulse Resp BP Pulse Ox 100.0 F H 139 22 84/69 97 01/22/18 10:22 01/22/18 10:22 01/22/18 10:22 01/22/18 10:22 01/22/18 10:22 General appearance: Present: cooperative, A&O X 1, mild distress (Abdominal pain in RUQ), pleasant, obese, answers questions appropriately Exam: - Head Head exam: Present: atraumatic, normocephalic Very lethargic, wakes up with stimuli - Eye Eye exam: Present: PERRL, conjuntiva pink, sclera anicteric Pupils: Present: PERRL - Neck Neck exam general surgery: Present: supple, trachea midline. Absent: lymphadenopathy - Respiratory Respiratory exam: Present: decreased breath sounds, CTAB. Absent: accessory muscle use, rales, rhonchi, wheezes - Cardiovascular Cardiovascular exam: Present: RRR, +S1, +S2. Absent: diastolic murmur, gallop, rubs, systolic murmur - GI/Abdominal GI/Abdominal exam: Present: distended (Abdomen is very distended, mild diffuse tenderness), normal bowel sounds, soft, no peritoneal signs. Absent: tenderness - Extremities Exam Extremities exam: Present: pedal edema (+2 pitting edema in both lower extremities), warm, radial pulses palpable and symmetrical. Absent: calf tenderness, cyanotic - Neurological Exam Neurological exam: Present: CN II-XII intact, oriented X1, no focal deficits. Absent: pronater drift, facial droop, speech deficit - Skin Skin exam: Present: dry, intact Internal Medicine: Result - Labs CBC & Chem 7: 01/21/18 00:27 01/21/18 00:27 - ABG Interpretation ABG results: PT/INR, D-dimer PT 18.0 Seconds (9.4-12.1) H 01/20/18 04:41 - VTE Documentation of Mechanical Device: Intermittent pneumatic compression device Consult Discharge Plan - Plan Referrals: Albina Bryson MD [Primary Care Provider] -
[2018-01-22] MEDS ORDERED: Scopolamine Patch 1.5 MG PATCH.TD72 TD PRN (11:28)
[2018-01-23] MEDS: Ipratropium/Albuterol Neb 3 ML IH SCH ×4 (00:13→10:49)
[2018-01-23] MEDS: OXYCODONE Oral CONC 10 MG/0.5 ML ORAL.SYG SL SCH ×3 (05:33→10:56)
[2018-01-23] MEDS: Pantoprazole 40 MG VIAL IVP SCH (05:40)
--- NOTE | 2018-01-23 08:35 | Discharge Summary ---
Orders not resulted at time of discharge: Pending orders 01/19/18 20:16 Culture,Blood [BC] Stat 01/19/18 20:24 Culture,Blood,Additional [BC] Stat 01/22/18 06:51 EKG [ECG 12 lead ECG] [ECG] Stat Date of Encounter: 02/15/18 Time of Encounter: 08:33 - Discharge Diagnosis (1) Perforated abdominal viscus Priority: Primary Status: Acute Assessment and Plan: Acute metabolic encephalopathy secondary to sepsis from perforated bowel related to possible malignancy or diverticular disease . (2) Sepsis Priority: Primary Status: Acute (3) Anemia Priority: Secondary Status: Chronic Assessment and Plan: Acute blood lows anemia, unclear source Hx of chronic anemia. Hgb 10.3 on admission, hgb dropped to 8.4 Stopped labs as the patient is on hospice Qualifiers: Anemia type: unspecified type Qualified Code(s): D64.9 - Anemia, unspecified (4) Abdominal pain Priority: Primary Status: Acute Assessment and Plan: Secondary to bowel perforation Abdominal pain in RUQ - patient is cancer and hospice patient, will be liberal on administrating pain medication Qualifiers: Abdominal location: right lower quadrant Qualified Code(s): R10.31 - Right lower quadrant pain (5) Goals of care, counseling/discussion Priority: Secondary Status: Acute Assessment and Plan: Patient has declined further chemotherapy treatment. Palliative care has been consulted, and family and patient are in agreement with hospice. Will treat with medical management, but plan on ECF then Home hospice after. Patient is DNR/DNI/CCA. (6) COPD (chronic obstructive pulmonary disease) Priority: Secondary Status: Chronic Assessment and Plan: Hx of chronic COPD. Stable. Supplemental O2 w/titration and SpO2 monitoring. DuoNebs Q6. Continue pts. inhalers. Qualifiers: COPD type: unspecified COPD Qualified Code(s): J44.9 - Chronic obstructive pulmonary disease, unspecified (7) HTN (hypertension) Priority: Secondary Status: Chronic Qualifiers: Hypertension type: essential hypertension Qualified Code(s): I10 - Essential (primary) hypertension (8) CHF (congestive heart failure) Priority: Secondary Status: Chronic Qualifiers: Heart failure type: diastolic Heart failure chronicity: chronic Qualified Code(s): I50.32 - Chronic diastolic (congestive) heart failure Hospital course: Ms. 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 ER MI positive has been on endocrine therapy since 01/26/16. on single agent Femara, patient did not want chemotherapy or surgery with increasing CA 125 and CA 27-29. Current value CA 125 around 321 on 11/10/2017 and CA-27-29 525 on CAT scan showed progression mainly in that anterior peritoneal wall metastasis per DR Sam's documentation. She was hospitalized with abdominal pain, nausea, emesis and fever. CT scan of abdomen has shown intraperitoneal air extraluminal noted anteriorly in the abdomen indicating possibility of perforated viscus. Increased omental caking with progressive peritoneal metastatic disease. PAtient was being treated with intravenous antibiotics and pain medications, due to metastatic malignancy associated prognosis and per her wishes. Will pursue comfort measures only patient and family preferred hospice services at this time Discontinued cipro an flagyl IV at day #4 CT of abdomen/pelvis today suspicious for perforated viscus with fluid seen adjacent to left side of the colon. Diverticulosis is seen in this region and perforation of the colon could cause this appearance. Patient is currently medically managed with IVF and IV abx. Patient is currently able to make decisions, and has decided to move forward with ECF and hospice. Patient is high risk for SIRS criteria, currently does not meet any of the criteria. - surgery was consulted; discussed with Surgery patient is a poor candidate for surgery and patient declined surgery as well, Surgery did not recommend any intervention. On 01/22/18 she started decompensating, was diagnosed withAcute metabolic encephalopathy secondary to sepsis from perforated bowel . hypotension, BP in the 80s , bands were 19%( bandemia). Was evaluated by the Palliative care team. She will be accepted by Dr Cameron's team today to continue hospice services as inpatient. - Time Spent with Patient Total time spent providing and/or coordinating discharge services: Greater than 30 minutes (40 min) - Discharge Medications Home Medications: Albuterol Sulfate [Albuterol Inhaler] 1 puff IH Q4HR PRN 04/29/15 [History] Furosemide [Lasix] 40 mg PO BID PRN 04/29/15 [History] Mometasone/Formoterol [Dulera 200 Mcg/5 Mcg Inhaler] 2 puff IH BID 04/29/15 [ History] Febuxostat [Uloric] 40 mg PO DAILY #30 tablet 10/26/16 [Rx] Potassium Chloride [Klor-Con 10] 10 meq PO Q48H 11/08/16 [History] Aspirin [Lo-Dose Aspirin EC] 81 mg PO DAILY 06/01/17 [History] Calcium Carbonate [Calcium] 500 mg PO DAILY 06/01/17 [History] Fosinopril Sodium 20 mg PO BID 06/01/17 [History] Ipratropium/Albuterol Neb [Duoneb] 3 ml IH [id number] PRN 06/01/17 [History] Memantine [Namenda] 5 mg PO DAILY #30 tablet 11/11/17 [Rx] Ascorbate Calcium [Vitamin C] 500 mg PO DAILY #30 tablet 12/15/17 [Rx] Ferrous Sulfate [Iron] 325 mg PO DAILY #30 tablet 12/15/17 [Rx] Letrozole [Femara] 2.5 mg PO DAILY #90 tablet 01/11/18 [Rx] Diltiazem CD (24hr) [Cardizem CD] 180 mg PO DAILY 01/19/18 [History] Meloxicam [Meloxicam] 15 mg PO DAILY 01/19/18 [History] Metoprolol Tartrate [Metoprolol Tartrate] 50 mg PO BID 01/19/18 [History] hydrOXYzine HCl [Hydroxyzine HCl] 1 - 2 tab PO HS PRN 01/19/18 [History] hydroCHLOROthiazide [Hydrochlorothiazide] 25 mg PO DAILY 01/19/18 [History] LORazepam Oral Conc [Ativan Oral Conc] 0.25 mg SL Q2H PRN 7 Days mls 01/23/18 [ Rx] OXYCODONE Oral CONC [Oxycodone Oral Conc] 10 mg SL Q4H 7 Days oral.syg [Rx] Scopolamine Patch [Transderm-Scop] 1.5 mg TD Q72H PRN patch.td72 01/23/18 [Rx] Allergies/Adverse Reactions: 3 Allergy/AdvReac Type Severity Reaction Status Date / Time Penicillins Allergy Mild Hives, Verified 01/19/18 09:58 itch, shortness of breath Bisphosphonates AdvReac Unconscious Verified 01/19/18 09:58 Date of admission: 01/19/18 13:08 Primary care physician: Albina Bryson Consults: 01/19/18 13:18 Consult to Palliative Care [CONS] Routine Comment: Consulting Provider: Palliative [facility] Reason for Consult: Patient has hx of breast cancer and now ovarian cancer that she takes only hormone therapy for. Pt. has opted out of radiation and chemotherapy tx and is not optimal candidate for surgery. Discussed Palliative Care role in her care and she and daughter expressed interest in beginning discussion. Call Completed: Yes 01/19/18 13:46 Consult to Oncology [CONS] Routine Consulting Provider: [facility] Reason for Consult: Patient has hx of breast cancer and now dx of ovarian cancer which she takes Femara for. Has opted out of chemo and radiation tx. Pt. is admitted for perforated bowel and is NPO w/meds held. Has also opted out of surgical intervention for perforated bowel in favor of abx and pain mgmt. Will defer decision regarding Femara use to Oncology. Pt. is followed by Dr. Sam. Call Completed: Yes 01/20/18 09:14 Consult to Occupational Therapy [CONS] Routine Comment: Evaluate, develop and implement POC Reason for Consult: Evaluate for possible SNF at discharge d/t weakness Does patient have active BEDREST order?: No Is patient medically & hemodynamically stable?: Yes Consult to Physical Therapy [CONS] Routine Comment: Evaluate, develop and implement POC Reason for Consult: Evaluate for possible SNF at discharge d/t weakness Does patient have active BEDREST order?: No Is patient medically & hemodynamically stable?: Yes - Constitutional Vitals: Temp Pulse Resp BP Pulse Ox 98.9 F 126 22 65/33 91 01/22/18 20:00 01/22/18 20:00 01/22/18 20:14 01/22/18 20:00 01/22/18 20:14 General appearance: Present: A&O X 0, mild distress (Abdominal pain in RUQ) Exam: - Head Head exam: Present: atraumatic, normocephalic Very lethargic, wakes up with stimuli - Eye Eye exam: Present: PERRL, conjuntiva pink, sclera anicteric Pupils: Present: PERRL - Neck Neck exam general surgery: Present: supple, trachea midline. Absent: lymphadenopathy - Respiratory Respiratory exam: Present: decreased breath sounds, CTAB. Absent: accessory muscle use, rales, rhonchi, wheezes - Cardiovascular Cardiovascular exam: Present: RRR, +S1, +S2. Absent: diastolic murmur, gallop, rubs, systolic murmur - GI/Abdominal GI/Abdominal exam: Present: distended (Abdomen is very distended, mild diffuse tenderness), normal bowel sounds, soft, no peritoneal signs. Absent: tenderness - Extremities Exam Extremities exam: Present: pedal edema (+2 pitting edema in both lower extremities), warm, radial pulses palpable and symmetrical. Absent: calf tenderness, cyanotic - Neurological Exam Neurological exam: Present: CN II-XII intact, oriented X0, no focal deficits. Absent: pronater drift, facial droop, speech deficit - Skin Skin exam: Present: dry, intact - Patient Status Disposition: Hospice - Medical Facility Condition: Fair - Discharge Instructions Follow Up With: Albina Bryson MD [Primary Care Provider] - - VTE Documentation of Mechanical Device: Intermittent pneumatic compression device
[2018-01-23] MEDS ORDERED: Atropine Sulfate 1% 40 DROP/2 ML BOTTLE SL PRN (08:51)
[2018-01-23] MEDS ORDERED: Acetaminophen 650 MG RECTAL SUPP RC PRN (08:52)
[2018-01-23 08:57] VITALS: BP 62/33
--- NOTE | 2018-01-23 09:18 | Palliative Progress Note ---
Date of Encounter: 01/23/18 Time of Encounter: 08:40 - Assessment and plan (1) Dyspnea, unspecified Current Visit: Yes Status: Acute Assessment and plan: Patient's oxygen 89% with NC. Continue Duonebs PRN and Oxygen. Qualifiers: Dyspnea type: shortness of breath Qualified Code(s): R06.02 - Shortness of breath; R06.00 - Dyspnea, unspecified; R06.01 - Orthopnea (2) Abdominal pain Current Visit: No Status: Resolved Assessment and plan: Patient unable to verbalize if in pain. No non-verbal pain signs noted during assessment. Patient has been receiving a minimum of 2 doses of scheduled Oxycodone daily for the last 72 hours. Qualifiers: Abdominal location: generalized Qualified Code(s): R10.84 - Generalized abdominal pain (3) Mass of peritoneum Current Visit: No Status: Acute Assessment and plan: Oncology has been consulted. Patient continues to refuse Chemo or radiation. Goal to transfer patient to [facility] status today. (4) Goals of care, counseling/discussion Current Visit: Yes Status: Acute Assessment and plan: Patient is non-responsive today. Family reports goals to transition to [facility] status today for continued comfort. Notified Dr. Cameron. (5) Debility, unspecified Current Visit: Yes Status: Acute - Time Spent With Patient Total time spent is greater than 50% in coordination of care (as documented) at patient's floor/unit and/or counseling patient: - Subjective Interval history: Met with patient and 2 of patient's daughters; no other family present at bedside. Patient resting quietly upon arrival. Patient nonresponsive to verbal stimulation; arouses some to tactile stimulation. Family reports Hospitalist plan to transfer patient to [facility] hospice, informed family [facility] to come to evaluate first; family verbalized understanding. Patient non -reactive to palpation of abdomen; abdomen is distended and firm to palpation. Audible breathing with increased oral secretions noted, scopalamine patch in place. Patient quite warm to touch; family reports they didn't want her vital signs taken earlier or her repositioned but are okay with it now. Family reports they feel patient is experiencing a quick comfortable passing with great care; family is very pleased. - Constitutional Vitals: Abnormal lab results RBC 3.05 M/mcL (3.82-4.97) L 01/21/18 00:27 Hgb 8.5 g/dL (11.5-15.4) L 01/21/18 00:27 Hct 27.1 % (35.3-44.9) L 01/21/18 00:27 MCH 27.9 pg (28.0-33.3) L 01/21/18 00:27 MCHC 31.4 g/dL (31.6-35.5) L 01/21/18 00:27 RDW 16.0 % (11.5-14.5) H 01/21/18 00:27 Band Neutrophils % 10.0 % (0-4) H 01/21/18 00:27 Neutrophils # 9.3 K/mcL (1.6-8.9) H 01/21/18 00:27 Lymphocytes # 0.2 K/mcL (0.6-4.6) L 01/21/18 00:27 Nucleated RBCs/100 WBC 0.3 /100 WBC (0) H 01/20/18 04:41 Large Platelets Present (Not Present) A 01/20/18 04:41 Hypochromasia Present (Not Present) A 01/20/18 04:41 Anisocytosis 1+ (Not Present) A 01/21/18 00:27 PT 18.0 Seconds (9.4-12.1) H 01/20/18 04:41 Sodium 134 mEq/L (136-145) L 01/21/18 00:27 Chloride 108 mEq/L (98-107) H 01/21/18 00:27 Carbon Dioxide 19 mEq/L (23-29) L 01/21/18 00:27 BUN 43 mg/dL (8-23) H 01/21/18 00:27 Creatinine 2.25 mg/dL (0.60-1.20) H 01/21/18 00:27 Est GFR ( Amer) 25 (> 60) L 01/21/18 00:27 Est GFR (Non-Af Amer) 21 (> 60) L 01/21/18 00:27 Hemoglobin A1c 5.8 % (-5.6) H 01/20/18 04:41 Calcium 6.9 mg/dL (8.6-10.3) L 01/21/18 00:27 B-Natriuretic Peptide 773 pg/mL (Less than 100) H 01/19/18 08:43 Serum Total Protein 5.9 g/dL (6.4-8.9) L 01/21/18 00:27 Albumin 2.5 g/dL (3.5-5.7) L 01/21/18 00:27 Albumin/Globulin Ratio 0.7 (1.1-2.2) L 01/21/18 00:27 HDL Cholesterol 29 mg/dL (40-59) L 01/20/18 04:41 Lipase 3 Units/L (11-82) L 01/19/18 08:44 General appearance: Present: no acute distress - Head Head exam: Present: atraumatic, normal inspection - Eye Eye exam: Present: normal appearance, PERRL. Absent: periorbital swelling, periorbital tenderness Pupils: Present: normal accommodation - ENT ENT exam: Present: mucous membranes dry, normal external ear exam - Neck Neck exam: Present: normal inspection - Respiratory Respiratory exam: Present: rhonchi. Absent: accessory muscle use - Cardiovascular Cardiovascular exam: Present: +S1, +S2. Absent: irregular rhythm - Expanded Cardiovascular Exam Peripheral pulses: 1+: Carotid (L) PM, Carotid (R) PM, Dorsalis Pedis (L) PM, Dorsalis Pedis (R) PM - GI/Abdominal GI/Abdominal exam: Present: diminished bowel sounds, distended, firm, rigid. Absent: guarding - Rectal Rectal exam: Present: deferred - Extremities Exam Extremities exam: Present: normal capillary refill. Absent: pedal edema, tenderness - Neurological Exam Neurological exam: Present: altered - Psychiatric Psychiatric exam: Present: flat affect - Skin Skin exam: Present: dry, pallor, warm Palliative Quality Palliative Quality: Screen for Code Status: Yes, Screen for Goals of Care: Yes, Screen for Pain: Yes, If Pain Regimen Started, Initiate Bowel Regimen: NA, Screen for Nausea/Vomitting: Yes Code Status: 01/22/18 11:27 DNR [Resuscitation Status: Active] [RES] Routine Comment: Resuscitation Status: DNR-Comfort Care - Labs CBC & Chem 7: 01/21/18 00:27 01/21/18 00:27 Labs: Laboratory Results - last 24 hr 01/21/18 01/22/18 01/22/18 20:28 00:19 05:50 POC Glucose 71 78 75 01/22/18 10:29 POC Glucose 96 - ABG Interpretation ABG results: PT/INR, D-dimer PT 18.0 Seconds (9.4-12.1) H 01/20/18 04:41 Consult Discharge Plan - Plan Referrals: Albina Bryson MD [Primary Care Provider] -
== END 2018-01-23 12:59 | disposition hospice, inpatient (51) | DRG 871 ==
LOC: EMEROO 08:28 → 2NENU 08:28 → SUATTDRO 13:08 → 2NENU 13:52 → 2ANU 01-23 10:22
PROVIDERS: ADMIT Student in an Organized Health Care Education/Training Program; ATTEND Internal Medicine

== ENCOUNTER 2018-01-23 12:30 | Inpatient (IN) ==
[2018-01-23] MEDS ORDERED: Atropine Sulfate 1% 40 DROP/2 ML BOTTLE SL PRN (13:07)
[2018-01-23] MEDS ORDERED: Ipratropium/Albuterol Neb 3 ML IH PRN (13:07)
[2018-01-23] MEDS ORDERED: Acetaminophen 650 MG RECTAL SUPP RC PRN (13:07)
[2018-01-23] MEDS ORDERED: Bisacodyl 10 MG RECTAL SUPPOSITORY RC PRN (13:07)
[2018-01-23] MEDS ORDERED: Ondansetron ODT 4 MG TAB.RAPDIS SL PRN (13:07)
[2018-01-23] MEDS ORDERED: *HR* LORazepam Oral Conc 2 MG/ML PO PRN (13:07)
--- NOTE | 2018-01-23 13:48 | Pallative History & Physical ---
Date of Encounter: 01/23/18 Time of Encounter: 13:25 Assessment and Plan (1) Abdominal pain Current visit: No Status: Resolved As a result of abdominal perforation, is as a result of her ovarian cancer with wide metastatic disease. Is also her paternal diagnosis for Qualifiers: Abdominal location: generalized Qualified Code(s): R10.84 - Generalized abdominal pain (2) Carcinomatosis Current visit: No Status: Acute Metastatic ovarian cancer. (3) Pneumoperitoneum Current visit: No Status: Acute Bowel perforation for which she will be no further treatment all secondary to her widely metastatic ovarian cancer. (4) Goals of care, counseling/discussion Current visit: No Status: Acute DNR comfort care. Patient is in a rapid descent at this time and will require more medication for discomfort then I think can be done safely at home or group home at this time. Therefore the patient was brought in to general inpatient hospice table lysed and then reconsider for the possibility of going home with hospice. Internal Medicine - H&P: HPI Admitted From: Intrahospital Transfer Plans for Post Hospital Care: Hospice - Home History of present illness: Ms. Walden is a 87 year old female With a history of ovarian cancer rectal bleeding. She and family have decided against any further restive treatment. Hospice aspiration noted. She does take in a major turn downward family has opted for general inpatient hospice. General inpatient hospice as indicated for symptom management given the amount of medication that she is needed and the fact that she is in such rapid descent. Past Med Surg Social Fam HX - Past Medical History Medical history: asthma, cancer (Breast (Resolved) and current Ovarian (taking Femara)), CHF, COPD, hypertension Psychiatric history: no psych history - Past Surgical History Surgical History: appendectomy, breast surgery, cancer surgery, cholecystectomy , other - Social History Smoking Status: Former smoker Smokeless Tobacco Status: No Alcohol use: none Drug use: none - Family History Mother Family Member Ethnicity: Non- Living Status: Hx Family Cardiac Disorders: Yes Hx Family Respiratory Disorders: No Hx Family Cancer: No Hx Family Endocrine Disorder: Yes (DM) Hx Family Neurologic Disorders: No Father Family Member Ethnicity: Non- Living Status: Hx Family Cardiac Disorders: Yes (SC, HTN, HLD) Brother Family Member Ethnicity: Non- Living Status: Hx Family Cancer: Yes (Lung) Sister Family Member Ethnicity: Non- Living Status: Hx Family Cardiac Disorders: Yes (CVA) Hx Family Cancer: Yes (Brain tumor) Hx Family Neurologic Disorders: Yes (CVA) Internal Medicine - H&P: Meds Albuterol Sulfate [Albuterol Inhaler] 1 puff IH Q4HR PRN 04/29/15 [History] Furosemide [Lasix] 40 mg PO BID PRN 04/29/15 [History] Mometasone/Formoterol [Dulera 200 Mcg/5 Mcg Inhaler] 2 puff IH BID 04/29/15 [ History] Febuxostat [Uloric] 40 mg PO DAILY #30 tablet 10/26/16 [Rx] Potassium Chloride [Klor-Con 10] 10 meq PO Q48H 11/08/16 [History] Aspirin [Lo-Dose Aspirin EC] 81 mg PO DAILY 06/01/17 [History] Calcium Carbonate [Calcium] 500 mg PO DAILY 06/01/17 [History] Fosinopril Sodium 20 mg PO BID 06/01/17 [History] Ipratropium/Albuterol Neb [Duoneb] 3 ml IH [id number] PRN 06/01/17 [History] Memantine [Namenda] 5 mg PO DAILY #30 tablet 11/11/17 [Rx] Ascorbate Calcium [Vitamin C] 500 mg PO DAILY #30 tablet 12/15/17 [Rx] Ferrous Sulfate [Iron] 325 mg PO DAILY #30 tablet 12/15/17 [Rx] Letrozole [Femara] 2.5 mg PO DAILY #90 tablet 01/11/18 [Rx] Diltiazem CD (24hr) [Cardizem CD] 180 mg PO DAILY 01/19/18 [History] Meloxicam [Meloxicam] 15 mg PO DAILY 01/19/18 [History] Metoprolol Tartrate [Metoprolol Tartrate] 50 mg PO BID 01/19/18 [History] hydrOXYzine HCl [Hydroxyzine HCl] 1 - 2 tab PO HS PRN 01/19/18 [History] hydroCHLOROthiazide [Hydrochlorothiazide] 25 mg PO DAILY 01/19/18 [History] LORazepam Oral Conc [Ativan Oral Conc] 0.25 mg SL Q2H PRN 7 Days mls 01/23/18 [ Rx] OXYCODONE Oral CONC [Oxycodone Oral Conc] 10 mg SL Q4H 7 Days oral.syg [Rx] Scopolamine Patch [Transderm-Scop] 1.5 mg TD Q72H PRN patch.td72 01/23/18 [Rx] 3 Allergy/AdvReac Type Severity Reaction Status Date / Time Penicillins Allergy Mild Hives, Verified 01/19/18 09:58 itch, shortness of breath Bisphosphonates AdvReac Unconscious Verified 01/19/18 09:58 ROS unobtainable: due to mental status Palliative Care-Exam - Constitutional General appearance: Present: no acute distress - Head Head Exam: Present: atraumatic, normal inspection - Eye Eye exam: Present: normal appearance - Respiratory Respiratory exam: Present: decreased breath sounds, rhonchi (Upper airway noise) - Cardiovascular Cardiovascular exam: Present: RRR - GI/Abdominal Exam GI/Abdominal exam: Present: diminished bowel sounds, firm (But not rigid). Absent: rigid - Catheter Type: Urethral (Dalal) - Neurological Exam Neurological exam: Present: altered - Psychiatric Psychiatric exam: Absent: agitated, anxious - Skin Skin exam: Present: dry, warm Palliative Quality Palliative Quality: Screen for Code Status: Yes, Screen for Goals of Care: Yes, Screen for Pain: Yes, If Pain Regimen Started, Initiate Bowel Regimen: Yes, Screen for Nausea/Vomitting: Yes Code Status: 01/23/18 13:07 Resuscitation Status: Active [RES] Routine Comment: Resuscitation Status: DNR-Comfort Care
[2018-01-23] MEDS: OXYCODONE Oral CONC 10 MG/0.5 ML ORAL.SYG SL SCH ×2 (15:15→20:45)
[2018-01-24] MEDS: OXYCODONE Oral CONC 10 MG/0.5 ML ORAL.SYG SL SCH ×2 (00:04→04:25)
--- NOTE | 2018-01-24 09:33 | Death Note ---
Discharge Sum: Summary - Date and Time Date of admission: 01/23/18 13:09 Date of : 01/24/18 Time of : 07:14 - Summary Details: The patient was brought on to general inpatient hospice yesterday for symptomatic management of abdominal pain secondary to cancer that had metastasized and then ended up causing a perforation of the bowel. Since pain was well-controlled patient passed quietly and comfortably this morning's are 714 hours with family in attendance. Positive is resulting cancer, for years Comorbidities of breast cancer Years and perforated viscus for days. Also, COPD and hypertension as well as CHF She was a former smoker. - Additional Data Confirmation of as documented by pronouncing clinician: no pulse, no respirations Family: at bedside Attending/PCP notified?: Yes Attending physician: Fazal Cameron MD Was code activated?: No Autopsy requested?: No cloth colors examiner notified?: No Organ bank notified?: Yes Advance directives: Yes Hospice patient?: Yes Discharge Sum: Diag - PCOD Probable Cause of : Respiratory arrest Discharge Sum: Prov - Provider Primary care physician: Albina Bryson Consults: 01/23/18 13:07 Consult to Palliative Care [CONS] Routine Comment: Consulting Provider: Palliative Care [facility] Reason for Consult: GIP management Call Completed: No
--- NOTE | 2018-01-24 09:38 | Event Note ---
Date of Encounter: 01/24/18 Time of Encounter: 09:37 Hospice medical lab director certification of terminal illness: Hospice benefit. Start: 01/23/2018 Hospice benefit. In: +90 days Palliative performance scale: 15% History: Agent with a history for years of ovarian cancer for which she had been getting aggressive care, however this had transformed into peritoneal carcinomatosis which had then resulted in a bowel perforation. Quite hypotensive with this and did not respond well to therapy all aggressive therapy was withdrawn and patient and family is to comfort care only. Due to the fact the patient does have a history of ovarian cancer for which there is no more S of care, as well as a bowel perforation for which there is no surgical option as well as a history of breast cancer I believe that These findings support a life expectancy of 6 months or less. I attest that I have compose the above narrative based on my review of the patient's medical records, and or on my examination of the patient. the patient was actually evaluated by me on . This note is written on 2017. Fazal Cameron M.D. Associate medical receptionist biller. [facility]
[2018-01-26] MEDS ORDERED: Scopolamine Patch 1.5 MG PATCH.TD72 TD SCH (02:00)
== END 2018-01-24 07:14 | disposition expired | DRG 755 ==
LOC: 2ANU 13:09
PROVIDERS: ADMIT Family Medicine Hospice and Palliative Medicine; ATTEND Family Medicine Hospice and Palliative Medicine